=== PATIENT | female | born 1940 | race Asian ===

== ENCOUNTER 2017-08-03 20:58 | Inpatient (IN) | payer MEDICARE, OTHER ==
[~2017-08-03] VITALS: Ht 149.9 cm; Wt 57.2 kg
--- NOTE | 2017-08-03 23:46 | RADRPT ---
PROCEDURE: Chest. CLINICAL INDICATION: Chest pain. TECHNIQUE: Single frontal view of the chest was obtained. COMPARISON: None. FINDINGS: The cardiac silhouette is enlarged. The aortic arch is calcified. There is no focal consolidation, vascular congestion or pleural effusion. There is no pneumothorax. IMPRESSION: Mild cardiomegaly and aortic atherosclerosis. .Gianfranco Abbasi MD MD Date Time Electronically viewed and signed by .Gianfranco Abbasi MD, MD on 08/03/2017 23:46 .T/
--- NOTE | 2017-08-03 23:53 | RADRPT ---
PROCEDURE: CT Brain without contrast. CLINICAL INDICATION: Headache, syncope TECHNIQUE: A CT of the brain was performed utilizing axial imaging from the skull base through the vertex without intravenous contrast. Multiplanar reformatted images were made.The CTDIvol is 45.01 mGy and the DLP is 720.23 mGycm. One or more the following dose reduction techniques were utilized: Automated exposure control, adjus tment of the mA and / or kV according to patient's size, or use of iterative reconstruction techniqu e. DICOM images are available. COMPARISON: None. FINDINGS: There is no intracranial hemorrhage, mass effect, or midline shift. No extra-axial fluid collection is seen. Mild atrophy is identified with compensatory ventricular and sulcal enlargement. Mild to moderate decreased attenuation is seen in the periventricular and deep white matter, compatible wit h microvascular ischemic disease. The murray white matter differentiation is well preserved with no ac [place] infarct detected. No skull fracture seen. Appearance of fluid in the left sphenoid sinus which could be secondary to acute sinusitis. Arterial calcification. IMPRESSION: 1. No evidence of acute intracranial pathology. 2. Mild diffuse atrophy. 3. There is mild to moderate microvascular ischemic disease in the periventricular and deep white m atter. 4. Appearance of fluid in the left sphenoid sinus which could be secondary to acute sinusitis. RPTAT: HJES .Jose F Gandhi MD, MD Date Time Electronically viewed and signed by .Jose F Gandhi MD, MD on 08/03/2017 23:53 .S/
[2017-08-04] VITALS (18 sets, daily range): BP systolic 100–186; BP diastolic 40–101; PULSE 64–98; RESP 16–20; TEMP 98; Ht 149.9 cm; Wt 57.2 kg
[2017-08-04 00:41] LABS: BASOPHIL # 0.1 10^3/ul (0.0-0.1); BASOPHILS % 0.5 % (0.0-2.0); EOSINOPHILS % 0.2 % (0.0-7.0); HEMATOCRIT 34.5 % (37.0-47.0); MEAN CORPUSCULAR HEMOGLOBIN 28.6 pg (29.0-33.0); MEAN CORPUSCULAR HGB CONC 34.8 g/dl (32.0-37.0); MEAN CORPUSCULAR VOLUME 82.1 fl (82.0-101.0); MEAN PLATELET VOLUME 11.3 fl (7.4-10.4); MONOCYTES % 5.7 % (0.0-11.0); NEUTROPHIL # 13.7 10^3/ul (1.6-7.5); NEUTROPHILS % 80.7 % (39.0-77.0); PLATELET COUNT 398 10^3/UL (140-415); RED CELL DISTRIBUTION WIDTH 12.3 % (11.5-14.5)
[2017-08-04 00:56] LABS: INR 0.93; PROTIME 12.5 Sec (11.9-14.9)
--- NOTE | 2017-08-04 02:17 | ERD ---
ER Documentation Chief Complaint Chief Complaint weakness and shakey since last night, fall x4 today. -KO HPI This is a 77-year-old female complains of weakness and shakiness since last night. She states she fell 4 times today, 1 of which was a syncopal episode. No fevers no chills no nausea no vomiting no chest pain or palpitations. No focal neurologic complaints. No other current issues. ROS All systems reviewed and are negative except as per history of present illness. Allergies Allergies: Coded Allergies: Penicillins (Verified Allergy, Severe, Rash, 08/03/17) PMhx/Soc Medical and Surgical Hx: pt denies Surgical Hx History of Surgery: Yes (RIGHT SHOULDER, APPY, HYSTERECTOMY) Anesthesia Reaction: No Hx Neurological Disorder: No Hx Respiratory Disorders: No Hx Cardiac Disorders: Yes (HTN, HYPERLIPIDEMIA) Hx Psychiatric Problems: No Hx Miscellaneous Medical Probl: Yes (KIDNEY DISEASE IV, DM, HYPOTHYROID) Hx Alcohol Use: Yes (WINE) Hx Substance Use: No Hx Tobacco Use: No Smoking Status: Never smoker Physical Exam Vitals Vital Signs Date Time Temp Pulse Resp B/P Pulse Ox O2 Delivery O2 Flow Rate FiO2 08/04/17 01:17 60 14 200/77 100 Mask 4.0 Nasal Cannula 08/04/17 00:16 63 13 185/73 100 Mask 4.0 Nasal Cannula 08/03/17 23:13 97.8 63 18 167/66 92 Mask 8.0 08/03/17 21:33 96.5 96 18 213/88 99 Physical Exam Const: [] Head: Atraumatic Eyes: Normal Conjunctiva ENT: Normal External Ears, Nose and Mouth. Neck: Full range of motion..~ No meningismus. Resp: Clear to auscultation bilaterally Cardio: Regular rate and rhythm, no murmurs Abd: Soft, non tender, non distended. Normal bowel sounds Skin: No petechiae or rashes Back: No midline or flank tenderness Ext: No cyanosis, or edema Neur: Awake and alert Psych: Normal Mood and Affect Result Diagram: 08/04/17 0000 Results 24 hrs Laboratory Tests Test 08/04/17 00:00 White Blood Count 17.010^3/ul Red Blood Count 4.2010^6/ul Hemoglobin 12.0g/dl Hematocrit 34.5% Mean Corpuscular Volume 82.1fl Mean Corpuscular Hemoglobin 28.6pg Mean Corpuscular Hemoglobin Concent 34.8g/dl Red Cell Distribution Width 12.3% Platelet Count 50690^3/UL Mean Platelet Volume 11.3fl Neutrophils % 80.7% Lymphocytes % 12.0% Monocytes % 5.7% Eosinophils % 0.2% Basophils % 0.5% Nucleated Red Blood Cells % 0.0/100WBC Neutrophils # 13.710^3/ul Lymphocytes # 2.010^3/ul Monocytes # 1.010^3/ul Eosinophils # 0.010^3/ul Basophils # 0.110^3/ul Nucleated Red Blood Cells # 0.010^3/ul Prothrombin Time 12.5Sec Prothrombin Time Ratio 1.0 INR International Normalized Ratio 0.93 Activated Partial Thromboplast Time 28.0Sec Procedures/MDM EKG: Rate/Rhythm: [Normal Sinus Rhythm] QRS, ST, T-waves: [No changes consistent w/ acute ischemia] Impression: [No evidence of ischemia or arrhythmia] Chest X-ray 1V Interpreted by me: Soft Tissue: No acute abnormalities Bones: No acute abnormalities Mediastinum/Cardiac Silhouette/Lungs: [No acute abnormalities] Patient's syncopal symptoms are unstable at this time and require inpatient workup. No evidence of PE or dissection at this time but occult ischemia or fatal dysrhythmia cannot be ruled out. Departure Diagnosis: Primary Impression: Syncope Syncope type: unspecified Qualified Code: R55 - Syncope, unspecified syncope type Condition: Serious LAURAPAULINA WHELANJerome Aug 04, 2017 02:17
[2017-08-04] MEDS ORDERED: SOD CHLORIDE 0.9% 1,000 ML IV STA (02:52)
[2017-08-04 02:54] LABS: CALCIUM 9.2 mg/dl (8.4-10.2); CREATININE 2.13 mg/dl (0.44-1.00); POTASSIUM 5.2 mmol/L (3.5-5.1)
[2017-08-04 02:55] LABS: TROPONIN-I 0.121 ng/ml (0.00-0.12)
[2017-08-04] MEDS ORDERED: hydrALAzine 20 MG INJ IV ONE (03:00)
[2017-08-04] MEDS ORDERED: INSULIN REGULAR, HUMAN 100 UNIT/1 ML 3ML VIAL SC ONE (03:00)
[2017-08-04 04:26] LABS: URINE BLOOD (Dip) POC Trace-lysed (NEGATIVE)
[2017-08-04] MEDS ORDERED: INSULIN ASPART [NOVOLOG] 3 ML PEN SC ONE (04:39)
[2017-08-04 04:40] LABS: AADO2 Arterial 28.8 mmHg (7.0-24.0); Allen Test ACCEPTAB; Arterial Base Excess -5.7 mmol/L (-3.0-3); Arterial COHb 0.3 % (0.0-3.0); Arterial Fraction of Oxyhgb 98.3 % (93.0-99.0); Arterial HCO3 16.5 mmol/L (22.0-26.0); Arterial MetHb 0.2 % (0.0-1.5); Arterial Total Hemglobin 12.7 g/dl (12.0-18.0); MODE NASAL CANNULA
[2017-08-04] MEDS ORDERED: INSULIN ASP PROT/ASPART (70/30) PEN SC ONE (05:00)
[2017-08-04 05:08] LABS: CALCIUM 8.5 mg/dl (8.4-10.2); CREATININE 2.09 mg/dl (0.44-1.00)
[2017-08-04 05:20] LABS: CK-MB 6.43 ng/ml (0.0-2.4)
[2017-08-04 05:23] LABS: TROPONIN-I 0.185 ng/ml (0.00-0.12)
[2017-08-04] MEDS ORDERED: morphine 2 MG INJ IV PRN (05:30)
[2017-08-04] MEDS ORDERED: ALBUTEROL/IPRATROPIUM (NEB) 3 ML AMP NEB PRN (05:30)
[2017-08-04] MEDS ORDERED: INSULIN HUMAN REGULAR 100 UNIT in SOD CHLORIDE 0.9% 99 ML IV SCH (05:30)
[2017-08-04] MEDS ORDERED: METOPROLOL 25 MG TAB PO SCH ×2 (05:30→09:00)
[2017-08-04] MEDS ORDERED: DEXTROSE 50% 50 ML SYRINGE IV PRN ×2 (05:30)
[2017-08-04] MEDS ORDERED: ONDANSETRON 4 MG INJ IV PRN (05:30)
[2017-08-04] MEDS: ACCU-CHEK XX SCH ×19 (05:50→23:30)
[2017-08-04] MEDS: SOD CHLORIDE 0.9% 1,000 ML IV SCH ×2 (05:55→15:30)
[2017-08-04 05:58] LABS: BASOPHIL # 0.1 10^3/ul (0.0-0.1); BASOPHILS % 0.6 % (0.0-2.0); EOSINOPHILS # 0.1 10^3/ul (0.0-0.5); EOSINOPHILS % 0.5 % (0.0-7.0); HEMATOCRIT 34.9 % (37.0-47.0); HEMOGLOBIN 12.3 g/dl (12.0-16.0); LYMPHOCYTES # 2.7 10^3/ul (0.8-2.9); MEAN CORPUSCULAR HEMOGLOBIN 28.7 pg (29.0-33.0); MEAN CORPUSCULAR HGB CONC 35.2 g/dl (32.0-37.0); MEAN CORPUSCULAR VOLUME 81.5 fl (82.0-101.0); MEAN PLATELET VOLUME 11.5 fl (7.4-10.4); MONOCYTE # 1.1 10^3/ul (0.3-0.9); NEUTROPHIL # 13.7 10^3/ul (1.6-7.5); NEUTROPHILS % 77.2 % (39.0-77.0); PLATELET COUNT 395 10^3/UL (140-415); RED BLOOD COUNT 4.28 10^6/ul (4.20-5.40); RED CELL DISTRIBUTION WIDTH 11.9 % (11.5-14.5); WHITE BLOOD COUNT 17.7 10^3/ul (4.8-10.8)
[2017-08-04 06:15] LABS: BILIRUBIN,INDIRECT 0.2 mg/dl (0-1.1); BILIRUBIN,TOTAL 0.2 mg/dl (0.2-1.3); MAGNESIUM 2.2 mg/dl (1.7-2.5); TOTAL PROTEIN 6.5 g/dl (6.1-8.1)
[2017-08-04] MEDS: HEPARIN 5,000 UNIT/0.5 ML VIAL SC SCH ×3 (06:18→22:31)
[2017-08-04] MEDS: hydrALAzine 20 MG INJ IV PRN ×2 (06:27→16:21)
--- NOTE | 2017-08-04 07:22 | RADRPT ---
PROCEDURE: Retroperitoneal US. CLINICAL INDICATION: Renal insufficiency TECHNIQUE: Multiple sonographic images of the kidneys and retroperitoneum were obtained. The imag es were reviewed on a PACS workstation. COMPARISON: No prior studies are available for comparison. FINDINGS: The kidneys are normal in size, contour, cortical thickness and cortical echogenicity. The right kidney measures 11.4 cm. The left kidney measures 9.8 cm. No kidney stones are visualized. There is no evidence for hydronephrosis. The urinary bladder is normal. RPTAT: AA IMPRESSION: Unremarkable retroperitoneal ultrasound. .Kurt Guevara MD, Date Time Electronically viewed and signed by .Kurt Guevara MD, on 08/04/2017 07:22 .S/
--- NOTE | 2017-08-04 07:29 | RADRPT ---
AMENDMENT: 08/04/2017 8:03:23 AM Ledy Anderson Md In addition to the previously mentioned findings, there does appear to be incidental stenosis of the external carotid arteries with peak systolic velocity on the right of 227 centimeters per second an d on the left of 268 cm/sec. PROCEDURE: Doppler US Carotids. CLINICAL INDICATION: SYNCOPE TECHNIQUE: Multiple sonographic of the carotid bifurcation region and vertebral arteries were obta ined utilizing murray scale, duplex and color-flow imaging. The images were reviewed on a PACS worksta tion. Stenoses were measured using velocity criteria that are extrapolated from diameter data as def ined by the Society of Radiologists in Ultrasound Consensus Conference Radiology 2003; 229;340-346. This study does indirectly reference the measurement of the distal ICA diameter as the denominator f or stenosis measurement, where measured. COMPARISON: None FINDINGS: Evaluation of the right carotid system shows intimal medial thickening with partially calcified plaq ue in the carotid bulb and proximal internal carotid artery. No hemodynamically significant stenosis . Evaluation of the left carotid system shows intimal medial thickening with partially calcified plaqu e in the carotid bulb and proximal internal carotid artery. No hemodynamically significant stenosis. There is antegrade flow within the vertebral arteries bilaterally. RIGHT CAROTID MEASUREMENTS: Common Carotid Teqrqn70.7 (cm/sec) Internal Carotid Artery - bwsbvkja84.3 (cm/sec) Internal Carotid Artery - mid68.5 (cm/sec) Internal Carotid Artery - cwtgbu13.8 (cm/sec) Internal Carotid/Common Carotid0.8 LEFT CAROTID MEASUREMENTS: Common Carotid Artery 97.3 (cm/sec) Internal Carotid Artery - proximal 106.2 (cm/sec) Internal Carotid Artery - mid 95.1 (cm/sec) Internal Carotid Artery - distal 85.7 (cm/sec) Internal Carotid/Common Carotid 1.1 IMPRESSION: Mild atherosclerotic change. No hemodynamically significant stenosis of the common or internal carot id arteries. RPTAT: HLBE Physician Nu Date Time Electronically viewed and signed by Roseline Anderson Physician on 08/04/2017 08:04 MALIK/
--- NOTE | 2017-08-04 07:39 | HP ---
Date/Time of Note Date/Time of Note DATE: 08/04/17 TIME: 07:34 Assessment/Plan VTE Prophylaxis VTE Prophylaxis Intervention: heparin Assessment/Plan Assessment/Plan 1. NSTEMI -Admit to monitored unit -Trend troponin -Supplemental oxygen, aspirin, statin, beta-justice with as needed nitro morphine -Will obtain a 2D echo and place a cardiology consult -Based on a repeat troponin level, a decision will be made about starting treatment dose anticoagulation 2. Frequent fall, with a possible syncope -Head CT negative for acute findings -See above for cardiac workup -Obtain carotid Doppler ultrasound -Physical therapy eval 3. Diabetes, with a significant hyperglycemia -Admit to ICU and continue insulin drip 4. Hypertensive urgency: Blood pressure better controlled - Continue antihypertensives with adjustment as needed 5. Hyponatremia, this is pseudo-hyponatremia from hyperglycemia -Correct the hyperglycemia, IV fluid 6. History of CKD -Will get nephrology to follow along 7. History of hypothyroidism -Check TSH -Obtain home medications HPI/ROS Admit Date/Time Admit Date/Time Hx of Present Illness This is a 77-year-old female with a history of hypertension, dyslipidemia, CKD, hypothyroidism, diabetes who presented to the ER complaining of generalized weakness, dizziness, fall and loss of consciousness. She has been feeling weak , especially the past 3 days also. She also has been feeling dizzy and fell down at least 3 times, the last one occurred while she was taking a shower. She said she hit her head against the wall. The patient may have had one episode where she had brief loss of consciousness when she fell down. No chest pain, but reported occasional shortness of breath. When she presented to the ER, blood pressure was severely elevated at 231/88. Head CT without acute findings, but with a questionable acute sinusitis. First troponin was 0.122 in the second 1 is 0.185. Her blood glucose was greater than 700, WBC 17,000, sodium 127, potassium 5.2, bicarb 22, BUN 54, creatinine 2.13. Initial anion gap was 18 was 1+ ketones in her urine. EKG without ST elevation or depression. PMH/Family/Social Social History Smoking Status: Never smoker Exam/Review of Systems Vital Signs Vitals Vital Signs Date Time Temp Pulse Resp B/P Pulse Ox O2 Delivery O2 Flow Rate FiO2 08/04/17 07:00 97.9 52 16 127/44 100 Nasal Cannula 3.0 Intake and Output 08/03/17 08/03/17 08/04/17 15:00 23:00 07:00 Intake Total 1000 ml Balance 1000 ml Exam Constitutional: other (Appears weak. Sleepy but arousable) Head: atraumatic, normocephalic Eyes: PERRL Respiratory: clear to auscultation Cardiovascular: nl pulses, regular rate and rhythm Gastrointestinal: non-tender, soft Extremities: normal pulses Labs Result Diagram: 08/04/1742308/04/17423 Medications Medications Current Medications Ondansetron HCl (Zofran Inj) 4 mg Q6H PRN IV NAUSEA AND/OR VOMITING; Start 08/04/17 at 05:30 Acetaminophen (Tylenol Liquid) 650 mg Q6H PRN PO PAIN LEVEL 1-3 OR FEVER; Start 08/04/17 at 05:30 Morphine Sulfate (morphine) 2 mg Q4H PRN IV PAIN LEVEL 7-10; Start 08/04/17 at 05:30 Famotidine (Pepcid) 20 mg DAILY PO ; Start 08/04/17 at 09:00 Heparin Sodium (Porcine) (Heparin (5000 Units/0.5 ml)) 5,000 unit Q8 SC Last administered on 08/04/17 06:18; Admin Dose 5,000 UNIT; Start 08/04/17 at 06:00 Diagnostic Test (Pha) (Accu-Chek) 1 ea Q1H XX Last administered on 08/04/17 06 :19; Admin Dose 1 EA; Start 08/04/17 at 05:30 Dextrose (D50w Syringe) 25 ml Q15M PRN IV Till BS 80 mg/dL or above x2; Start 08/04/17 at 05:30 Dextrose 50 ml 50 ml Q15M PRN IV Till BS 80 mg/dL or above x2; Start 08/04/17 at 05:30 Sodium Chloride (NS) 1,000 ml @ 100 mls/hr Q10H IV Last administered on 05:55; Admin Dose 100 MLS/HR; Start 08/04/17 at 05:30 Aspirin (Halfprin) 81 mg DAILY PO ; Start 08/04/17 at 09:00 Hydralazine HCl (Apresoline) 10 mg Q4H PRN IV SBP > 160 Last administered on t 06:27; Admin Dose 10 MG; Start 08/04/17 at 05:30 Atorvastatin Calcium (Lipitor) 40 mg DAILY PO ; Start 08/04/17 at 09:00 Metoprolol Tartrate (Lopressor) 25 mg Q12 PO ; Start 08/04/17 at 09:00 PAULINA CAZARES MD Aug 04, 2017 07:39
[2017-08-04] MEDS ORDERED: CLON0.3T PO (07:58)
[2017-08-04] MEDS ORDERED: METO-336 PO (08:01)
[2017-08-04] MEDS ORDERED: SIMV40TA2 PO (08:02)
[2017-08-04] MEDS ORDERED: FURO20TA3 PO (08:02)
[2017-08-04 08:13] LABS: THYROID STIMULATING HORMONE 0.811 MIU/L (0.465-4.680)
[2017-08-04] MEDS: ATORVASTATIN 40 MG TAB PO SCH (09:00)
[2017-08-04] MEDS: ASPIRIN (EC) 81 MG TAB PO SCH (09:00)
[2017-08-04] MEDS: CEFTRIAXONE 1 GM/50 ML (PMX) 50 ML IVPB SCH (10:00)
[2017-08-04] MEDS: FAMOTIDINE 20 MG TAB PO SCH (10:05)
[2017-08-04] MEDS: ACETAMINOPHEN 650MG/20.3ML CUP PO PRN (10:06)
--- NOTE | 2017-08-04 11:21 | CONS ---
DATE OF ADMISSION: 08/03/2017 DATE OF CONSULTATION: 08/04/2017 NEPHROLOGY CONSULTATION REASON FOR CONSULTATION: Acute kidney injury. PHYSICIAN REQUESTING CONSULT: Ben Laura MD. HISTORY OF PRESENT ILLNESS: This is a 77-year-old female with a past medical history of hypertensio n, dyslipidemia, chronic kidney disease, hypothyroidism, and diabetes who presented to the emergency room complaining of generalized weakness, dizziness and fall with loss of consciousness. The patie nt was feeling weak, approximately 3 days ago and she fell down multiple times. As a result, she ca me into the emergency room for evaluation. Upon arrival, the patient was noted to be hypertensive w ith systolic pressures of 200. Head CT showed findings of acute sinusitis. The patient's laborator y data showed a sodium level of 127, a BUN of 54, creatinine 2.13, and a glucose level 731, as well as white count 17.7. In the emergency room, the patient was given IV insulin and IV fluids. In terms of the patient's renal history, the patient has underlying history of chronic kidney diseas e. The patient denies any hemoptysis, hematemesis, hematochezia at this time. PAST MEDICAL HISTORY: History of hypertension, dyslipidemia, CKD, hypothyroidism. PAST SURGICAL HISTORY: History of right shoulder surgery, hysterectomy. FAMILY HISTORY: Noncontributory. ALLERGIES: PENICILLIN. MEDICATIONS: The patient's medications have been reviewed. REVIEW OF SYSTEMS: A 14-point review of systems was conducted. Pertinent positives stated in HPI, otherwise negative. PHYSICAL EXAMINATION: VITAL SIGNS: Blood pressure is 127/44, respirations 16, pulse 52, temperature 97.9. HEENT: Head is normocephalic. NECK: Supple. HEART: Regular rate. LUNGS: Show diminished breath sounds at base. ABDOMEN: Soft, nontender to palpation without rebound or guarding. EXTREMITIES: Negative for clubbing, cyanosis. No edema. DERMATOLOGIC: No rashes. MUSCULOSKELETAL: No joint effusions. NEUROLOGIC: No change in exam. MEDICATIONS: The patient's medications have been reviewed. LABORATORY DATA: Shows sodium 131, potassium 4.0, BUN 51, creatinine 2.09, glucose 624. White coun t 17.7, hemoglobin is 12.3 and platelet count 395. Urinalysis shows positive ketones, positive gluc ose. ASSESSMENT AND PLAN: This is a 77-year-old female who presents with: 1. Nonoliguric acute kidney injury on top of chronic kidney disease with unknown baseline creatinin e. Etiology of acute kidney injury is likely secondary to hemodynamics. Other possibilities includ ing tubular injury or interstitial nephritis is a consideration. Plan at this point is to do a full evaluation. We will check urinalysis with microanalysis. Check urine electrolytes. We will check a renal ultrasound to rule out obstruction. We will recommend to continue gentle IV hydration. Ot herwise, continue supportive care, renally dose all medications, avoid nephrotoxins. 2. Hyponatremia. Etiology secondary to hypoglycemia. The patient's corrected sodium level would b e approximately 135 mEq. Would therefore recommend to improve glycemic control, once euglycemia is achieved the patient's sodium level should normalize. 3. Anion gap metabolic acidosis secondary to acute kidney injury and possible ketoacidosis. At thi s point, would continue current treatment plan. Continue to treat underlying diabetes and mild DKA. We will monitor closely. 4. Anemia. Monitor hemoglobin and hematocrit levels. 5. Mineral bone disorder. Monitor calcium and phosphorus levels. 6. Non-ST elevation myocardial infarction. Continue current medical management. 7. Diabetes. Continue current insulin regimen, consider insulin drip. 8. Hypertensive urgency. The patient's blood pressures have improved. Continue current blood pres sure regimen. Would defer BRENT inhibitor in the setting of acute kidney injury at this time. Also m onitor closely on IV fluids. If blood pressure remains elevated, would discontinue IV hydration. 9. Hypothyroidism. Continue Synthroid. Thank you, Dr. Laura, for this interesting consultation. It will be a pleasure to follow patient yadi hurst throughout the hospital course. Dictated By: DENTON MCCORMACK/CLARENCE Conf#: [id number] DID#: [id number]
[2017-08-04 16:55] LABS: CALCIUM 8.5 mg/dl (8.4-10.2); CREATININE 1.81 mg/dl (0.44-1.00); POTASSIUM 3.3 mmol/L (3.5-5.1)
[2017-08-04 17:37] LABS: CALCIUM 8.2 mg/dl (8.4-10.2); CREATININE 1.85 mg/dl (0.44-1.00); PHOSPHORUS 3.1 mg/dl (2.5-4.9); POTASSIUM 3.3 mmol/L (3.5-5.1)
[2017-08-04] MEDS ORDERED: LABETALOL HCL 20MG INJ IV PRN (18:00)
--- NOTE | 2017-08-04 18:00 | RADRPT ---
Echocardiogram Report Patient Name: TANVIR TERESA C Gender: Female Date: 1940 Study Date: 04-Aug-2017 Apparel Cutter: Eliezer Esposito [facility] Location: [facility] Ref. Physician: PAULINA CAZARES Quality: Adequate Procedures: Transthoracic echocardiogram with complete 2D, M-Mode, and doppler examination. Indications: NSTEMI. 2D/M Mode Doppler Measurement Value Normal Ranges Measurement Value Normal Ranges LVIDd 2D 4.0 3.5 - 5.6 cm AV Peak Marquise 2.1 m/sec LVIDs 2D 2.3 2.1 - 4.1 cm AV Peak PG 17.0 mmHg FS 2D 43.1 % LVOT Peak Marquise 1.4 m/sec LVPWd 2D 1.5 0.6 - 1.1 cm LVOT Peak PG 8.0 mmHg IVSd 2D 1.5 0.6 - 1.1 cm MV E Peak Marquise 0.8 m/sec IVS/LVPW 2D 1.0 MV A Peak Marquise 1.0 m/sec AoR Diam 2D 2.6 2.0 - 3.7 cm MV E/A 0.7 LA/Ao 2D 2 0 - 1 MV Decel Time 401 msec EDV 2D 63.5 cm3 MV E/A 0.7 ESV 2D 11.7 cm3 TR Peak Marquise 2.9 m/sec LA Dimen 2D 4.1 2.3 - 4.0 cm TR Peak PG 34.0 mmHg RVSP 37.0 mmHg Findings Left Ventricle: Hyperdynamic left ventricular systolic function. Normal left ventricular cavity size. Severe concentric left ventricular hypertrophy. Ejection fraction is visually estimated at 70 %. Tissue Doppler/Mitral Doppler indices are consistent with impaired relaxation (Stage I diastolic dysfunction). Right Ventricle: Normal right ventricular size. Normal right ventricular systolic function. Left Atrium: There is mild enlargement of left atrium. Right Atrium: The right atrium is normal in size. Mitral Valve: Normal appearance and function of the mitral valve with trace physiologic regurgitation. Aortic Valve: Aortic sclerosis without stenosis. Tricuspid Valve: Normal appearance of the tricuspid valve. Estimated peak PA systolic pressure 37 mmHg. There is mild tricuspid regurgitation. Pericardium: Normal pericardium with no significant pericardial effusion. Aorta: Normal aortic root. IVC: Normal size and normal respiratory collapse consistent with normal right atrial pressure. Conclusions 1.The left ventricle is normal in size with hyperdynamic systolic function. 2.Estimated left ventricular ejection fraction of >70%. 3.Severe concentric left ventricular hypertrophy. Grade 1 diastolic dysfunction. Electronically Signed By: Joel Gates 04-Aug-2017 18:00:16 -0800 Patient Name: TANVIR TERESA C Study Date: 04-Aug-2017 [id number]
[2017-08-04] MEDS: DEXTROSE 5%-0.45% NACL 1,000 ML IV SCH (19:13)
--- NOTE | 2017-08-04 20:22 | CONS ---
Date/Time of Note Date/Time of Note DATE: 08/04/17 TIME: 20:10 Assessment/Plan Assessment/Plan Chief Complaint/Hosp Course Assessment: NSTEMI - likely type 2 Accelerated hypertension Acute kidney injury on chronic kidney disease Diabetic ketoacidosis - improved on insulin drip, anion gap closed Insulin-dependent diabetes mellitus Dyslipidemia Leukocytosis - possibly reactive, rule out infection Recommendations: -continue aspirin and statin -carvedilol 12.5mg BID -continue clonidine 0.2mg TID -echocardiogram showed LVEF >70%, severe LVH -cardiac stress test when other acute issues resolved Problems: Consultation Date/Type/Reason Admit Date/Time Type of Consultation: Cardiology Reason for Consultation elevated troponin Hx of Present Illness The patient is a 77 year-old female who presented with generalized weakness, dizziness, and several falls with one episode of syncope. She was found to be in diabetic ketoacidosis with severe hyperglycemia and anion gap of 18 and accelerated hypertension with blood pressures up to 213/88. Initial troponin was 0.121 and has trended up to 1.0. EKG showed normal sinus rhythm without acute ischemic changes. The patient denies chest pain. 14 point review of systems negative other than per HPI. Past Medical History Hypertension Dyslipidemia Chronic kidney disease Insulin-dependent diabetes mellitus Past Surgical History Hysterectomy Appendectomy Right shoulder surgery Cyst removal from breast Family History Significant Family History: no pertinent family hx Social History Smoking Status: Never smoker Exam/Review of Systems Vital Signs Vitals Vital Signs Date Time Temp Pulse Resp B/P Pulse Ox O2 Delivery O2 Flow Rate FiO2 08/04/17 19:00 91 16 151/101 100 Room Air 08/04/17 17:40 2.0 08/04/17 17:15 98.9 Intake and Output 08/03/17 08/03/17 08/04/17 15:00 23:00 07:00 Intake Total 1000 ml Balance 1000 ml Exam Constitutional: alert, well developed Psych: nl mood/affect, no complaints Head: atraumatic, normocephalic Eyes: nl conjunctiva ENMT: nl external ears & nose, nl nasal mucosa & septum Neck: non-tender, supple Respiratory: clear to auscultation, normal air movement Cardiovascular: regular rate and rhythm Gastrointestinal: non-tender, soft Musculoskeletal: nl extremities to inspection Extremities: No clubbing, No cyanosis, No edema Neurological: nl mental status, nl speech Skin: nl turgor Results Result Diagram: 08/04/17 0424 08/04/17 1625 Results 24 hrs Laboratory Tests Test 08/04/17 00:00 08/04/17 03:27 08/04/17 04:03 08/04/17 04:08 White Blood Count 17.0 H Red Blood Count 4.20 Hemoglobin 12.0 Hematocrit 34.5 L Mean Corpuscular Volume 82.1 Mean Corpuscular Hemoglobin 28.6 L Mean Corpuscular Hemoglobin Concent 34.8 Red Cell Distribution Width 12.3 Platelet Count 398 Mean Platelet Volume 11.3 H Neutrophils % 80.7 H Lymphocytes % 12.0 L Monocytes % 5.7 Eosinophils % 0.2 Basophils % 0.5 Nucleated Red Blood Cells % 0.0 Neutrophils # 13.7 H Lymphocytes # 2.0 Monocytes # 1.0 H Eosinophils # 0.0 Basophils # 0.1 Nucleated Red Blood Cells # 0.0 Prothrombin Time 12.5 Prothrombin Time Ratio 1.0 INR International Normalized Ratio 0.93 Activated Partial Thromboplast Time 28.0 Sodium Level 127 L Potassium Level 5.2 H Chloride Level 92 L Carbon Dioxide Level 22 Anion Gap 18 H Blood Urea Nitrogen 54 H Creatinine 2.13 H Glucose Level 731 *H Calcium Level 9.2 Troponin I 0.121 *H Bedside Glucose > 595 *H > 595 *H Blood Gas Specimen Source Blood arterial Arterial Blood Date Drawn 08/04/2017 4:30:18 AM Arterial Blood pH (Temp corrected) 7.454 H Arterial Blood pCO2 (Temp correct) 24.0 L Arterial Blood pO2 (Temp corrected) 156.9 H Arterial Blood HCO3 16.5 L Arterial Blood Base Excess -5.7 L Arterial Blood Oxygen Saturation 98.8 Dean Test ACCEPTAB Arterial Blood Gas Puncture Site Left Radial Arterial Blood Carboxyhemoglobin 0.3 Arterial Blood Methemoglobin 0.2 Blood Gas A-a O2 Differential 28.8 H Oxyhemoglobin Percent 98.3 Total Hemoglobin 12.7 Blood Gas Temperature 37.0 Blood Gas Actual Respiration Rate 20 Blood Gas Modality NASAL CANNULA FiO2 30.0 Blood Gas Notified Whom Blood Gas Notified Time 08/04/2017 4:40:11 AM Test 08/04/17 04:24 08/04/17 04:25 08/04/17 04:34 08/04/17 05:27 White Blood Count 17.7 H Red Blood Count 4.28 Hemoglobin 12.3 Hematocrit 34.9 L Mean Corpuscular Volume 81.5 L Mean Corpuscular Hemoglobin 28.7 L Mean Corpuscular Hemoglobin Concent 35.2 Red Cell Distribution Width 11.9 Platelet Count 395 Mean Platelet Volume 11.5 H Neutrophils % 77.2 H Lymphocytes % 15.0 Monocytes % 6.0 Eosinophils % 0.5 Basophils % 0.6 Nucleated Red Blood Cells % 0.0 Neutrophils # 13.7 H Lymphocytes # 2.7 Monocytes # 1.1 H Eosinophils # 0.1 Basophils # 0.1 Nucleated Red Blood Cells # 0.0 Sodium Level 131 L Potassium Level 4.0 Chloride Level 97 Carbon Dioxide Level 20 L Anion Gap 18 H Blood Urea Nitrogen 51 H Creatinine 2.09 H Glucose Level 624 *H Calcium Level 8.5 Creatine Kinase 338 H Creatine Kinase Index 1.9 Creatinine Kinase MB (Mass) 6.43 H Troponin I 0.185 *H Bedside Urine pH (LAB) 5.0 Bedside Urine Protein (LAB) 3+ H Bedside Urine Glucose (UA) 0.50% H Bedside Urine Ketones (LAB) 1+ H Bedside Urine Blood Trace-lysed H Bedside Urine Nitrite (LAB) Negative Bedside Urine Leukocyte Esterase (L Negative Hemoglobin A1c 12.2 H Magnesium Level 2.2 Total Bilirubin 0.2 Direct Bilirubin 0.00 Indirect Bilirubin 0.2 Aspartate Amino Transf (AST/SGOT) 28 Alanine Aminotransferase (ALT/SGPT) 35 Alkaline Phosphatase 95 Total Protein 6.5 Albumin 3.0 L Triglycerides Level 213 H Cholesterol Level 145 LDL Cholesterol, Calculated 66 HDL Cholesterol 36 Cholesterol/HDL Ratio 4.0 Thyroid Stimulating Hormone (TSH) 0.811 Bedside Glucose 512 *H Test 08/04/17 06:22 08/04/17 07:36 08/04/17 09:09 08/04/17 10:13 Bedside Glucose 367 H 312 H 258 H 219 Test 08/04/17 11:00 08/04/17 12:27 08/04/17 13:11 08/04/17 13:59 Bedside Glucose 189 152 120 98 Test 08/04/17 15:04 08/04/17 16:14 08/04/17 16:25 08/04/17 17:22 Bedside Glucose 111 124 145 Sodium Level 135 Potassium Level 3.3 L Chloride Level 105 Carbon Dioxide Level 20 L Anion Gap 13 Blood Urea Nitrogen 45 H Creatinine 1.85 H Glucose Level 132 Calcium Level 8.2 L Phosphorus Level 3.1 Troponin I 1.000 *H Albumin 3.0 L Test 08/04/17 18:30 08/04/17 19:31 Bedside Glucose 150 156 Medications Medications Current Medications Ondansetron HCl (Zofran Inj) 4 mg Q6H PRN IV NAUSEA AND/OR VOMITING; Start 08/04/17 at 05:30 Acetaminophen (Tylenol Liquid) 650 mg Q6H PRN PO PAIN LEVEL 1-3 OR FEVER Last administered on 08/04/17 10:06; Admin Dose 650 MG; Start 08/04/17 at 05:30 Morphine Sulfate (morphine) 2 mg Q4H PRN IV PAIN LEVEL 7-10; Start 08/04/17 at 05:30 Famotidine (Pepcid) 20 mg DAILY PO Last administered on 08/04/17 10:05; Admin Dose 20 MG; Start 08/04/17 at 09:00 Heparin Sodium (Porcine) (Heparin (5000 Units/0.5 ml)) 5,000 unit Q8 SC Last administered on 08/04/17 15:08; Admin Dose 5,000 UNIT; Start 08/04/17 at 06:00 Diagnostic Test (Pha) (Accu-Chek) 1 ea Q1H XX Last administered on 08/04/17 19 :31; Admin Dose 1 EA; Start 08/04/17 at 05:30 Dextrose (D50w Syringe) 25 ml Q15M PRN IV Till BS 80 mg/dL or above x2; Start 08/04/17 at 05:30 Dextrose (D50w Syringe) 50 ml Q15M PRN IV Till BS 80 mg/dL or above x2; Start 08/04/17 at 05:30 Aspirin (Halfprin) 81 mg DAILY PO Last administered on 08/04/17 09:00; Admin Dose 81 MG; Start 08/04/17 at 09:00 Hydralazine HCl (Apresoline) 10 mg Q4H PRN IV SBP > 160 Last administered on 16:21; Admin Dose 10 MG; Start 08/04/17 at 05:30 Atorvastatin Calcium (Lipitor) 40 mg DAILY PO Last administered on 08/04/17 09 :00; Admin Dose 40 MG; Start 08/04/17 at 09:00 Metoprolol Tartrate 25 mg 25 mg Q12 PO Last administered on 08/04/17 10:00; Admin Dose 25 MG; Start 08/04/17 at 09:00 Ceftriaxone Sodium (Rocephin) 50 ml @ 100 mls/hr Q24H IVPB Last administered on 08/04/17 10:00; Admin Dose 100 MLS/HR; Start 08/04/17 at 10:00 Clonidine (Catapres) 0.2 mg TID PO ; Start 08/04/17 at 21:00 Labetalol HCl 10 mg 10 mg Q4 PRN IV systolic bp>160; Start 08/04/17 at 18:00 Dextrose/Sodium Chloride 1,000 ml @ 100 mls/hr Q10H IV Last administered on 19:13; Admin Dose 100 MLS/HR; Start 08/04/17 at 19:00 Potassium Chloride/Dextrose (KCl/D5W) 110 ml @ 55 mls/hr ONCE ONCE IVPB ; Start 08/04/17 at 21:00; Stop 08/04/17 at 22:59 CANDELARIO AVINA MD Aug 04, 2017 20:22
[2017-08-04] MEDS ORDERED: POTASSIUM CHLORIDE 20 MEQ in DEXTROSE 5% 100 ML IVPB ONE (21:00)
[2017-08-05] VITALS (33 sets, daily range): BP systolic 105–203; BP diastolic 6–81; PULSE 51–84; RESP 14–20
[2017-08-05] MEDS: ACCU-CHEK XX SCH ×10 (00:44→10:08)
[2017-08-05] MEDS: hydrALAzine 20 MG INJ IV PRN ×2 (03:01→16:11)
[2017-08-05] MEDS: DEXTROSE 5%-0.45% NACL 1,000 ML IV SCH (05:00)
[2017-08-05] MEDS: HEPARIN 5,000 UNIT/0.5 ML VIAL SC SCH ×3 (05:50→21:40)
[2017-08-05] MEDS ORDERED: AMLODIPINE 10 MG TAB PO SCH (06:00)
[2017-08-05 06:05] LABS: BASOPHIL # 0.1 10^3/ul (0.0-0.1); BASOPHILS % 0.7 % (0.0-2.0); EOSINOPHILS # 0.3 10^3/ul (0.0-0.5); EOSINOPHILS % 1.7 % (0.0-7.0); HEMATOCRIT 34.9 % (37.0-47.0); HEMOGLOBIN 12.1 g/dl (12.0-16.0); LYMPHOCYTES # 2.8 10^3/ul (0.8-2.9); LYMPHOCYTES % 17.5 % (15.0-51.0); MEAN CORPUSCULAR HEMOGLOBIN 28.2 pg (29.0-33.0); MEAN CORPUSCULAR HGB CONC 34.7 g/dl (32.0-37.0); MEAN CORPUSCULAR VOLUME 81.4 fl (82.0-101.0); MONOCYTE # 1.1 10^3/ul (0.3-0.9); MONOCYTES % 7.1 % (0.0-11.0); NEUTROPHIL # 11.6 10^3/ul (1.6-7.5); NEUTROPHILS % 72.3 % (39.0-77.0); PLATELET COUNT 410 10^3/UL (140-415); RED BLOOD COUNT 4.29 10^6/ul (4.20-5.40); RED CELL DISTRIBUTION WIDTH 12.3 % (11.5-14.5)
[2017-08-05 06:17] LABS: ADD UMIC YES; UR ASCORBIC ACID NEGATIVE (NEGATIVE); UR BACTERIA MODERATE /HPF (NONE SEEN); UR BILIRUBIN (Dip) NEGATIVE (NEGATIVE); UR BLOOD (Dip) 1+ mg/dL (NEGATIVE); UR CLARITY TURBID (CLEAR); UR COLOR YELLOW (YELLOW); UR GLUCOSE (Dip) 1+ mg/dL (NEGATIVE); UR KETONES (Dip) NEGATIVE (NEGATIVE); UR LEUKOCYTE ESTERASE (Dip) 3+ Leu/ul (NEGATIVE); UR NITRITE (Dip) NEGATIVE (NEGATIVE); UR RBC 60 /HPF (0-5); UR SPECIFIC GRAVITY (Dip) 1.015 (1.003-1.030); UR SQUAMOUS EPITHELIAL CELL MODERATE /HPF (FEW); UR TOTAL PROTEIN (Dip) 2+ mg/dl (NEGATIVE); UR TRANSITIONAL EPI CELL FEW /HPF (NONE SEEN); UR UROBILINOGEN (Dip) NEGATIVE (NEGATIVE)
[2017-08-05 06:29] LABS: CALCIUM 8.1 mg/dl (8.4-10.2); CREATININE 1.78 mg/dl (0.44-1.00); MAGNESIUM 1.9 mg/dl (1.7-2.5); PHOSPHORUS 2.6 mg/dl (2.5-4.9); POTASSIUM 3.9 mmol/L (3.5-5.1)
[2017-08-05] MEDS: ASPIRIN (EC) 81 MG TAB PO SCH (08:07)
[2017-08-05] MEDS: ATORVASTATIN 40 MG TAB PO SCH (08:08)
[2017-08-05] MEDS: FAMOTIDINE 20 MG TAB PO SCH (08:08)
[2017-08-05] MEDS: CEFTRIAXONE 1 GM/50 ML (PMX) 50 ML IVPB SCH (10:08)
[2017-08-05] MEDS ORDERED: DEXTROSE 50% 50 ML SYRINGE IV PRN ×2 (10:30)
[2017-08-05] MEDS ORDERED: GLUCAGON 1 MG INJ IM PRN (10:30)
[2017-08-05] MEDS ORDERED: GLUCOSE GEL 15 GRAM TUBE PO PRN ×2 (10:30)
[2017-08-05] MEDS ORDERED: GLUCOSE GEL 15 GRAM TUBE BUCCAL PRN (10:30)
[2017-08-05] MEDS: INSULIN ASPART [NOVOLOG] 3 ML PEN SC SCH ×7 (10:51→21:00)
[2017-08-05] MEDS ORDERED: INSULIN GLARGINE [LANtus] 3 ML PEN SC SCH ×2 (11:00→20:00)
--- NOTE | 2017-08-05 13:17 | RADRPT ---
Vent Rate: 71 bpm RR Interval: 0 msec MN Interval: 134 msec QRS Duration: 82 msec QT Interval: 400 msec QTC Interval: 434 msec P-R-T [place]: 68 - 62 - 60 degrees Normal sinus rhythm Normal ECG Electronically Signed By: Maximo Sims [id number]
--- NOTE | 2017-08-05 14:37 | PN ---
Date/Time of Note Date/Time of Note DATE: 08/05/17 TIME: 14:37 Assessment/Plan VTE Prophylaxis VTE Prophylaxis Intervention: SCD's Lines/Catheters IV Catheter Type (from Nrs): Peripheral IV Urinary Cath still in place: No Assessment/Plan Chief Complaint/Hosp Course Subjective 12.7 patient feeling much better Objective Physical exam General: Patient is laying in bed and answers questions appropriately Mentation: Patient is alert and oriented 4, Head: Normocephalic atraumatic Eyes: EOMI, pupils reactive to light Neck: Supple, nontender, midline Respiratory: Clear to auscultation bilaterally Cardiovascular: regular rate, no obvious murmurs Gastrointestinal: non-tender to palpation, bowel sounds heard. Neurological: Moves all extremities spontaneously Skin: No new skin lesions Assessment and plan Non-ST elevated NH -Cardiology consultation appreciated -Downtrending, no chest pain during this event -Type II according to cardiology -Recommendations appreciated Uncontrolled diabetes mellitus -Near DKA on arrival -Downgraded from ICU after a day of insulin drip -Patient on 90 units of Lantus and glipizide at home, not optimal regimen -We will start Lantus with mealtime insulin -Hemoglobin A1c 12.5% Syncopal episode, frequent falls -Likely secondary to extreme hyperglycemia and near DKA compounded with sinusitis -Pending MRI -CT noted -Carotid Doppler noted, no acute issues Sinusitis -Ceftriaxone Hypertensive urgency -Patient's blood pressure is difficult to control -Patient on clonidine 0.3 mg 3 times daily at home, will use as as needed, starting amlodipine and Coreg here in the hospital Electrolyte derangement -Resolving, monitor History of chronic kidney disease -Nephrology following Hypothyroidism -Monitor Disposition -Optimize insulin control -PT OT -MRI pending -Cardiology recommendations Problems: Exam/Review of Systems Vital Signs Vitals Vital Signs Date Time Temp Pulse Resp B/P Pulse Ox O2 Delivery O2 Flow Rate FiO2 08/05/17 12:00 64 08/05/17 11:30 17 128/54 100 Room Air 08/05/17 07:30 98.5 08/05/17 02:59 2.0 27 Intake and Output 08/04/17 08/04/17 08/05/17 15:00 23:00 07:00 Intake Total 421.5 ml 707.5 ml Output Total 110 ml Balance 421.5 ml 597.5 ml Results Result Diagram: 08/05/17 0543 08/05/17 0543 Results 24 hrs Laboratory Tests Test 08/04/17 15:04 08/04/17 16:14 08/04/17 16:25 08/04/17 17:22 Bedside Glucose 111 124 145 Sodium Level 135 Potassium Level 3.3 L Chloride Level 105 Carbon Dioxide Level 20 L Anion Gap 13 Blood Urea Nitrogen 45 H Creatinine 1.85 H Glucose Level 132 Calcium Level 8.2 L Phosphorus Level 3.1 Troponin I 1.000 *H Albumin 3.0 L Test 08/04/17 18:30 08/04/17 19:31 08/04/17 20:35 08/04/17 22:32 Bedside Glucose 150 156 151 173 Test 08/05/17 00:44 08/05/17 01:32 08/05/17 02:51 08/05/17 03:22 Bedside Glucose 112 110 138 141 Test 08/05/17 03:30 08/05/17 05:33 08/05/17 05:43 08/05/17 06:12 Urine Color YELLOW Urine Clarity TURBID A Urine pH 5.0 Urine Specific [place] 1.015 Urine Ketones NEGATIVE Urine Nitrite NEGATIVE Urine Bilirubin NEGATIVE Urine Urobilinogen NEGATIVE Urine Leukocyte Esterase 3+ H Urine Microscopic RBC 60 H Urine Microscopic WBC > 182 H Urine Squamous Epithelial Cells MODERATE Urine Transitional Epithelial Cells FEW A Urine Bacteria MODERATE Urine Hemoglobin 1+ H Urine Random Creatinine 86.36 Urine Random Sodium 45 Urine Glucose 1+ H Urine Total Protein 190.0 H Bedside Glucose 194 158 White Blood Count 16.0 H Red Blood Count 4.29 Hemoglobin 12.1 Hematocrit 34.9 L Mean Corpuscular Volume 81.4 L Mean Corpuscular Hemoglobin 28.2 L Mean Corpuscular Hemoglobin Concent 34.7 Red Cell Distribution Width 12.3 Platelet Count 410 Mean Platelet Volume 11.0 H Neutrophils % 72.3 Lymphocytes % 17.5 Monocytes % 7.1 Eosinophils % 1.7 Basophils % 0.7 Nucleated Red Blood Cells % 0.0 Neutrophils # 11.6 H Lymphocytes # 2.8 Monocytes # 1.1 H Eosinophils # 0.3 Basophils # 0.1 Nucleated Red Blood Cells # 0.0 Sodium Level 132 L Potassium Level 3.9 Chloride Level 106 Carbon Dioxide Level 20 L Anion Gap 10 Blood Urea Nitrogen 38 H Creatinine 1.78 H Glucose Level 208 Calcium Level 8.1 L Phosphorus Level 2.6 Magnesium Level 1.9 Troponin I 0.692 *H Test 08/05/17 07:40 08/05/17 09:09 08/05/17 10:45 08/05/17 11:55 Bedside Glucose 77 97 224 H 301 H Medications Medications Current Medications Ondansetron HCl (Zofran Inj) 4 mg Q6H PRN IV NAUSEA AND/OR VOMITING; Start 08/04/17 at 05:30 Acetaminophen (Tylenol Liquid) 650 mg Q6H PRN PO PAIN LEVEL 1-3 OR FEVER Last administered on 08/04/17 10:06; Admin Dose 650 MG; Start 08/04/17 at 05:30 Morphine Sulfate (morphine) 2 mg Q4H PRN IV PAIN LEVEL 7-10; Start 08/04/17 at 05:30 Famotidine (Pepcid) 20 mg DAILY PO Last administered on 08/05/17 08:08; Admin Dose 20 MG; Start 08/04/17 at 09:00 Heparin Sodium (Porcine) (Heparin (5000 Units/0.5 ml)) 5,000 unit Q8 SC Last administered on 08/05/17 05:50; Admin Dose 5,000 UNIT; Start 08/04/17 at 06:00 Aspirin (Halfprin) 81 mg DAILY PO Last administered on 08/05/17 08:07; Admin Dose 81 MG; Start 08/04/17 at 09:00 Hydralazine HCl (Apresoline) 10 mg Q4H PRN IV SBP > 160 Last administered on 03:01; Admin Dose 10 MG; Start 08/04/17 at 05:30 Atorvastatin Calcium 40 mg 40 mg DAILY PO Last administered on 08/05/17 08:08 ; Admin Dose 40 MG; Start 08/04/17 at 09:00 Ceftriaxone Sodium (Rocephin) 50 ml @ 100 mls/hr Q24H IVPB Last administered on 08/05/17 10:08; Admin Dose 100 MLS/HR; Start 08/04/17 at 10:00 Labetalol HCl (Labetalol) 10 mg Q4 PRN IV systolic bp>160 Last administered on 08/05/17 03:33; Admin Dose 10 MG; Start 08/04/17 at 18:00 Carvedilol (Coreg) 12.5 mg BID PO Last administered on 08/05/17 08:07; Admin Dose 12.5 MG; Start 08/04/17 at 21:00 Amlodipine Besylate (Norvasc) 10 mg DAILY PO Last administered on 08/05/17 06: 03; Admin Dose 10 MG; Start 08/05/17 at 06:00 Diagnostic Test (Pha) (Accu-Chek) 1 ea 02 XX ; Start 08/06/17 at 02:00 Insulin Glargine (Lantus) 17 unit DAILY@20 SC ; Start 08/05/17 at 20:00 Clonidine (Catapres) 0.1 mg TID PRN PO SBP> 160; Start 08/05/17 at 09:30 Miscellaneous Information 1 ea NOTE XX ; Start 08/05/17 at 10:30 Glucose (Glutose) 15 gm Q15M PRN PO DECREASED GLUCOSE; Start 08/05/17 at 10:30 Glucose (Glutose) 22.5 gm Q15M PRN PO DECREASED GLUCOSE; Start 08/05/17 at 10: 30 Dextrose (D50w Syringe) 25 ml Q15M PRN IV DECREASED GLUCOSE; Start 08/05/17 at 10:30 Dextrose (D50w Syringe) 50 ml Q15M PRN IV DECREASED GLUCOSE; Start 08/05/17 at 10:30 Glucagon (Glucagen) 1 mg Q15M PRN IM DECREASED GLUCOSE; Start 08/05/17 at 10:30 Glucose (Glutose) 15 gm Q15M PRN BUCCAL DECREASED GLUCOSE; Start 08/05/17 at 10 :30 MEI MONTILLA Aug 05, 2017 14:37
--- NOTE | 2017-08-05 20:42 | CONS ---
Date/Time of Note Date/Time of Note DATE: 08/05/17 TIME: 20:40 Assessment/Plan Assessment/Plan Chief Complaint/Hosp Course Assessment: NSTEMI - likely type 2 Accelerated hypertension Acute kidney injury on chronic kidney disease Diabetic ketoacidosis - improved on insulin drip, anion gap closed Insulin-dependent diabetes mellitus Dyslipidemia Leukocytosis - possibly reactive, rule out infection Recommendations: -continue aspirin and statin -add hydralazine 25mg TID -increase carvedilol to 25mg BID -continue amlodipine at 5mg BID -echocardiogram showed LVEF >70%, severe LVH -Lexiscan SPECT tomorrow Problems: Consultation Date/Type/Reason Admit Date/Time Aug 04, 2017 at 02:07 Initial Consult Date Type of Consultation: Cardiology 24 HR Interval Summary Free Text/Dictation Transferred out of ICU. Blood pressures still elevated. Detailed Summary Additional Comments 14 point review of systems without changes. Exam/Review of Systems Vital Signs Vitals Vital Signs Date Time Temp Pulse Resp B/P Pulse Ox O2 Delivery O2 Flow Rate FiO2 08/05/17 20:24 98.3 75 20 178/75 99 08/05/17 11:45 Room Air 08/05/17 02:59 2.0 27 Intake and Output 08/04/17 08/04/17 08/05/17 14:59 22:59 06:59 Intake Total 421.5 ml 707.5 ml Output Total 110 ml Balance 421.5 ml 597.5 ml Exam Constitutional: alert, well developed Psych: nl mood/affect, no complaints Head: atraumatic, normocephalic Eyes: nl conjunctiva ENMT: nl external ears & nose, nl nasal mucosa & septum Neck: non-tender, supple Respiratory: clear to auscultation, normal air movement Cardiovascular: regular rate and rhythm Gastrointestinal: non-tender, soft Musculoskeletal: nl extremities to inspection Extremities: No clubbing, No cyanosis, No edema Neurological: nl mental status, nl speech Skin: nl turgor Results Result Diagram: 08/05/17 0543 08/05/17 0543 Results 24 hrs Laboratory Tests Test 08/04/17 22:32 08/05/17 00:44 08/05/17 01:32 08/05/17 02:51 Bedside Glucose 173 112 110 138 Test 08/05/17 03:22 08/05/17 03:30 08/05/17 05:33 08/05/17 05:43 Bedside Glucose 141 194 Urine Color YELLOW Urine Clarity TURBID A Urine pH 5.0 Urine Specific [place] 1.015 Urine Ketones NEGATIVE Urine Nitrite NEGATIVE Urine Bilirubin NEGATIVE Urine Urobilinogen NEGATIVE Urine Leukocyte Esterase 3+ H Urine Microscopic RBC 60 H Urine Microscopic WBC > 182 H Urine Squamous Epithelial Cells MODERATE Urine Transitional Epithelial Cells FEW A Urine Bacteria MODERATE Urine Hemoglobin 1+ H Urine Random Creatinine 86.36 Urine Random Sodium 45 Urine Glucose 1+ H Urine Total Protein 190.0 H White Blood Count 16.0 H Red Blood Count 4.29 Hemoglobin 12.1 Hematocrit 34.9 L Mean Corpuscular Volume 81.4 L Mean Corpuscular Hemoglobin 28.2 L Mean Corpuscular Hemoglobin Concent 34.7 Red Cell Distribution Width 12.3 Platelet Count 410 Mean Platelet Volume 11.0 H Neutrophils % 72.3 Lymphocytes % 17.5 Monocytes % 7.1 Eosinophils % 1.7 Basophils % 0.7 Nucleated Red Blood Cells % 0.0 Neutrophils # 11.6 H Lymphocytes # 2.8 Monocytes # 1.1 H Eosinophils # 0.3 Basophils # 0.1 Nucleated Red Blood Cells # 0.0 Sodium Level 132 L Potassium Level 3.9 Chloride Level 106 Carbon Dioxide Level 20 L Anion Gap 10 Blood Urea Nitrogen 38 H Creatinine 1.78 H Glucose Level 208 Calcium Level 8.1 L Phosphorus Level 2.6 Magnesium Level 1.9 Troponin I 0.692 *H Test 08/05/17 06:12 08/05/17 07:40 08/05/17 09:09 08/05/17 10:45 Bedside Glucose 158 77 97 224 H Test 08/05/17 11:55 08/05/17 17:08 Bedside Glucose 301 H 136 Medications Medications Current Medications Ondansetron HCl (Zofran Inj) 4 mg Q6H PRN IV NAUSEA AND/OR VOMITING; Start 08/04/17 at 05:30 Acetaminophen (Tylenol Liquid) 650 mg Q6H PRN PO PAIN LEVEL 1-3 OR FEVER Last administered on 08/04/17 10:06; Admin Dose 650 MG; Start 08/04/17 at 05:30 Morphine Sulfate (morphine) 2 mg Q4H PRN IV PAIN LEVEL 7-10; Start 08/04/17 at 05:30 Famotidine (Pepcid) 20 mg DAILY PO Last administered on 08/05/17 08:08; Admin Dose 20 MG; Start 08/04/17 at 09:00 Heparin Sodium (Porcine) (Heparin (5000 Units/0.5 ml)) 5,000 unit Q8 SC Last administered on 08/05/17 16:21; Admin Dose 5,000 UNIT; Start 08/04/17 at 06:00 Aspirin (Halfprin) 81 mg DAILY PO Last administered on 08/05/17 08:07; Admin Dose 81 MG; Start 08/04/17 at 09:00 Hydralazine HCl (Apresoline) 10 mg Q4H PRN IV SBP > 160 Last administered on 16:11; Admin Dose 10 MG; Start 08/04/17 at 05:30 Atorvastatin Calcium 40 mg 40 mg DAILY PO Last administered on 08/05/17 08:08 ; Admin Dose 40 MG; Start 08/04/17 at 09:00 Ceftriaxone Sodium (Rocephin) 50 ml @ 100 mls/hr Q24H IVPB Last administered on 08/05/17 10:08; Admin Dose 100 MLS/HR; Start 08/04/17 at 10:00 Labetalol HCl (Labetalol) 10 mg Q4 PRN IV systolic bp>160 Last administered on 08/05/17 03:33; Admin Dose 10 MG; Start 08/04/17 at 18:00 Carvedilol (Coreg) 12.5 mg BID PO Last administered on 08/05/17 08:07; Admin Dose 12.5 MG; Start 08/04/17 at 21:00 Amlodipine Besylate (Norvasc) 10 mg DAILY PO Last administered on 08/05/17 06: 03; Admin Dose 10 MG; Start 08/05/17 at 06:00 Diagnostic Test (Pha) (Accu-Chek) 1 ea 02 XX ; Start 08/06/17 at 02:00 Insulin Glargine (Lantus) 17 unit DAILY@20 SC ; Start 08/05/17 at 20:00 Clonidine (Catapres) 0.1 mg TID PRN PO SBP> 160 Last administered on 08/05/17 17:05; Admin Dose 0.1 MG; Start 08/05/17 at 09:30 Miscellaneous Information 1 ea NOTE XX ; Start 08/05/17 at 10:30 Glucose (Glutose) 15 gm Q15M PRN PO DECREASED GLUCOSE; Start 08/05/17 at 10:30 Glucose (Glutose) 22.5 gm Q15M PRN PO DECREASED GLUCOSE; Start 08/05/17 at 10: 30 Dextrose (D50w Syringe) 25 ml Q15M PRN IV DECREASED GLUCOSE; Start 08/05/17 at 10:30 Dextrose (D50w Syringe) 50 ml Q15M PRN IV DECREASED GLUCOSE; Start 08/05/17 at 10:30 Glucagon (Glucagen) 1 mg Q15M PRN IM DECREASED GLUCOSE; Start 08/05/17 at 10:30 Glucose 15 gm 15 gm Q15M PRN BUCCAL DECREASED GLUCOSE; Start 08/05/17 at 10:30 Sodium Chloride (NS) 1,000 ml @ 100 mls/hr Q10H IV ; Start 08/06/17 at 00:00 Influenza Virus Vaccine (Fluzone) 0.5 ml ONCE ONCE IM* ; Start 08/06/17 at 20:00 ; Stop 08/06/17 at 20:01 CANDELARIO AVINA MD Aug 05, 2017 20:42
--- NOTE | 2017-08-05 22:30 | RADRPT ---
PROCEDURE: MRI Brain without contrast. CLINICAL INDICATION: Syncope. TECHNIQUE: An MRI of the brain was performed without contrast utilizing the following sequences: Sagittal T1 weighted, sagittal FLAIR, axial T1, axial FLAIR, axial T2 weighted, axial diffusion weig hted (EPI technique [id number]), axial ADC mapping. The images were reviewed on a high-resolution PACS workstation. COMPARISON: CT head 08/03/2017 FINDINGS: Diffusion weighted sequences demonstrate no evidence of acute lacunar or lobar infarction. There is no intracranial hemorrhage, extra-axial fluid collection, mass lesion, midline shift or hydrocephal ous. There is mild to moderate prominence of the cerebral sulci, lateral and third ventricles. Ther e is moderate patchy and confluent periventricular and subcortical T2 / FLAIR signal hyperintensity, likely related to chronic microangiopathic changes. The brainstem and cerebellum are normal in appe arance. The basal cisterns are patent.. Normal flow voids are visible the proximal intracranial art eries and dural sinuses, indicating patency. The midline structures are intact. There is near-complete opacification of the left sphenoid sinus with air-fluid level, suggesting acu te sinusitis. There is mild to moderate mucosal thickening in the posterior left maxillary sinus. Th ere is mild mucosal thickening of the bilateral ethmoid air cells. The mastoid air cells and middle ear cavities are normally aerated. The orbits, calvarium and extracranial soft tissues are normal i n appearance. IMPRESSION: 1. No acute intracranial abnormality. No intracranial hemorrhage, mass lesion, infarction or hydro cephalous. 2. Mild to moderate peripheral and central cerebral volume loss, within normal limits for age. 3. Moderate patchy and confluent white matter lesions, likely related to chronic microangiopathic c hanges. 4. Moderate to severe inflammatory changes of the left sphenoid sinus and left maxillary sinus with air-fluid level in the sphenoid sinus, suggesting acute sinusitis. RPTAT: HGAS .Casey Carpenter MD, Date Time Electronically viewed and signed by .Casey Carpenter MD, MD on 08/05/2017 22:30 .S/
[2017-08-06] VITALS (14 sets, daily range): BP systolic 128–191; BP diastolic 59–79; PULSE 65–83; RESP 18
[2017-08-06] MEDS: hydrALAzine 20 MG INJ IV PRN (00:35)
[2017-08-06] MEDS: SOD CHLORIDE 0.9% 1,000 ML IV SCH ×2 (00:44→10:42)
[2017-08-06] MEDS: ACCU-CHEK XX SCH (02:00)
[2017-08-06] MEDS ORDERED: hydrALAzine 20 MG INJ IV ONE (04:08)
[2017-08-06] MEDS: HEPARIN 5,000 UNIT/0.5 ML VIAL SC SCH ×3 (06:39→21:14)
--- NOTE | 2017-08-06 07:03 | PN ---
DATE: 08/05/2017 SUBJECTIVE: The patient remains in a serious condition in intensive care unit. No other acute even ts noted overnight. No hemoptysis, hematemesis or hematochezia. OBJECTIVE: VITAL SIGNS: Blood pressure 116/55, respirations 16, pulse 73, temperature 98.5. HEENT: Head is normocephalic. NECK: Supple. HEART: Regular rate. LUNGS: Show diminished breath sounds at the base. ABDOMEN: Soft, nontender to palpation. No rebound or guarding. EXTREMITIES: Negative for clubbing, cyanosis. Trace edema. DERMATOLOGIC: No rashes. MUSCULOSKELETAL: No joint effusions. NEUROLOGIC: No focal deficits. LABORATORY DATA: Shows sodium 132, potassium 3.9, chloride 106, BUN 38, creatinine 1.78, troponin 0 .62. White count , hemoglobin 10.1, platelet count is 410. Urinalysis shows a protein/creatin ine ratio of approximately 2.1 grams per gram of creatinine. Urinalysis shows pyuria, hematuria and proteinuria. Renal ultrasound shows unremarkable ultrasound of the kidneys. ASSESSMENT AND PLAN: 1. Nonoliguric acute kidney injury on top of chronic kidney disease with unknown baseline creatinin e. Etiology of acute kidney injury was secondary to hemodynamics, questionable tubular injury. The patient's renal function has improved over the last 24 hours with gentle hydration. The patient's urinalysis does show significant pyuria, hematuria and proteinuria. This can be in conjunction to a urinary tract infection. The possibility of an acute glomerulonephritis, vasculitis or interstitia l nephritis is less likely given clinical presentation and improvement of kidney function. The chantelle ent's renal ultrasound also shows no evidence of obstruction. Plan at this point is to continue cur rent treatment plan. We will continue supportive care, renally dose all medications, avoid nephroto xins. We will repeat a urinalysis and monitor closely. 2. Hyponatremia, etiology secondary to hypoglycemia in conjunction with acute kidney injury causing decreased free water urinary excretion. Sodium levels have improved once euglycemia was achieved. We will continue to monitor closely. 3. Mixed acid base disorder. The patient has a respiratory alkalosis and metabolic ketoacidosis. At this point, would continue current treatment plan. Continue to treat diabetic ketoacidosis. Con tinue insulin drip. Monitor closely. 4. Anemia. Monitor hemoglobin and hematocrit levels. 5. Mineral bone disorder. Monitor calcium and phosphorus levels. 6. Non-ST elevation myocardial infarction. Continue current medical management. Follow up with ca rdiology. The patient is pending possible stress test. 7. Diabetes with mild diabetic ketoacidosis. Continue current insulin regimen. Continue insulin d rip. 8. Hypertensive urgency. Blood pressure remains elevated, but improving. IV fluids were discontin ued. Continue current blood pressure regimen. Adjust medications as needed. Would defer angiotens in converting enzyme inhibitor, angiotensin receptor justice at this time. 9. Hypothyroidism. Continue Synthroid. Please note I spent over 35 minutes of critical care time with this patient. Dictated By: DENTON VILLA DO NR/NTS Conf#: [id number] DID#: [id number] CC: PAULINA CAZARES MD;*EndCC*
[2017-08-06] MEDS: INSULIN ASPART [NOVOLOG] 3 ML PEN SC SCH ×7 (07:55→22:42)
[2017-08-06] MEDS: ASPIRIN (EC) 81 MG TAB PO SCH (08:08)
[2017-08-06] MEDS: FAMOTIDINE 20 MG TAB PO SCH (08:08)
[2017-08-06] MEDS: ATORVASTATIN 40 MG TAB PO SCH (08:08)
[2017-08-06] MEDS: AMLODIPINE 10 MG TAB PO SCH ×2 (08:11→20:51)
[2017-08-06 08:59] LABS: BASOPHIL # 0.1 10^3/ul (0.0-0.1); BASOPHILS % 0.7 % (0.0-2.0); EOSINOPHILS # 0.1 10^3/ul (0.0-0.5); EOSINOPHILS % 0.9 % (0.0-7.0); HEMATOCRIT 34.9 % (37.0-47.0); LYMPHOCYTES # 1.4 10^3/ul (0.8-2.9); MEAN CORPUSCULAR HEMOGLOBIN 28.6 pg (29.0-33.0); MEAN CORPUSCULAR HGB CONC 34.4 g/dl (32.0-37.0); MEAN CORPUSCULAR VOLUME 83.1 fl (82.0-101.0); MEAN PLATELET VOLUME 11.6 fl (7.4-10.4); MONOCYTE # 0.7 10^3/ul (0.3-0.9); MONOCYTES % 5.9 % (0.0-11.0); NEUTROPHIL # 9.3 10^3/ul (1.6-7.5); PLATELET COUNT 405 10^3/UL (140-415); RED CELL DISTRIBUTION WIDTH 12.8 % (11.5-14.5); WHITE BLOOD COUNT 11.8 10^3/ul (4.8-10.8)
--- NOTE | 2017-08-06 09:32 | PN ---
DATE: 08/06/2017 SUBJECTIVE: The patient was transferred from intensive care unit to telemetry. No other events not ed overnight. OBJECTIVE: VITAL SIGNS: Blood pressure 84/77, respiration 18, pulse 80, temperature 98.4. HEENT: Head is normocephalic. NECK: Supple. HEART: Regular rate. LUNGS: Show diminished breath sounds at base. ABDOMEN: Soft, nontender to palpation. No rebound or guarding. EXTREMITIES: Negative for clubbing, cyanosis, or edema. DERMATOLOGIC: No rashes. MUSCULOSKELETAL: No joint effusions. NEUROLOGIC: No change in exam. MEDICATIONS: The patient's medications have been reviewed. LABORATORY DATA: Pending. ASSESSMENT AND PLAN: 1. Nonoliguric acute kidney injury on top of chronic kidney disease with unknown baseline creatinin e. Etiology of acute kidney injury is secondary to hemodynamics. The patient's renal function has been improving with gentle IV hydration. At this point, continue current treatment plan, supportive care, renally dose all meds, would decrease rate of IV fluids as the patient is currently hypotensi ve. 2. Hyponatremia secondary to hyperglycemia in conjunction with acute kidney injury. The patient's sodium levels are improving. Continue to monitor. 3. Mixed acid base disorder. The patient had initial respiratory alkalosis and metabolic ketoacido sis. We will continue to monitor. 4. Anemia. Monitor hemoglobin and hematocrit levels. 5. Mineral bone disorder, monitor calcium and phosphorus levels. 6. Non-ST elevation myocardial infarction. The patient is undergoing medical management, pending c ardiac catheterization. 7. Diabetes. Continue current insulin regimen. 8. Hypertensive urgency. Etiology in part due to underlying IV fluids. Would recommend to discont inue IV fluids, continue current blood pressure regimen. Defer BRENT inhibitor at this time. 9. Hypothyroidism. Continue Synthroid. Dictated By: DENTON MCCORMACK/CLARENCE Conf#: [id number] DID#: [id number]
[2017-08-06 09:43] LABS: CALCIUM 7.6 mg/dl (8.4-10.2); CREATININE 1.5 mg/dl (0.44-1.00); MAGNESIUM 1.9 mg/dl (1.7-2.5); PHOSPHORUS 3.5 mg/dl (2.5-4.9); POTASSIUM 4.3 mmol/L (3.5-5.1)
[2017-08-06] MEDS: LEVOFLOXACIN 500MG/D5W (PMX) 100 ML IVPB SCH (10:41)
[2017-08-06] MEDS ORDERED: REGADENOSON 0.4 MG/5 ML SYG ONE (12:47)
--- NOTE | 2017-08-06 15:13 | PN ---
Date/Time of Note Date/Time of Note DATE: 08/06/17 TIME: 15:12 Assessment/Plan VTE Prophylaxis VTE Prophylaxis Intervention: SCD's Lines/Catheters IV Catheter Type (from Nrs): Peripheral IV Urinary Cath still in place: No Assessment/Plan Chief Complaint/Hosp Course Subjective 12.7 patient feeling much better 12.8 no acute issues currently Objective Physical exam General: Patient is laying in bed and answers questions appropriately Mentation: Patient is alert and oriented 4, Head: Normocephalic atraumatic Eyes: EOMI, pupils reactive to light Neck: Supple, nontender, midline Respiratory: Clear to auscultation bilaterally Cardiovascular: regular rate, no obvious murmurs Gastrointestinal: non-tender to palpation, bowel sounds heard. Neurological: Moves all extremities spontaneously Skin: No new skin lesions Assessment and plan Non-ST elevated [place] -Cardiology consultation appreciated -Downtrending, no chest pain during this event -Type II according to cardiology -Recommendations appreciated -lexiscan today Uncontrolled diabetes mellitus -Near DKA on arrival -Downgraded from ICU after a day of insulin drip -Patient on 90 units of Lantus and glipizide at home, not optimal regimen -We will start Lantus with mealtime insulin -Hemoglobin A1c 12.5% Syncopal episode, frequent falls -Likely secondary to extreme hyperglycemia and near DKA compounded with sinusitis -MRI noted sinusitis -CT noted -Carotid Doppler noted, no acute issues Sinusitis -mod-severe per MRI -changed to levaquin Hypertensive urgency -Patient's blood pressure is difficult to control -Patient on clonidine 0.3 mg 3 times daily at home,will hold, on coreg and amlodipine here in the hospital Electrolyte derangement -Resolving, monitor History of chronic kidney disease -Nephrology following Hypothyroidism -Monitor Disposition -Optimize insulin control -PT OT -stress test today Problems: Exam/Review of Systems Vital Signs Vitals Vital Signs Date Time Temp Pulse Resp B/P Pulse Ox O2 Delivery O2 Flow Rate FiO2 08/06/17 12:57 68 08/06/17 11:14 98.2 18 132/61 97 08/06/17 06:16 Room Air 08/05/17 02:59 2.0 27 Intake and Output 08/05/17 08/05/17 08/06/17 15:00 23:00 07:00 Intake Total 50 ml 625 ml Balance 50 ml 625 ml Results Result Diagram: 08/06/17 0747 08/06/17 0747 Results 24 hrs Laboratory Tests Test 08/05/17 17:08 08/05/17 21:11 08/06/17 07:44 08/06/17 07:47 Bedside Glucose 136 170 287 H White Blood Count 11.8 #H Red Blood Count 4.20 Hemoglobin 12.0 Hematocrit 34.9 L Mean Corpuscular Volume 83.1 Mean Corpuscular Hemoglobin 28.6 L Mean Corpuscular Hemoglobin Concent 34.4 Red Cell Distribution Width 12.8 Platelet Count 405 Mean Platelet Volume 11.6 H Neutrophils % 79.0 H Lymphocytes % 12.0 L Monocytes % 5.9 Eosinophils % 0.9 Basophils % 0.7 Nucleated Red Blood Cells % 0.0 Neutrophils # 9.3 H Lymphocytes # 1.4 Monocytes # 0.7 Eosinophils # 0.1 Basophils # 0.1 Nucleated Red Blood Cells # 0.0 Sodium Level 132 L Potassium Level 4.3 Chloride Level 107 Carbon Dioxide Level 15 L Anion Gap 14 Blood Urea Nitrogen 35 H Creatinine 1.50 H Glucose Level 306 H Calcium Level 7.6 L Phosphorus Level 3.5 Magnesium Level 1.9 Test 08/06/17 12:02 Bedside Glucose 229 H Medications Medications Current Medications Ondansetron HCl (Zofran Inj) 4 mg Q6H PRN IV NAUSEA AND/OR VOMITING; Start 08/04/17 at 05:30 Acetaminophen (Tylenol Liquid) 650 mg Q6H PRN PO PAIN LEVEL 1-3 OR FEVER Last administered on 08/04/17 10:06; Admin Dose 650 MG; Start 08/04/17 at 05:30 Morphine Sulfate (morphine) 2 mg Q4H PRN IV PAIN LEVEL 7-10; Start 08/04/17 at 05:30 Famotidine (Pepcid) 20 mg DAILY PO Last administered on 08/06/17 08:08; Admin Dose 20 MG; Start 08/04/17 at 09:00 Heparin Sodium (Porcine) (Heparin (5000 Units/0.5 ml)) 5,000 unit Q8 SC Last administered on 08/06/17 14:46; Admin Dose 5,000 UNIT; Start 08/04/17 at 06:00 Aspirin (Halfprin) 81 mg DAILY PO Last administered on 08/06/17 08:08; Admin Dose 81 MG; Start 08/04/17 at 09:00 Hydralazine HCl (Apresoline) 10 mg Q4H PRN IV SBP > 160 Last administered on 00:35; Admin Dose 10 MG; Start 08/04/17 at 05:30 Atorvastatin Calcium (Lipitor) 40 mg DAILY PO Last administered on 08/06/17 08 :08; Admin Dose 40 MG; Start 08/04/17 at 09:00 Labetalol HCl (Labetalol) 10 mg Q4 PRN IV systolic bp>160 Last administered on 08/05/17 03:33; Admin Dose 10 MG; Start 08/04/17 at 18:00 Diagnostic Test (Pha) (Accu-Chek) 1 ea 02 XX ; Start 08/06/17 at 02:00 Clonidine (Catapres) 0.1 mg TID PRN PO SBP> 160 Last administered on 08/06/17 14:38; Admin Dose 0.1 MG; Start 08/05/17 at 09:30 Miscellaneous Information 1 ea NOTE XX ; Start 08/05/17 at 10:30 Glucose (Glutose) 15 gm Q15M PRN PO DECREASED GLUCOSE; Start 08/05/17 at 10:30 Glucose (Glutose) 22.5 gm Q15M PRN PO DECREASED GLUCOSE; Start 08/05/17 at 10: 30 Dextrose (D50w Syringe) 25 ml Q15M PRN IV DECREASED GLUCOSE; Start 08/05/17 at 10:30 Dextrose (D50w Syringe) 50 ml Q15M PRN IV DECREASED GLUCOSE; Start 08/05/17 at 10:30 Glucagon (Glucagen) 1 mg Q15M PRN IM DECREASED GLUCOSE; Start 08/05/17 at 10:30 Glucose 15 gm 15 gm Q15M PRN BUCCAL DECREASED GLUCOSE; Start 08/05/17 at 10:30 Sodium Chloride (NS) 1,000 ml @ 50 mls/hr Q20H IV Last administered on 10:42; Admin Dose 50 MLS/HR; Start 08/06/17 at 00:00 Influenza Virus Vaccine (Fluzone) 0.5 ml ONCE ONCE IM* ; Start 08/06/17 at 20:00 ; Stop 08/06/17 at 20:01 Amlodipine Besylate (Norvasc) 5 mg BID PO Last administered on 08/06/17 08:11 ; Admin Dose 5 MG; Start 08/06/17 at 09:00 Carvedilol (Coreg) 25 mg BID PO Last administered on 08/06/17 08:09; Admin Dose 25 MG; Start 08/05/17 at 21:00 Insulin Glargine (Lantus) 10 unit DAILY@20 SC ; Start 08/06/17 at 20:00 Hydralazine HCl 25 mg 25 mg TID PO Last administered on 08/06/17 14:37; Admin Dose 25 MG; Start 08/05/17 at 21:00 Levofloxacin/ Dextrose (Levaquin 500mg/ D5W 100 ml (Pmx)) 100 ml @ 100 mls/hr Q24H IVPB Last administered on 08/06/17 10:41; Admin Dose 100 MLS/HR; Start 08/06/17 at 11:00 MEI MONTILLA Aug 06, 2017 15:13
--- NOTE | 2017-08-06 15:28 | RADRPT ---
PROCEDURE: Lexiscan myocardial perfusion study CLINICAL INDICATION: 77 -year-old patient complaining of chest pain. TECHNIQUE: Lexiscan 0.4 mg intravenously separate acquisition gated myocardial perfusion SPECT usi ng Tc 99m Myoview approximately 30.0 mCi intravenously at stress and Tc-99m Myoview, approximately 1 0.0 mCi intravenously at rest was performed using the rest/stress sequence. Poststress Myoview SPEC T images were obtained in the supine position. COMPARISON: No prior studies. FINDINGS: Perfusion images reveal no evidence of perfusion defects. Lexiscan post stress gated SPECT images demonstrate no wall motion abnormalities. IMPRESSION: 1. No evidence of perfusion defects. 2. No wall motion abnormalities. 3. The left ventricle ejection fraction at stress is 60%. A call report was made to Dr. Gates at 03:26 p.m. on August 06, 2017. RPTAT: HH .Tiera William MD, Date Time Electronically viewed and signed by .Tiera William MD, on 08/06/2017 15:28 .L/
[2017-08-06 15:31] LABS: MICROALBUMIN 93.2 mg/dL
--- NOTE | 2017-08-06 17:18 | CONS ---
Date/Time of Note Date/Time of Note DATE: 08/06/17 TIME: 17:16 Assessment/Plan Assessment/Plan Chief Complaint/Hosp Course Assessment: NSTEMI - likely type 2, Lexiscan SPECT negative Accelerated hypertension Acute kidney injury on chronic kidney disease - renal function improving Diabetic ketoacidosis - resolved Insulin-dependent diabetes mellitus Dyslipidemia Leukocytosis - possibly reactive, rule out infection Recommendations: -increase hydralazine to 50mg TID -continue carvedilol 25mg BID and amlodipine 5mg BID -continue aspirin and statin -echocardiogram showed LVEF >70%, severe LVH -Lexiscan SPECT negative -no additional cardiac work up at this time Problems: Consultation Date/Type/Reason Admit Date/Time Aug 04, 2017 at 02:07 Type of Consultation: Cardiology 24 HR Interval Summary Free Text/Dictation Lexiscan SPECT performed today, negative for ischemia. Blood pressures improved, but still elevated. Detailed Summary Additional Comments 14 point review of systems without changes. Exam/Review of Systems Vital Signs Vitals Vital Signs Date Time Temp Pulse Resp B/P Pulse Ox O2 Delivery O2 Flow Rate FiO2 08/06/17 16:14 77 08/06/17 16:06 97.5 18 152/67 97 08/06/17 06:16 Room Air 08/05/17 02:59 2.0 27 Intake and Output 08/05/17 08/05/17 08/06/17 15:00 23:00 07:00 Intake Total 50 ml 625 ml Balance 50 ml 625 ml Exam Constitutional: alert, well developed Psych: nl mood/affect, no complaints Head: atraumatic, normocephalic Eyes: nl conjunctiva ENMT: nl external ears & nose, nl nasal mucosa & septum Neck: non-tender, supple Respiratory: clear to auscultation, normal air movement Cardiovascular: regular rate and rhythm Gastrointestinal: non-tender, soft Musculoskeletal: nl extremities to inspection Extremities: No clubbing, No cyanosis, No edema Neurological: nl mental status, nl speech Skin: nl turgor Results Result Diagram: 08/06/17 0747 08/06/17 0747 Results 24 hrs Laboratory Tests Test 08/05/17 21:11 08/06/17 07:44 08/06/17 07:47 08/06/17 12:02 Bedside Glucose 170 287 H 229 H White Blood Count 11.8 #H Red Blood Count 4.20 Hemoglobin 12.0 Hematocrit 34.9 L Mean Corpuscular Volume 83.1 Mean Corpuscular Hemoglobin 28.6 L Mean Corpuscular Hemoglobin Concent 34.4 Red Cell Distribution Width 12.8 Platelet Count 405 Mean Platelet Volume 11.6 H Neutrophils % 79.0 H Lymphocytes % 12.0 L Monocytes % 5.9 Eosinophils % 0.9 Basophils % 0.7 Nucleated Red Blood Cells % 0.0 Neutrophils # 9.3 H Lymphocytes # 1.4 Monocytes # 0.7 Eosinophils # 0.1 Basophils # 0.1 Nucleated Red Blood Cells # 0.0 Sodium Level 132 L Potassium Level 4.3 Chloride Level 107 Carbon Dioxide Level 15 L Anion Gap 14 Blood Urea Nitrogen 35 H Creatinine 1.50 H Glucose Level 306 H Calcium Level 7.6 L Phosphorus Level 3.5 Magnesium Level 1.9 Test 08/06/17 17:05 Bedside Glucose 318 H Medications Medications Current Medications Ondansetron HCl (Zofran Inj) 4 mg Q6H PRN IV NAUSEA AND/OR VOMITING; Start 08/04/17 at 05:30 Acetaminophen (Tylenol Liquid) 650 mg Q6H PRN PO PAIN LEVEL 1-3 OR FEVER Last administered on 08/04/17 10:06; Admin Dose 650 MG; Start 08/04/17 at 05:30 Morphine Sulfate (morphine) 2 mg Q4H PRN IV PAIN LEVEL 7-10; Start 08/04/17 at 05:30 Famotidine (Pepcid) 20 mg DAILY PO Last administered on 08/06/17 08:08; Admin Dose 20 MG; Start 08/04/17 at 09:00 Heparin Sodium (Porcine) (Heparin (5000 Units/0.5 ml)) 5,000 unit Q8 SC Last administered on 08/06/17 14:46; Admin Dose 5,000 UNIT; Start 08/04/17 at 06:00 Aspirin (Halfprin) 81 mg DAILY PO Last administered on 08/06/17 08:08; Admin Dose 81 MG; Start 08/04/17 at 09:00 Hydralazine HCl (Apresoline) 10 mg Q4H PRN IV SBP > 160 Last administered on 00:35; Admin Dose 10 MG; Start 08/04/17 at 05:30 Atorvastatin Calcium (Lipitor) 40 mg DAILY PO Last administered on 08/06/17 08 :08; Admin Dose 40 MG; Start 08/04/17 at 09:00 Labetalol HCl (Labetalol) 10 mg Q4 PRN IV systolic bp>160 Last administered on 08/05/17 03:33; Admin Dose 10 MG; Start 08/04/17 at 18:00 Diagnostic Test (Pha) (Accu-Chek) 1 ea 02 XX ; Start 08/06/17 at 02:00 Clonidine (Catapres) 0.1 mg TID PRN PO SBP> 160 Last administered on 08/06/17 14:38; Admin Dose 0.1 MG; Start 08/05/17 at 09:30 Miscellaneous Information 1 ea NOTE XX ; Start 08/05/17 at 10:30 Glucose (Glutose) 15 gm Q15M PRN PO DECREASED GLUCOSE; Start 08/05/17 at 10:30 Glucose (Glutose) 22.5 gm Q15M PRN PO DECREASED GLUCOSE; Start 08/05/17 at 10: 30 Dextrose (D50w Syringe) 25 ml Q15M PRN IV DECREASED GLUCOSE; Start 08/05/17 at 10:30 Dextrose (D50w Syringe) 50 ml Q15M PRN IV DECREASED GLUCOSE; Start 08/05/17 at 10:30 Glucagon (Glucagen) 1 mg Q15M PRN IM DECREASED GLUCOSE; Start 08/05/17 at 10:30 Glucose 15 gm 15 gm Q15M PRN BUCCAL DECREASED GLUCOSE; Start 08/05/17 at 10:30 Sodium Chloride (NS) 1,000 ml @ 50 mls/hr Q20H IV Last administered on 10:42; Admin Dose 50 MLS/HR; Start 08/06/17 at 00:00 Influenza Virus Vaccine (Fluzone) 0.5 ml ONCE ONCE IM* ; Start 08/06/17 at 20:00 ; Stop 08/06/17 at 20:01 Amlodipine Besylate (Norvasc) 5 mg BID PO Last administered on 08/06/17 08:11 ; Admin Dose 5 MG; Start 08/06/17 at 09:00 Carvedilol (Coreg) 25 mg BID PO Last administered on 08/06/17 08:09; Admin Dose 25 MG; Start 08/05/17 at 21:00 Insulin Glargine (Lantus) 10 unit DAILY@20 SC ; Start 08/06/17 at 20:00 Hydralazine HCl 25 mg 25 mg TID PO Last administered on 08/06/17 14:37; Admin Dose 25 MG; Start 08/05/17 at 21:00 Levofloxacin/ Dextrose (Levaquin 500mg/ D5W 100 ml (Pmx)) 100 ml @ 100 mls/hr Q24H IVPB Last administered on 08/06/17 10:41; Admin Dose 100 MLS/HR; Start 08/06/17 at 11:00 CANDELARIO AVINA MD Aug 06, 2017 17:18
[2017-08-06] MEDS ORDERED: INSULIN GLARGINE [LANtus] 3 ML PEN SC SCH (20:00)
[2017-08-06] MEDS ORDERED: INFLUENZA VIRUS VACCINE 0.5 ML SYG IM* ONE (20:00)
[2017-08-07] VITALS (11 sets, daily range): BP systolic 119–186; BP diastolic 63–78; PULSE 63–75; RESP 18–20
[2017-08-07] MEDS: ACCU-CHEK XX SCH (01:48)
--- NOTE | 2017-08-07 03:27 | CARRPT ---
DATE OF PROCEDURE: 08/06/2017. PROCEDURE: Lexiscan stress SPECT. INDICATION: Elevated troponin. FINDINGS: Baseline heart rate 67 beats per minute. Peak stress heart rate 80 beats per minute. Baseline blood pressure 186/79. Peak stress blood pressure 150/65. Baseline EKG normal sinus rhythm with left ventricular hypertrophy. Stress EKG without ischemic ST segment changes, isolated PVC noted. CONCLUSIONS: Normal EKG portion of Lexiscan stress test. Imaging results to be reported separately. Dictated By: CANDELARIO AVINA MD SC/NTS Conf#: [id number] DID#: [id number] CC: PAULINA CAZARES MD;*EndCC* MTDD
[2017-08-07] MEDS: HEPARIN 5,000 UNIT/0.5 ML VIAL SC SCH ×3 (06:30→21:59)
[2017-08-07] MEDS: SOD CHLORIDE 0.9% 1,000 ML IV SCH (06:33)
[2017-08-07] MEDS: INSULIN ASPART [NOVOLOG] 3 ML PEN SC SCH ×7 (08:03→20:25)
[2017-08-07] MEDS: AMLODIPINE 10 MG TAB PO SCH ×2 (08:13→20:18)
[2017-08-07] MEDS: ASPIRIN (EC) 81 MG TAB PO SCH (08:13)
[2017-08-07] MEDS: ATORVASTATIN 40 MG TAB PO SCH (08:13)
[2017-08-07] MEDS: FAMOTIDINE 20 MG TAB PO SCH (08:13)
[2017-08-07 08:47] LABS: CALCIUM 8.4 mg/dl (8.4-10.2); CREATININE 1.7 mg/dl (0.44-1.00); PHOSPHORUS 3.7 mg/dl (2.5-4.9); POTASSIUM 4.4 mmol/L (3.5-5.1)
--- NOTE | 2017-08-07 09:31 | CONS ---
Date/Time of Note Date/Time of Note DATE: 08/07/17 TIME: 09:29 Consult Date/Type/Reason Admit Date/Time Aug 04, 2017 at 02:07 Initial Consult Date Type of Consultation: nephro Subjective pt. seen and examined panchito matthews. pe: HEENT: Head is normocephalic. NECK: Supple. HEART: Regular rate. LUNGS: Show diminished breath sounds at base. ABDOMEN: Soft, nontender to palpation. No rebound or guarding. EXTREMITIES: Negative for clubbing, cyanosis, or edema. DERMATOLOGIC: No rashes. MUSCULOSKELETAL: No joint effusions. NEUROLOGIC: No change in exam. Objective Vital Signs Date Time Temp Pulse Resp B/P Pulse Ox O2 Delivery O2 Flow Rate FiO2 08/07/17 08:29 73 08/07/17 07:35 98.7 20 186/78 98 08/06/17 22:00 Room Air 08/05/17 02:59 2.0 27 Intake and Output 08/06/17 08/06/17 08/07/17 14:59 22:59 06:59 Intake Total 550 ml 1000 ml Output Total 1000 ml 850 ml Balance -450 ml 150 ml Results/Medications Result Diagram: 08/06/17 0747 08/07/17 0716 Results 24 hrs Laboratory Tests Test 08/06/17 12:02 08/06/17 17:05 08/06/17 18:25 08/06/17 22:08 Bedside Glucose 229 H 318 H 322 H 294 H Test 08/07/17 01:47 08/07/17 07:16 08/07/17 07:59 Bedside Glucose 249 H 228 H Sodium Level 133 L Potassium Level 4.4 Chloride Level 106 Carbon Dioxide Level 20 L Anion Gap 11 Blood Urea Nitrogen 34 H Creatinine 1.70 H Glucose Level 226 H Calcium Level 8.4 Phosphorus Level 3.7 Magnesium Level 2.0 Medications Current Medications Ondansetron HCl (Zofran Inj) 4 mg Q6H PRN IV NAUSEA AND/OR VOMITING Last administered on 08/06/17 18:21; Admin Dose 4 MG; Start 08/04/17 at 05:30 Acetaminophen (Tylenol Liquid) 650 mg Q6H PRN PO PAIN LEVEL 1-3 OR FEVER Last administered on 08/04/17 10:06; Admin Dose 650 MG; Start 08/04/17 at 05:30 Morphine Sulfate (morphine) 2 mg Q4H PRN IV PAIN LEVEL 7-10; Start 08/04/17 at 05:30 Famotidine (Pepcid) 20 mg DAILY PO Last administered on 08/07/17 08:13; Admin Dose 20 MG; Start 08/04/17 at 09:00 Heparin Sodium (Porcine) (Heparin (5000 Units/0.5 ml)) 5,000 unit Q8 SC Last administered on 08/07/17 06:30; Admin Dose 5,000 UNIT; Start 08/04/17 at 06:00 Aspirin (Halfprin) 81 mg DAILY PO Last administered on 08/07/17 08:13; Admin Dose 81 MG; Start 08/04/17 at 09:00 Hydralazine HCl (Apresoline) 10 mg Q4H PRN IV SBP > 160 Last administered on 00:35; Admin Dose 10 MG; Start 08/04/17 at 05:30 Atorvastatin Calcium (Lipitor) 40 mg DAILY PO Last administered on 08/07/17 08 :13; Admin Dose 40 MG; Start 08/04/17 at 09:00 Labetalol HCl (Labetalol) 10 mg Q4 PRN IV systolic bp>160 Last administered on 08/05/17 03:33; Admin Dose 10 MG; Start 08/04/17 at 18:00 Diagnostic Test (Pha) (Accu-Chek) 1 ea 02 XX ; Start 08/06/17 at 02:00 Clonidine (Catapres) 0.1 mg TID PRN PO SBP> 160 Last administered on 08/06/17 14:38; Admin Dose 0.1 MG; Start 08/05/17 at 09:30 Miscellaneous Information 1 ea NOTE XX ; Start 08/05/17 at 10:30 Glucose (Glutose) 15 gm Q15M PRN PO DECREASED GLUCOSE; Start 08/05/17 at 10:30 Glucose (Glutose) 22.5 gm Q15M PRN PO DECREASED GLUCOSE; Start 08/05/17 at 10: 30 Dextrose (D50w Syringe) 25 ml Q15M PRN IV DECREASED GLUCOSE; Start 08/05/17 at 10:30 Dextrose (D50w Syringe) 50 ml Q15M PRN IV DECREASED GLUCOSE; Start 08/05/17 at 10:30 Glucagon (Glucagen) 1 mg Q15M PRN IM DECREASED GLUCOSE; Start 08/05/17 at 10:30 Glucose 15 gm 15 gm Q15M PRN BUCCAL DECREASED GLUCOSE; Start 08/05/17 at 10:30 Sodium Chloride (NS) 1,000 ml @ 50 mls/hr Q20H IV Last administered on 06:33; Admin Dose 50 MLS/HR; Start 08/06/17 at 00:00 Amlodipine Besylate (Norvasc) 5 mg BID PO Last administered on 08/07/17 08:13 ; Admin Dose 5 MG; Start 08/06/17 at 09:00 Carvedilol (Coreg) 25 mg BID PO Last administered on 08/07/17 08:13; Admin Dose 25 MG; Start 08/05/17 at 21:00 Insulin Glargine 10 unit 10 unit DAILY@20 SC Last administered on 08/06/17 22: 40; Admin Dose 10 UNIT; Start 08/06/17 at 20:00 Levofloxacin/ Dextrose (Levaquin 500mg/ D5W 100 ml (Pmx)) 100 ml @ 100 mls/hr Q24H IVPB Last administered on 08/06/17 10:41; Admin Dose 100 MLS/HR; Start 08/06/17 at 11:00 Hydralazine HCl (Apresoline) 50 mg TID PO Last administered on 08/07/17 08:13 ; Admin Dose 50 MG; Start 08/06/17 at 21:00 Assessment/Plan Chief Complaint/Hosp Course 1. Nonoliguric acute kidney injury on top of chronic kidney disease with unknown baseline creatinine. Etiology of acute kidney injury is secondary to hemodynamics. The patient's renal function has been improving with gentle IV hydration. At this point, continue current treatment plan, supportive care, renally dose all meds, would decrease rate of IV fluids as the patient is currently hypotensive. 2. Hyponatremia secondary to hyperglycemia in conjunction with acute kidney injury. The patient's sodium levels are improving. Continue to monitor. 3. Mixed acid base disorder. The patient had initial respiratory alkalosis and metabolic ketoacidosis. We will continue to monitor. 4. Anemia. Monitor hemoglobin and hematocrit levels. 5. Mineral bone disorder, monitor calcium and phosphorus levels. 6. Non-ST elevation myocardial infarction. The patient is undergoing medical management, pending cardiac catheterization. 7. Diabetes. Continue current insulin regimen. 8. Hypertensive urgency. Etiology in part due to underlying IV fluids. Would recommend to discontinue IV fluids, continue current blood pressure regimen. Defer BRENT inhibitor at this time. 9. Hypothyroidism. Continue Synthroid. Problems: AMISH VINCENT MD Aug 07, 2017 09:31
[2017-08-07] MEDS: LEVOFLOXACIN 500MG/D5W (PMX) 100 ML IVPB SCH (11:15)
--- NOTE | 2017-08-07 14:34 | PN ---
Date/Time of Note Date/Time of Note DATE: 08/07/17 TIME: 14:32 Assessment/Plan VTE Prophylaxis VTE Prophylaxis Intervention: SCD's Lines/Catheters IV Catheter Type (from Nrs): Peripheral IV Urinary Cath still in place: No Assessment/Plan Chief Complaint/Hosp Course Subjective 12.7 patient feeling much better 12.8 no acute issues currently 12.9 no acute complaints Objective Physical exam General: Patient is laying in bed and answers questions appropriately Mentation: Patient is alert and oriented 4, Head: Normocephalic atraumatic Eyes: EOMI, pupils reactive to light Neck: Supple, nontender, midline Respiratory: Clear to auscultation bilaterally Cardiovascular: regular rate, no obvious murmurs Gastrointestinal: non-tender to palpation, bowel sounds heard. Neurological: Moves all extremities spontaneously Skin: No new skin lesions Assessment and plan Non-ST elevated SC -Cardiology consultation appreciated -Downtrending, no chest pain during this event -Type II according to cardiology -Recommendations appreciated -lexiscan does not show acute any reversible defect Uncontrolled diabetes mellitus -Near DKA on arrival -Downgraded from ICU after a day of insulin drip -Patient on 90 units of Lantus and glipizide at home, not optimal regimen -We will start Lantus with mealtime insulin, adjust dose as needed -Hemoglobin A1c 12.5% Syncopal episode, frequent falls -Likely secondary to extreme hyperglycemia and near DKA compounded with sinusitis -MRI noted sinusitis -CT noted -Carotid Doppler noted, no acute issues Sinusitis -mod-severe per MRI -changed to levaquin Hypertensive urgency -Patient's blood pressure is difficult to control -Patient on clonidine 0.3 mg 3 times daily at home,will hold, on coreg and amlodipine here in the hospital -stopping fluids per nephrology recs Electrolyte derangement -Resolving, monitor History of chronic kidney disease -Nephrology following -patient likely at baseline Hypothyroidism -Monitor Disposition -Optimize insulin control -PT OT -dispo when BP more controlled Problems: Exam/Review of Systems Vital Signs Vitals Vital Signs Date Time Temp Pulse Resp B/P Pulse Ox O2 Delivery O2 Flow Rate FiO2 08/07/17 12:21 65 08/07/17 11:37 97.7 20 145/66 98 08/06/17 22:00 Room Air 08/05/17 02:59 2.0 27 Intake and Output 08/06/17 08/06/17 08/07/17 15:00 23:00 07:00 Intake Total 550 ml 1000 ml Output Total 1000 ml 850 ml Balance -450 ml 150 ml Results Result Diagram: 08/06/17 0747 08/07/17 0716 Results 24 hrs Laboratory Tests Test 08/06/17 17:05 08/06/17 18:25 08/06/17 22:08 08/07/17 01:47 Bedside Glucose 318 H 322 H 294 H 249 H Test 08/07/17 07:16 08/07/17 07:59 08/07/17 11:45 Sodium Level 133 L Potassium Level 4.4 Chloride Level 106 Carbon Dioxide Level 20 L Anion Gap 11 Blood Urea Nitrogen 34 H Creatinine 1.70 H Glucose Level 226 H Calcium Level 8.4 Phosphorus Level 3.7 Magnesium Level 2.0 Bedside Glucose 228 H 280 H Medications Medications Current Medications Ondansetron HCl (Zofran Inj) 4 mg Q6H PRN IV NAUSEA AND/OR VOMITING Last administered on 08/06/17 18:21; Admin Dose 4 MG; Start 08/04/17 at 05:30 Acetaminophen (Tylenol Liquid) 650 mg Q6H PRN PO PAIN LEVEL 1-3 OR FEVER Last administered on 08/04/17 10:06; Admin Dose 650 MG; Start 08/04/17 at 05:30 Morphine Sulfate (morphine) 2 mg Q4H PRN IV PAIN LEVEL 7-10; Start 08/04/17 at 05:30 Famotidine (Pepcid) 20 mg DAILY PO Last administered on 08/07/17 08:13; Admin Dose 20 MG; Start 08/04/17 at 09:00 Heparin Sodium (Porcine) (Heparin (5000 Units/0.5 ml)) 5,000 unit Q8 SC Last administered on 08/07/17 13:58; Admin Dose 5,000 UNIT; Start 08/04/17 at 06:00 Aspirin (Halfprin) 81 mg DAILY PO Last administered on 08/07/17 08:13; Admin Dose 81 MG; Start 08/04/17 at 09:00 Hydralazine HCl (Apresoline) 10 mg Q4H PRN IV SBP > 160 Last administered on 00:35; Admin Dose 10 MG; Start 08/04/17 at 05:30 Atorvastatin Calcium (Lipitor) 40 mg DAILY PO Last administered on 08/07/17 08 :13; Admin Dose 40 MG; Start 08/04/17 at 09:00 Labetalol HCl (Labetalol) 10 mg Q4 PRN IV systolic bp>160 Last administered on 08/05/17 03:33; Admin Dose 10 MG; Start 08/04/17 at 18:00 Diagnostic Test (Pha) (Accu-Chek) 1 ea 02 XX ; Start 08/06/17 at 02:00 Clonidine (Catapres) 0.1 mg TID PRN PO SBP> 160 Last administered on 08/06/17 14:38; Admin Dose 0.1 MG; Start 08/05/17 at 09:30 Miscellaneous Information 1 ea NOTE XX ; Start 08/05/17 at 10:30 Glucose (Glutose) 15 gm Q15M PRN PO DECREASED GLUCOSE; Start 08/05/17 at 10:30 Glucose (Glutose) 22.5 gm Q15M PRN PO DECREASED GLUCOSE; Start 08/05/17 at 10: 30 Dextrose (D50w Syringe) 25 ml Q15M PRN IV DECREASED GLUCOSE; Start 08/05/17 at 10:30 Dextrose (D50w Syringe) 50 ml Q15M PRN IV DECREASED GLUCOSE; Start 08/05/17 at 10:30 Glucagon (Glucagen) 1 mg Q15M PRN IM DECREASED GLUCOSE; Start 08/05/17 at 10:30 Glucose 15 gm 15 gm Q15M PRN BUCCAL DECREASED GLUCOSE; Start 08/05/17 at 10:30 Sodium Chloride (NS) 1,000 ml @ 50 mls/hr Q20H IV Last administered on 06:33; Admin Dose 50 MLS/HR; Start 08/06/17 at 00:00 Amlodipine Besylate (Norvasc) 5 mg BID PO Last administered on 08/07/17 08:13 ; Admin Dose 5 MG; Start 08/06/17 at 09:00 Carvedilol 25 mg 25 mg BID PO Last administered on 08/07/17 08:13; Admin Dose 25 MG; Start 08/05/17 at 21:00 Levofloxacin/ Dextrose (Levaquin 500mg/ D5W 100 ml (Pmx)) 100 ml @ 100 mls/hr Q24H IVPB Last administered on 08/07/17 11:15; Admin Dose 100 MLS/HR; Start 08/06/17 at 11:00 Hydralazine HCl (Apresoline) 50 mg TID PO Last administered on 08/07/17 12:32 ; Admin Dose 50 MG; Start 08/06/17 at 21:00 Insulin Glargine (Lantus) 15 unit DAILY@20 SC ; Start 08/07/17 at 20:00 MEI MONTILLA Aug 07, 2017 14:34
[2017-08-07] MEDS ORDERED: INSULIN GLARGINE [LANtus] 3 ML PEN SC SCH (20:00)
[2017-08-07] MEDS: ACETAMINOPHEN 650MG/20.3ML CUP PO PRN (20:27)
[2017-08-07] MEDS ORDERED: MAGNESIUM HYDROXIDE 30ML CUP PO ONE (21:30)
[2017-08-07] MEDS ORDERED: MAGNESIUM HYDROXIDE 30ML CUP PO PRN (21:30)
[2017-08-07] MEDS: SENNA TAB PO SCH (21:57)
[2017-08-08] VITALS (11 sets, daily range): BP systolic 102–164; BP diastolic 53–70; PULSE 64–75; RESP 18–20
[2017-08-08] MEDS: ACCU-CHEK XX SCH (02:00)
[2017-08-08] MEDS: LEVOFLOXACIN 250 MG TAB PO SCH (05:35)
[2017-08-08] MEDS: HEPARIN 5,000 UNIT/0.5 ML VIAL SC SCH ×3 (05:41→20:21)
[2017-08-08] MEDS ORDERED: LEVOFLOXACIN 500 MG TAB PO SCH (06:00)
[2017-08-08] MEDS: INSULIN ASPART [NOVOLOG] 3 ML PEN SC SCH ×7 (08:01→20:20)
[2017-08-08] MEDS: ATORVASTATIN 40 MG TAB PO SCH (08:26)
[2017-08-08] MEDS: SENNA TAB PO SCH ×2 (08:27→20:29)
[2017-08-08] MEDS: AMLODIPINE 10 MG TAB PO SCH ×2 (08:27→20:27)
[2017-08-08] MEDS: FAMOTIDINE 20 MG TAB PO SCH (08:27)
[2017-08-08] MEDS: ASPIRIN (EC) 81 MG TAB PO SCH (08:27)
--- NOTE | 2017-08-08 09:08 | CONS ---
Date/Time of Note Date/Time of Note DATE: 08/08/17 TIME: 09:07 Consult Date/Type/Reason Admit Date/Time Aug 04, 2017 at 02:07 Type of Consultation: nephro Subjective pt. with no new c/o bp better bs still high good uop. Objective Vital Signs Date Time Temp Pulse Resp B/P Pulse Ox O2 Delivery O2 Flow Rate FiO2 08/08/17 08:28 70 08/08/17 08:16 98.0 20 145/63 98 08/06/17 22:00 Room Air 08/05/17 02:59 2.0 27 Intake and Output 08/07/17 08/07/17 08/08/17 15:00 23:00 07:00 Intake Total 300 ml 1000 ml 450 ml Output Total 400 ml Balance 300 ml 600 ml 450 ml Exam General: Patient is laying in bed and answers questions appropriately Mentation: Patient is alert and oriented 4, Head: Normocephalic atraumatic Eyes: EOMI, pupils reactive to light Neck: Supple, nontender, midline Respiratory: Clear to auscultation bilaterally Cardiovascular: regular rate, no obvious murmurs Gastrointestinal: non-tender to palpation, bowel sounds heard. Neurological: Moves all extremities spontaneously Skin: No new skin lesions Results/Medications Result Diagram: 08/06/17 0747 08/07/17 0716 Results 24 hrs Laboratory Tests Test 08/07/17 11:45 08/07/17 16:54 08/07/17 20:11 08/08/17 02:03 Bedside Glucose 280 H 248 H 214 259 H Test 08/08/17 07:57 Bedside Glucose 293 H Medications Current Medications Ondansetron HCl (Zofran Inj) 4 mg Q6H PRN IV NAUSEA AND/OR VOMITING Last administered on 08/06/17 18:21; Admin Dose 4 MG; Start 08/04/17 at 05:30 Acetaminophen (Tylenol Liquid) 650 mg Q6H PRN PO PAIN LEVEL 1-3 OR FEVER Last administered on 08/07/17 20:27; Admin Dose 650 MG; Start 08/04/17 at 05:30 Morphine Sulfate (morphine) 2 mg Q4H PRN IV PAIN LEVEL 7-10; Start 08/04/17 at 05:30 Famotidine (Pepcid) 20 mg DAILY PO Last administered on 08/08/17 08:27; Admin Dose 20 MG; Start 08/04/17 at 09:00 Heparin Sodium (Porcine) (Heparin (5000 Units/0.5 ml)) 5,000 unit Q8 SC Last administered on 08/08/17 05:41; Admin Dose 5,000 UNIT; Start 08/04/17 at 06:00 Aspirin (Halfprin) 81 mg DAILY PO Last administered on 08/08/17 08:27; Admin Dose 81 MG; Start 08/04/17 at 09:00 Hydralazine HCl (Apresoline) 10 mg Q4H PRN IV SBP > 160 Last administered on 00:35; Admin Dose 10 MG; Start 08/04/17 at 05:30 Atorvastatin Calcium (Lipitor) 40 mg DAILY PO Last administered on 08/08/17 08:26; Admin Dose 40 MG; Start 08/04/17 at 09:00 Labetalol HCl (Labetalol) 10 mg Q4 PRN IV systolic bp>160 Last administered on 08/05/17 03:33; Admin Dose 10 MG; Start 08/04/17 at 18:00 Diagnostic Test (Pha) (Accu-Chek) 1 ea 02 XX ; Start 08/06/17 at 02:00 Clonidine (Catapres) 0.1 mg TID PRN PO SBP> 160 Last administered on 08/06/17 14:38; Admin Dose 0.1 MG; Start 08/05/17 at 09:30 Miscellaneous Information 1 ea NOTE XX ; Start 08/05/17 at 10:30 Glucose (Glutose) 15 gm Q15M PRN PO DECREASED GLUCOSE; Start 08/05/17 at 10:30 Glucose (Glutose) 22.5 gm Q15M PRN PO DECREASED GLUCOSE; Start 08/05/17 at 10: 30 Dextrose (D50w Syringe) 25 ml Q15M PRN IV DECREASED GLUCOSE; Start 08/05/17 at 10:30 Dextrose (D50w Syringe) 50 ml Q15M PRN IV DECREASED GLUCOSE; Start 08/05/17 at 10:30 Glucagon (Glucagen) 1 mg Q15M PRN IM DECREASED GLUCOSE; Start 08/05/17 at 10:30 Glucose (Glutose) 15 gm Q15M PRN BUCCAL DECREASED GLUCOSE; Start 12/7/17 at 10 :30 Amlodipine Besylate (Norvasc) 5 mg BID PO Last administered on 08/08/17 08:27 ; Admin Dose 5 MG; Start 08/06/17 at 09:00 Carvedilol (Coreg) 25 mg BID PO Last administered on 08/08/17 08:27; Admin Dose 25 MG; Start 08/05/17 at 21:00 Hydralazine HCl (Apresoline) 50 mg TID PO Last administered on 08/08/17 08:27 ; Admin Dose 50 MG; Start 08/06/17 at 21:00 Insulin Glargine (Lantus) 15 unit DAILY@20 SC Last administered on 08/07/17 20 :24; Admin Dose 15 UNIT; Start 08/07/17 at 20:00 Levofloxacin (Levaquin) 250 mg DAILY@06 PO Last administered on 08/08/17 05: 35; Admin Dose 250 MG; Start 08/08/17 at 06:00 Senna (Senokot) 2 tab BID PO Last administered on 08/08/17 08:27; Admin Dose 2 TAB; Start 08/07/17 at 21:30 Magnesium Hydroxide (Milk Of Mag) 30 ml DAILY PRN PO CONSTIPATION; Start at 21:30 Assessment/Plan Chief Complaint/Hosp Course 1. Nonoliguric acute kidney injury on top of chronic kidney disease with unknown baseline creatinine. Etiology of acute kidney injury is secondary to hemodynamics. The patient's renal function has been improving with gentle IV hydration. At this point, continue current treatment plan, supportive care, renally dose all meds, would decrease rate of IV fluids as the patient is currently hypotensive. 2. Hyponatremia secondary to hyperglycemia in conjunction with acute kidney injury. The patient's sodium levels are improving. Continue to monitor. 3. Mixed acid base disorder. The patient had initial respiratory alkalosis and metabolic ketoacidosis. We will continue to monitor. 4. Anemia. Monitor hemoglobin and hematocrit levels. 5. Mineral bone disorder, monitor calcium and phosphorus levels. 6. Non-ST elevation myocardial infarction. The patient is undergoing medical management, pending cardiac catheterization. 7. Diabetes. Continue current insulin regimen. 8. Hypertensive urgency. Etiology in part due to underlying IV fluids.increase meds slowly, try acei in future if creat stable. 9. Hypothyroidism. Continue Synthroid. Problems: SHTORCH,AMISH MD Aug 08, 2017 09:08
[2017-08-08 11:42] LABS: BASOPHIL # 0.1 10^3/ul (0.0-0.1); BASOPHILS % 0.4 % (0.0-2.0); EOSINOPHILS % 0.3 % (0.0-7.0); HEMOGLOBIN 10.9 g/dl (12.0-16.0); LYMPHOCYTES # 1.3 10^3/ul (0.8-2.9); LYMPHOCYTES % 10.4 % (15.0-51.0); MEAN CORPUSCULAR HEMOGLOBIN 28.9 pg (29.0-33.0); MEAN CORPUSCULAR HGB CONC 34.1 g/dl (32.0-37.0); MEAN CORPUSCULAR VOLUME 84.9 fl (82.0-101.0); MONOCYTE # 0.9 10^3/ul (0.3-0.9); MONOCYTES % 7.3 % (0.0-11.0); NEUTROPHIL # 10.2 10^3/ul (1.6-7.5); NEUTROPHILS % 80.5 % (39.0-77.0); PLATELET COUNT 329 10^3/UL (140-415); RED BLOOD COUNT 3.77 10^6/ul (4.20-5.40); RED CELL DISTRIBUTION WIDTH 12.8 % (11.5-14.5); WHITE BLOOD COUNT 12.7 10^3/ul (4.8-10.8)
[2017-08-08 12:03] LABS: CALCIUM 8.2 mg/dl (8.4-10.2); CREATININE 1.7 mg/dl (0.44-1.00); POTASSIUM 4.7 mmol/L (3.5-5.1)
--- NOTE | 2017-08-08 12:47 | PN ---
Date/Time of Note Date/Time of Note DATE: 08/08/17 TIME: 12:46 Assessment/Plan VTE Prophylaxis VTE Prophylaxis Intervention: ambulation, SCD's Lines/Catheters IV Catheter Type (from Nrsg): Peripheral IV Urinary Cath still in place: No Assessment/Plan Chief Complaint/Hosp Course Subjective 12.7 patient feeling much better 12.8 no acute issues currently 12.9 no acute complaints 12.10 no acute complaints Objective Physical exam General: Patient is laying in bed and answers questions appropriately Mentation: Patient is alert and oriented 4, Head: Normocephalic atraumatic Eyes: EOMI, pupils reactive to light Neck: Supple, nontender, midline Respiratory: Clear to auscultation bilaterally Cardiovascular: regular rate, no obvious murmurs Gastrointestinal: non-tender to palpation, bowel sounds heard. Neurological: Moves all extremities spontaneously Skin: No new skin lesions Assessment and plan Non-ST elevated SC -Cardiology consultation appreciated -Downtrending, no chest pain during this event -Type II according to cardiology -Recommendations appreciated -lexiscan does not show acute any reversible defect Uncontrolled diabetes mellitus -Near DKA on arrival -Downgraded from ICU after a day of insulin drip -Patient on 90 units of Lantus and glipizide at home, not optimal regimen -We will start Lantus with mealtime insulin, adjust dose as needed, still very uncontrolled, will increase both lantus and mealtime -Hemoglobin A1c 12.5% Syncopal episode, frequent falls -Likely secondary to extreme hyperglycemia and near DKA compounded with sinusitis -MRI noted sinusitis -CT noted -Carotid Doppler noted, no acute issues -PT did not visit over weekend, patient may need long-term? Sinusitis -mod-severe per MRI -changed to levaquin Hypertensive urgency -Patient's blood pressure is difficult to control -Patient on clonidine 0.3 mg 3 times daily at home,will hold, on coreg and amlodipine here in the hospital -stopping fluids per nephrology recs Electrolyte derangement -Resolving, monitor History of chronic kidney disease -Nephrology following -patient likely at baseline Hypothyroidism -Monitor Disposition -Optimize insulin control -PT OT needed, did not see before due to high BP -dispo when BP more controlled, PT sees patient, and optimize insulin regimen Problems: Exam/Review of Systems Vital Signs Vitals Vital Signs Date Time Temp Pulse Resp B/P Pulse Ox O2 Delivery O2 Flow Rate FiO2 08/08/17 12:26 64 08/08/17 11:57 97.8 20 112/53 99 08/06/17 22:00 Room Air 08/05/17 02:59 2.0 27 Intake and Output 08/07/17 08/07/17 08/08/17 15:00 23:00 07:00 Intake Total 300 ml 1000 ml 450 ml Output Total 400 ml Balance 300 ml 600 ml 450 ml Results Result Diagram: 08/08/17 1123 08/08/17 1123 Results 24 hrs Laboratory Tests Test 08/07/17 16:54 08/07/17 20:11 08/08/17 02:03 08/08/17 07:57 Bedside Glucose 248 H 214 259 H 293 H Test 08/08/17 11:23 08/08/17 11:50 White Blood Count 12.7 H Red Blood Count 3.77 L Hemoglobin 10.9 L Hematocrit 32.0 L Mean Corpuscular Volume 84.9 Mean Corpuscular Hemoglobin 28.9 L Mean Corpuscular Hemoglobin Concent 34.1 Red Cell Distribution Width 12.8 Platelet Count 329 Mean Platelet Volume 11.0 H Neutrophils % 80.5 H Lymphocytes % 10.4 L Monocytes % 7.3 Eosinophils % 0.3 Basophils % 0.4 Nucleated Red Blood Cells % 0.0 Neutrophils # 10.2 H Lymphocytes # 1.3 Monocytes # 0.9 Eosinophils # 0.0 Basophils # 0.1 Nucleated Red Blood Cells # 0.0 Sodium Level 132 L Potassium Level 4.7 Chloride Level 104 Carbon Dioxide Level 21 Anion Gap 12 Blood Urea Nitrogen 37 H Creatinine 1.70 H Glucose Level 218 Calcium Level 8.2 L Bedside Glucose 180 Medications Medications Current Medications Ondansetron HCl (Zofran Inj) 4 mg Q6H PRN IV NAUSEA AND/OR VOMITING Last administered on 08/06/17 18:21; Admin Dose 4 MG; Start 08/04/17 at 05:30 Acetaminophen (Tylenol Liquid) 650 mg Q6H PRN PO PAIN LEVEL 1-3 OR FEVER Last administered on 08/07/17 20:27; Admin Dose 650 MG; Start 08/04/17 at 05:30 Morphine Sulfate (morphine) 2 mg Q4H PRN IV PAIN LEVEL 7-10; Start 08/04/17 at 05:30 Famotidine (Pepcid) 20 mg DAILY PO Last administered on 08/08/17 08:27; Admin Dose 20 MG; Start 08/04/17 at 09:00 Heparin Sodium (Porcine) (Heparin (5000 Units/0.5 ml)) 5,000 unit Q8 SC Last administered on 08/08/17 05:41; Admin Dose 5,000 UNIT; Start 08/04/17 at 06:00 Aspirin (Halfprin) 81 mg DAILY PO Last administered on 08/08/17 08:27; Admin Dose 81 MG; Start 08/04/17 at 09:00 Hydralazine HCl (Apresoline) 10 mg Q4H PRN IV SBP > 160 Last administered on 00:35; Admin Dose 10 MG; Start 08/04/17 at 05:30 Atorvastatin Calcium (Lipitor) 40 mg DAILY PO Last administered on 08/08/17 08:26; Admin Dose 40 MG; Start 08/04/17 at 09:00 Labetalol HCl (Labetalol) 10 mg Q4 PRN IV systolic bp>160 Last administered on 08/05/17 03:33; Admin Dose 10 MG; Start 08/04/17 at 18:00 Diagnostic Test (Pha) (Accu-Chek) 1 ea 02 XX ; Start 08/06/17 at 02:00 Clonidine (Catapres) 0.1 mg TID PRN PO SBP> 160 Last administered on 08/06/17 14:38; Admin Dose 0.1 MG; Start 08/05/17 at 09:30 Miscellaneous Information 1 ea NOTE XX ; Start 08/05/17 at 10:30 Glucose (Glutose) 15 gm Q15M PRN PO DECREASED GLUCOSE; Start 08/05/17 at 10:30 Glucose (Glutose) 22.5 gm Q15M PRN PO DECREASED GLUCOSE; Start 08/05/17 at 10: 30 Dextrose (D50w Syringe) 25 ml Q15M PRN IV DECREASED GLUCOSE; Start 08/05/17 at 10:30 Dextrose (D50w Syringe) 50 ml Q15M PRN IV DECREASED GLUCOSE; Start 08/05/17 at 10:30 Glucagon (Glucagen) 1 mg Q15M PRN IM DECREASED GLUCOSE; Start 08/05/17 at 10:30 Glucose (Glutose) 15 gm Q15M PRN BUCCAL DECREASED GLUCOSE; Start 08/05/17 at 10 :30 Amlodipine Besylate (Norvasc) 5 mg BID PO Last administered on 08/08/17 08:27 ; Admin Dose 5 MG; Start 08/06/17 at 09:00 Carvedilol (Coreg) 25 mg BID PO Last administered on 08/08/17 08:27; Admin Dose 25 MG; Start 08/05/17 at 21:00 Hydralazine HCl (Apresoline) 50 mg TID PO Last administered on 08/08/17 12:29 ; Admin Dose 50 MG; Start 08/06/17 at 21:00 Levofloxacin (Levaquin) 250 mg DAILY@06 PO Last administered on 08/08/17 05: 35; Admin Dose 250 MG; Start 08/08/17 at 06:00 Senna (Senokot) 2 tab BID PO Last administered on 08/08/17 08:27; Admin Dose 2 TAB; Start 08/07/17 at 21:30 Magnesium Hydroxide (Milk Of Mag) 30 ml DAILY PRN PO CONSTIPATION; Start at 21:30 Insulin Glargine (Lantus) 18 unit DAILY@20 SC ; Start 08/08/17 at 20:00 MEI MONTILLA Aug 08, 2017 12:47
[2017-08-08] MEDS ORDERED: INSULIN GLARGINE [LANtus] 3 ML PEN SC SCH (20:00)
[2017-08-09] MEDS: ACCU-CHEK XX SCH (02:00)
[2017-08-09 02:14] VITALS: BP 138/62; RESP 18
[2017-08-09] MEDS ORDERED: INSULIN ASPART [NOVOLOG] 3 ML PEN SC ONE (03:00)
[2017-08-09] MEDS: LEVOFLOXACIN 250 MG TAB PO SCH (04:51)
[2017-08-09 05:13] LABS: BASOPHIL # 0.1 10^3/ul (0.0-0.1); BASOPHILS % 0.4 % (0.0-2.0); EOSINOPHILS # 0.1 10^3/ul (0.0-0.5); EOSINOPHILS % 0.5 % (0.0-7.0); HEMATOCRIT 32.6 % (37.0-47.0); HEMOGLOBIN 10.9 g/dl (12.0-16.0); LYMPHOCYTES # 1.6 10^3/ul (0.8-2.9); MEAN CORPUSCULAR HEMOGLOBIN 28.2 pg (29.0-33.0); MEAN CORPUSCULAR HGB CONC 33.4 g/dl (32.0-37.0); MEAN CORPUSCULAR VOLUME 84.2 fl (82.0-101.0); MEAN PLATELET VOLUME 11.3 fl (7.4-10.4); MONOCYTE # 0.9 10^3/ul (0.3-0.9); MONOCYTES % 7.5 % (0.0-11.0); NEUTROPHIL # 8.7 10^3/ul (1.6-7.5); NEUTROPHILS % 76.5 % (39.0-77.0); PLATELET COUNT 353 10^3/UL (140-415); RED BLOOD COUNT 3.87 10^6/ul (4.20-5.40); RED CELL DISTRIBUTION WIDTH 12.9 % (11.5-14.5); WHITE BLOOD COUNT 11.4 10^3/ul (4.8-10.8)
[2017-08-09 05:33] LABS: CALCIUM 8.2 mg/dl (8.4-10.2); CREATININE 1.74 mg/dl (0.44-1.00); MAGNESIUM 2.9 mg/dl (1.7-2.5); POTASSIUM 4.3 mmol/L (3.5-5.1)
[2017-08-09] MEDS: HEPARIN 5,000 UNIT/0.5 ML VIAL SC SCH ×3 (05:51→20:25)
[2017-08-09 08:30] VITALS: BP 154/72; RESP 18
[2017-08-09] MEDS: INSULIN ASPART [NOVOLOG] 3 ML PEN SC SCH ×7 (09:40→20:24)
[2017-08-09] MEDS: SENNA TAB PO SCH ×2 (09:43→20:30)
[2017-08-09] MEDS: ATORVASTATIN 40 MG TAB PO SCH (09:44)
[2017-08-09] MEDS: FAMOTIDINE 20 MG TAB PO SCH (09:44)
[2017-08-09] MEDS: AMLODIPINE 10 MG TAB PO SCH ×2 (09:44→20:32)
[2017-08-09] MEDS: ASPIRIN (EC) 81 MG TAB PO SCH (09:44)
--- NOTE | 2017-08-09 10:59 | PN ---
DATE: 08/09/2017 SUBJECTIVE: The patient is stable. No events overnight. OBJECTIVE: VITAL SIGNS: Blood pressure 138/60, respiration 18, pulse 69, temperature 98.4. HEENT: Head is normocephalic. NECK: Supple. HEART: Regular rate. LUNGS: Show diminished breath sounds at base. ABDOMEN: Soft, nontender to palpation without rebound or guarding. EXTREMITIES: Negative for clubbing, cyanosis, no edema. DERMATOLOGIC: No rashes. MUSCULOSKELETAL: No joint effusions. NEUROLOGIC: No change in exam. MEDICATIONS: The patient's medications have been reviewed. LABORATORY DATA: Shows sodium 132, potassium 4.3, chloride 104, BUN 44, creatinine 1.74, glucose 30 7, magnesium 2.9, white count 9.4, hemoglobin 10.9, hematocrit 32.6, platelet count 353. ASSESSMENT AND PLAN: 1. Nonoliguric acute kidney injury on top of chronic kidney disease with unknown baseline serum cre atinine. Etiology of acute kidney injury is secondary to hemodynamics. The patient's renal functio n appears to be stabilizing around a creatinine of 1.7 mg/dL. At this point, will continue current treatment plan, supportive care, renally dose all meds. 2. Hyponatremia, etiology secondary to hyperglycemia in conjunction with acute kidney injury. Jeffery mmendation is to attain euglycemia. Would otherwise continue current treatment plan, limit free delmis er intake. 3. Anemia. Monitor hemoglobin and hematocrit levels. 4. Mineral bone disorder. Monitor calcium and phosphorus levels. 5. Non-ST elevation myocardial infarction. Continue current medical management. 6. Diabetes. Continue current insulin regimen. 7. Hypertension. Continue current blood pressure management. 8. Hypothyroidism. Continue Synthroid. Dictated By: DENTON VILLA DO NR/NTS Conf#: [id number] DID#: [id number] CC: PAULINA CAZARES MD;*End*
--- NOTE | 2017-08-09 14:24 | PN ---
Date/Time of Note Date/Time of Note DATE: 08/09/17 TIME: 14:11 Assessment/Plan VTE Prophylaxis VTE Prophylaxis Intervention: SCD's Lines/Catheters IV Catheter Type (from Nrs): Saline Lock Urinary Cath still in place: No Assessment/Plan Assessment/Plan 1. Non-ST elevated [place] - Cardiology consultation appreciated and managing blood pressure medications for better control - No episodes of chest pain - lexiscan does not show acute any reversible defect 2. Uncontrolled diabetes mellitus - Sugars still elevated but improving since admission - Will increase lantus to 24 units tonight and continue to monitor - Continue on Novolog 10 units with meals - Near DKA on arrival and downgraded from ICU after a day of insulin drip - Hemoglobin A1c 12.5% - Diabetic education consult placed 3. Syncopal episode, frequent falls - Likely secondary to extreme hyperglycemia and near DKA compounded with sinusitis - MRI noted sinusitis - CT noted - Carotid Doppler noted, no acute issues - Awaiting physical therapy assessment to see if need for SNF prior to returning home given frequent falls 4. Sinusitis - Mod-severe per MRI - On day 2 5. Hypertensive urgency - Has been difficult to control and medication changes made per cardiology - Better controlled today and will continue on current regime 6. Electrolyte derangement - Resolving, monitor 7. History of chronic kidney disease - Nephrology on board and consultation appreciated 8. Hypothyroidism - Monitor 9. Disposition - Optimize insulin control - PT/OT recommendations pending for dispo given history of frequent falls and need for possible SNF vs Rehab vs HH with PT Subjective 24 Hr Interval Summary Free Text/Dictation Patient feels like she's improving and was working with speech therapy at time of interview. No acute overnight events and no further episodes of syncope. Glucose still elevated Exam/Review of Systems Vital Signs Vitals Vital Signs Date Time Temp Pulse Resp B/P Pulse Ox O2 Delivery O2 Flow Rate FiO2 08/09/17 08:30 98.5 68 18 154/72 97 08/06/17 22:00 Room Air Intake and Output 08/08/17 08/08/17 08/09/17 15:00 23:00 07:00 Intake Total 620 ml 550 ml Balance 620 ml 550 ml Exam General: Patient is laying in bed and answers questions appropriately. no acute distress Mentation: Patient is alert and oriented 4, Head: Normocephalic atraumatic Eyes: EOMI, pupils reactive to light Neck: Supple, nontender, midline Respiratory: Clear to auscultation bilaterally. no wheezes or rhonchi Cardiovascular: regular rate, no obvious murmurs Gastrointestinal: non-tender to palpation, bowel sounds heard. Neurological: Moves all extremities spontaneously Skin: No new skin lesions Results Result Diagram: 08/09/17 0418 08/09/17 0418 Results 24 hrs Laboratory Tests Test 08/08/17 17:54 08/08/17 20:16 08/09/17 01:53 08/09/17 04:18 Bedside Glucose 125 283 H 307 H White Blood Count 11.4 H Red Blood Count 3.87 L Hemoglobin 10.9 L Hematocrit 32.6 L Mean Corpuscular Volume 84.2 Mean Corpuscular Hemoglobin 28.2 L Mean Corpuscular Hemoglobin Concent 33.4 Red Cell Distribution Width 12.9 Platelet Count 353 Mean Platelet Volume 11.3 H Neutrophils % 76.5 Lymphocytes % 14.0 L Monocytes % 7.5 Eosinophils % 0.5 Basophils % 0.4 Nucleated Red Blood Cells % 0.0 Neutrophils # 8.7 H Lymphocytes # 1.6 Monocytes # 0.9 Eosinophils # 0.1 Basophils # 0.1 Nucleated Red Blood Cells # 0.0 Sodium Level 132 L Potassium Level 4.3 Chloride Level 104 Carbon Dioxide Level 22 Anion Gap 10 Blood Urea Nitrogen 44 H Creatinine 1.74 H Glucose Level 210 Calcium Level 8.2 L Phosphorus Level 4.0 Magnesium Level 2.9 H Test 08/09/17 08:45 08/09/17 12:35 Bedside Glucose 152 118 Medications Medications Current Medications Ondansetron HCl (Zofran Inj) 4 mg Q6H PRN IV NAUSEA AND/OR VOMITING Last administered on 08/06/17 18:21; Admin Dose 4 MG; Start 08/04/17 at 05:30 Acetaminophen (Tylenol Liquid) 650 mg Q6H PRN PO PAIN LEVEL 1-3 OR FEVER Last administered on 08/07/17 20:27; Admin Dose 650 MG; Start 08/04/17 at 05:30 Morphine Sulfate (morphine) 2 mg Q4H PRN IV PAIN LEVEL 7-10; Start 08/04/17 at 05:30 Famotidine (Pepcid) 20 mg DAILY PO Last administered on 08/09/17 09:44; Admin Dose 20 MG; Start 08/04/17 at 09:00 Heparin Sodium (Porcine) (Heparin (5000 Units/0.5 ml)) 5,000 unit Q8 SC Last administered on 08/09/17 13:33; Admin Dose 5,000 UNIT; Start 08/04/17 at 06:00 Aspirin (Halfprin) 81 mg DAILY PO Last administered on 08/09/17 09:44; Admin Dose 81 MG; Start 08/04/17 at 09:00 Hydralazine HCl (Apresoline) 10 mg Q4H PRN IV SBP > 160 Last administered on 00:35; Admin Dose 10 MG; Start 08/04/17 at 05:30 Atorvastatin Calcium (Lipitor) 40 mg DAILY PO Last administered on 08/09/17 09:44; Admin Dose 40 MG; Start 08/04/17 at 09:00 Labetalol HCl (Labetalol) 10 mg Q4 PRN IV systolic bp>160 Last administered on 08/05/17 03:33; Admin Dose 10 MG; Start 08/04/17 at 18:00 Diagnostic Test (Pha) (Accu-Chek) 1 ea 02 XX ; Start 08/06/17 at 02:00 Clonidine (Catapres) 0.1 mg TID PRN PO SBP> 160 Last administered on 08/06/17 14:38; Admin Dose 0.1 MG; Start 08/05/17 at 09:30 Miscellaneous Information 1 ea NOTE XX ; Start 08/05/17 at 10:30 Glucose (Glutose) 15 gm Q15M PRN PO DECREASED GLUCOSE; Start 08/05/17 at 10:30 Glucose (Glutose) 22.5 gm Q15M PRN PO DECREASED GLUCOSE; Start 08/05/17 at 10: 30 Dextrose (D50w Syringe) 25 ml Q15M PRN IV DECREASED GLUCOSE; Start 08/05/17 at 10:30 Dextrose (D50w Syringe) 50 ml Q15M PRN IV DECREASED GLUCOSE; Start 08/05/17 at 10:30 Glucagon (Glucagen) 1 mg Q15M PRN IM DECREASED GLUCOSE; Start 08/05/17 at 10:30 Glucose (Glutose) 15 gm Q15M PRN BUCCAL DECREASED GLUCOSE; Start 08/05/17 at 10 :30 Amlodipine Besylate (Norvasc) 5 mg BID PO Last administered on 08/09/17 09:44 ; Admin Dose 5 MG; Start 08/06/17 at 09:00 Carvedilol (Coreg) 25 mg BID PO Last administered on 08/09/17 09:44; Admin Dose 25 MG; Start 08/05/17 at 21:00 Hydralazine HCl (Apresoline) 50 mg TID PO Last administered on 08/09/17 13:33 ; Admin Dose 50 MG; Start 08/06/17 at 21:00 Levofloxacin (Levaquin) 250 mg DAILY@06 PO Last administered on 08/09/17 04: 51; Admin Dose 250 MG; Start 08/08/17 at 06:00 Senna (Senokot) 2 tab BID PO Last administered on 08/09/17 09:43; Admin Dose 2 TAB; Start 08/07/17 at 21:30 Magnesium Hydroxide (Milk Of Mag) 30 ml DAILY PRN PO CONSTIPATION; Start at 21:30 Insulin Glargine (Lantus) 24 unit DAILY@20 SC ; Start 08/09/17 at 20:00 KIRT ROMERO MD Aug 09, 2017 14:24
[2017-08-09 16:00] VITALS: BP 128/61; RESP 18
[2017-08-09 18:22] VITALS: BP 125/67; PULSE 92; RESP 16
--- NOTE | 2017-08-09 19:10 | CONS ---
Date/Time of Note Date/Time of Note DATE: 08/09/17 TIME: 19:09 Assessment/Plan Assessment/Plan Chief Complaint/Hosp Course Assessment: NSTEMI - likely type 2, Lexiscan SPECT negative Accelerated hypertension - blood pressures improved Acute kidney injury on chronic kidney disease - renal function improved Diabetic ketoacidosis - resolved Insulin-dependent diabetes mellitus Dyslipidemia Leukocytosis - possibly reactive, rule out infection Recommendations: -continue carvedilol 25mg BID, amlodipine 5mg BID, hydralazine 50mg TID -continue aspirin and statin -echocardiogram showed LVEF >70%, severe LVH -Lexiscan SPECT negative -no additional cardiac work up at this time Problems: Consultation Date/Type/Reason Admit Date/Time Aug 04, 2017 at 02:07 Type of Consultation: Cardiology 24 HR Interval Summary Free Text/Dictation No acute events. No chest pain or shortness of breath. Detailed Summary Additional Comments 14 point review of systems without changes. Exam/Review of Systems Vital Signs Vitals Vital Signs Date Time Temp Pulse Resp B/P Pulse Ox O2 Delivery O2 Flow Rate FiO2 08/09/17 18:22 97.5 92 16 125/67 Room Air 08/09/17 16:00 96 Intake and Output 08/08/17 08/08/17 08/09/17 15:00 23:00 07:00 Intake Total 620 ml 550 ml Balance 620 ml 550 ml Exam Constitutional: alert, well developed Psych: nl mood/affect, no complaints Head: atraumatic, normocephalic Eyes: nl conjunctiva ENMT: nl external ears & nose, nl nasal mucosa & septum Neck: non-tender, supple Respiratory: clear to auscultation, normal air movement Cardiovascular: regular rate and rhythm Gastrointestinal: non-tender, soft Musculoskeletal: nl extremities to inspection Extremities: No clubbing, No cyanosis, No edema Neurological: nl mental status, nl speech Skin: nl turgor Results Result Diagram: 08/09/17 0418 08/09/17 0418 Results 24 hrs Laboratory Tests Test 08/08/17 20:16 08/09/17 01:53 08/09/17 04:18 08/09/17 08:45 Bedside Glucose 283 H 307 H 152 White Blood Count 11.4 H Red Blood Count 3.87 L Hemoglobin 10.9 L Hematocrit 32.6 L Mean Corpuscular Volume 84.2 Mean Corpuscular Hemoglobin 28.2 L Mean Corpuscular Hemoglobin Concent 33.4 Red Cell Distribution Width 12.9 Platelet Count 353 Mean Platelet Volume 11.3 H Neutrophils % 76.5 Lymphocytes % 14.0 L Monocytes % 7.5 Eosinophils % 0.5 Basophils % 0.4 Nucleated Red Blood Cells % 0.0 Neutrophils # 8.7 H Lymphocytes # 1.6 Monocytes # 0.9 Eosinophils # 0.1 Basophils # 0.1 Nucleated Red Blood Cells # 0.0 Sodium Level 132 L Potassium Level 4.3 Chloride Level 104 Carbon Dioxide Level 22 Anion Gap 10 Blood Urea Nitrogen 44 H Creatinine 1.74 H Glucose Level 210 Calcium Level 8.2 L Phosphorus Level 4.0 Magnesium Level 2.9 H Test 08/09/17 12:35 08/09/17 17:34 Bedside Glucose 118 92 Medications Medications Current Medications Ondansetron HCl (Zofran Inj) 4 mg Q6H PRN IV NAUSEA AND/OR VOMITING Last administered on 08/06/17 18:21; Admin Dose 4 MG; Start 08/04/17 at 05:30 Acetaminophen (Tylenol Liquid) 650 mg Q6H PRN PO PAIN LEVEL 1-3 OR FEVER Last administered on 08/07/17 20:27; Admin Dose 650 MG; Start 08/04/17 at 05:30 Morphine Sulfate (morphine) 2 mg Q4H PRN IV PAIN LEVEL 7-10; Start 08/04/17 at 05:30 Famotidine (Pepcid) 20 mg DAILY PO Last administered on 08/09/17 09:44; Admin Dose 20 MG; Start 08/04/17 at 09:00 Heparin Sodium (Porcine) (Heparin (5000 Units/0.5 ml)) 5,000 unit Q8 SC Last administered on 08/09/17 13:33; Admin Dose 5,000 UNIT; Start 08/04/17 at 06:00 Aspirin (Halfprin) 81 mg DAILY PO Last administered on 08/09/17 09:44; Admin Dose 81 MG; Start 08/04/17 at 09:00 Hydralazine HCl (Apresoline) 10 mg Q4H PRN IV SBP > 160 Last administered on 00:35; Admin Dose 10 MG; Start 08/04/17 at 05:30 Atorvastatin Calcium (Lipitor) 40 mg DAILY PO Last administered on 08/09/17 09:44; Admin Dose 40 MG; Start 08/04/17 at 09:00 Labetalol HCl (Labetalol) 10 mg Q4 PRN IV systolic bp>160 Last administered on 08/05/17 03:33; Admin Dose 10 MG; Start 08/04/17 at 18:00 Diagnostic Test (Pha) (Accu-Chek) 1 ea 02 XX ; Start 08/06/17 at 02:00 Clonidine (Catapres) 0.1 mg TID PRN PO SBP> 160 Last administered on 08/06/17 14:38; Admin Dose 0.1 MG; Start 08/05/17 at 09:30 Miscellaneous Information 1 ea NOTE XX ; Start 08/05/17 at 10:30 Glucose (Glutose) 15 gm Q15M PRN PO DECREASED GLUCOSE; Start 08/05/17 at 10:30 Glucose (Glutose) 22.5 gm Q15M PRN PO DECREASED GLUCOSE; Start 08/05/17 at 10: 30 Dextrose (D50w Syringe) 25 ml Q15M PRN IV DECREASED GLUCOSE; Start 08/05/17 at 10:30 Dextrose (D50w Syringe) 50 ml Q15M PRN IV DECREASED GLUCOSE; Start 08/05/17 at 10:30 Glucagon (Glucagen) 1 mg Q15M PRN IM DECREASED GLUCOSE; Start 08/05/17 at 10:30 Glucose (Glutose) 15 gm Q15M PRN BUCCAL DECREASED GLUCOSE; Start 08/05/17 at 10 :30 Amlodipine Besylate (Norvasc) 5 mg BID PO Last administered on 08/09/17 09:44 ; Admin Dose 5 MG; Start 08/06/17 at 09:00 Carvedilol (Coreg) 25 mg BID PO Last administered on 08/09/17 09:44; Admin Dose 25 MG; Start 08/05/17 at 21:00 Hydralazine HCl (Apresoline) 50 mg TID PO Last administered on 08/09/17 13:33 ; Admin Dose 50 MG; Start 08/06/17 at 21:00 Levofloxacin (Levaquin) 250 mg DAILY@06 PO Last administered on 08/09/17 04: 51; Admin Dose 250 MG; Start 08/08/17 at 06:00 Senna (Senokot) 2 tab BID PO Last administered on 08/09/17t 09:43; Admin Dose 2 TAB; Start 08/07/17 at 21:30 Magnesium Hydroxide (Milk Of Mag) 30 ml DAILY PRN PO CONSTIPATION; Start at 21:30 Insulin Glargine (Lantus) 24 unit DAILY@20 SC ; Start 08/09/17 at 20:00 CANDELARIO AVINA MD Aug 09, 2017 19:10
[2017-08-09] MEDS ORDERED: INSULIN GLARGINE [LANtus] 3 ML PEN SC SCH (20:00)
[2017-08-09] MEDS: INSULIN GLARGINE [LANtus] 3 ML PEN SC SCH (20:24)
[2017-08-09 20:32] VITALS: BP 141/64; RESP 20
[2017-08-10] MEDS: ACCU-CHEK XX SCH (02:00)
[2017-08-10 02:15] VITALS: BP 142/75; RESP 18
[2017-08-10] MEDS: HEPARIN 5,000 UNIT/0.5 ML VIAL SC SCH ×3 (05:15→20:31)
[2017-08-10] MEDS: LEVOFLOXACIN 250 MG TAB PO SCH (05:15)
[2017-08-10 07:09] LABS: CALCIUM 7.9 mg/dl (8.4-10.2); CREATININE 1.65 mg/dl (0.44-1.00); MAGNESIUM 2.7 mg/dl (1.7-2.5); PHOSPHORUS 4.5 mg/dl (2.5-4.9); POTASSIUM 4.3 mmol/L (3.5-5.1)
[2017-08-10] MEDS: INSULIN ASPART [NOVOLOG] 3 ML PEN SC SCH ×7 (07:50→20:29)
[2017-08-10] MEDS: SENNA TAB PO SCH ×2 (09:23→20:26)
[2017-08-10] MEDS: ASPIRIN (EC) 81 MG TAB PO SCH (09:24)
[2017-08-10] MEDS: FAMOTIDINE 20 MG TAB PO SCH (09:24)
[2017-08-10] MEDS: ATORVASTATIN 40 MG TAB PO SCH (09:24)
[2017-08-10] MEDS: AMLODIPINE 10 MG TAB PO SCH ×2 (09:24→20:26)
--- NOTE | 2017-08-10 10:07 | PN ---
Date/Time of Note Date/Time of Note DATE: 08/10/17 TIME: 10:07 Assessment/Plan VTE Prophylaxis VTE Prophylaxis Intervention: SCD's Lines/Catheters IV Catheter Type (from Nrsg): Saline Lock Urinary Cath still in place: No Assessment/Plan Assessment/Plan 1. Non-ST elevated [place]- stable - Cardiology consultation appreciated and managing blood pressure medications for better control - No episodes of chest pain - Lexiscan does not show acute any reversible defect 2. Uncontrolled diabetes mellitus - Sugars better controlled on increased dose of lantus - Will continue current Lantus dose and continue to monitor - Continue on Novolog 10 units with meals - Near DKA on arrival and downgraded from ICU after a day of insulin drip - Hemoglobin A1c 12.5% - Diabetic education consult placed 3. Syncopal episode, frequent falls - Likely secondary to extreme hyperglycemia and near DKA compounded with sinusitis - MRI noted sinusitis - CT noted - Carotid Doppler noted, no acute issues - PT recommending ARU vs SNF placement which family agreeable to. Consult placed to CM for assistance 4. Sinusitis - Mod-severe per MRI - On aquin day 3 5. Hypertensive urgency - Better controlled and will continue on current regime - Cardiology assistance appreciated 6. Electrolyte derangement - Resolving, monitor 7. History of chronic kidney disease - Nephrology on board and consultation appreciated - Renal function continues to improve 8. Hypothyroidism - Monitor 9. Disposition - CM consult placed for ARU vs SNF placement. Medically stable for discharge once placement found Subjective 24 Hr Interval Summary Free Text/Dictation Patient states she feeling better and aware that kidney function is improving. When offered placement stated she would like to wait for her daughter who is a physical therapist. Spoke with PT who recommended ARU vs SNF for further therapy given patient tends to lean to the right. No acute overnight events. Exam/Review of Systems Vital Signs Vitals Vital Signs Date Time Temp Pulse Resp B/P Pulse Ox O2 Delivery O2 Flow Rate FiO2 08/10/17 02:15 98.3 86 18 142/75 97 08/09/17 18:22 Room Air Intake and Output 08/09/17 08/09/17 08/10/17 15:00 23:00 07:00 Intake Total 500 ml 750 ml Balance 500 ml 750 ml Exam General: Patient is sitting in chair in no acute distress. awake and alert. answering questions appropriately Mentation: Patient is alert and oriented 4, Head: Normocephalic atraumatic Eyes: EOMI, pupils reactive to light Neck: Supple, nontender, midline Respiratory: Clear to auscultation bilaterally. no wheezes or rhonchi Cardiovascular: regular rate, no obvious murmurs Gastrointestinal: non-tender to palpation, bowel sounds heard. Neurological: Moves all extremities spontaneously Skin: No new skin lesions Results Result Diagram: 08/09/17 0418 08/10/17 0429 Results 24 hrs Laboratory Tests Test 08/09/17 12:35 08/09/17 17:34 08/09/17 20:16 08/10/17 01:52 Bedside Glucose 118 92 181 167 Test 08/10/17 04:29 08/10/17 09:17 Sodium Level 130 L Potassium Level 4.3 Chloride Level 103 Carbon Dioxide Level 20 L Anion Gap 11 Blood Urea Nitrogen 45 H Creatinine 1.65 H Glucose Level 138 # Calcium Level 7.9 L Phosphorus Level 4.5 Magnesium Level 2.7 H Bedside Glucose 127 Medications Medications Current Medications Ondansetron HCl (Zofran Inj) 4 mg Q6H PRN IV NAUSEA AND/OR VOMITING Last administered on 08/06/17 18:21; Admin Dose 4 MG; Start 08/04/17 at 05:30 Acetaminophen (Tylenol Liquid) 650 mg Q6H PRN PO PAIN LEVEL 1-3 OR FEVER Last administered on 08/07/17 20:27; Admin Dose 650 MG; Start 08/04/17 at 05:30 Morphine Sulfate (morphine) 2 mg Q4H PRN IV PAIN LEVEL 7-10; Start 08/04/17 at 05:30 Famotidine (Pepcid) 20 mg DAILY PO Last administered on 08/10/17 09:24; Admin Dose 20 MG; Start 08/04/17 at 09:00 Heparin Sodium (Porcine) (Heparin (5000 Units/0.5 ml)) 5,000 unit Q8 SC Last administered on 08/10/17 05:15; Admin Dose 5,000 UNIT; Start 08/04/17 at 06:00 Aspirin (Halfprin) 81 mg DAILY PO Last administered on 08/10/17 09:24; Admin Dose 81 MG; Start 08/04/17 at 09:00 Hydralazine HCl (Apresoline) 10 mg Q4H PRN IV SBP > 160 Last administered on 00:35; Admin Dose 10 MG; Start 08/04/17 at 05:30 Atorvastatin Calcium (Lipitor) 40 mg DAILY PO Last administered on 08/10/17 09:24; Admin Dose 40 MG; Start 08/04/17 at 09:00 Labetalol HCl (Labetalol) 10 mg Q4 PRN IV systolic bp>160 Last administered on 08/05/17 03:33; Admin Dose 10 MG; Start 08/04/17 at 18:00 Diagnostic Test (Pha) (Accu-Chek) 1 ea 02 XX ; Start 08/06/17 at 02:00 Clonidine (Catapres) 0.1 mg TID PRN PO SBP> 160 Last administered on 08/06/17 14:38; Admin Dose 0.1 MG; Start 08/05/17 at 09:30 Miscellaneous Information 1 ea NOTE XX ; Start 08/05/17 at 10:30 Glucose (Glutose) 15 gm Q15M PRN PO DECREASED GLUCOSE; Start 08/05/17 at 10:30 Glucose (Glutose) 22.5 gm Q15M PRN PO DECREASED GLUCOSE; Start 08/05/17 at 10: 30 Dextrose (D50w Syringe) 25 ml Q15M PRN IV DECREASED GLUCOSE; Start 08/05/17 at 10:30 Dextrose (D50w Syringe) 50 ml Q15M PRN IV DECREASED GLUCOSE; Start 08/05/17 at 10:30 Glucagon (Glucagen) 1 mg Q15M PRN IM DECREASED GLUCOSE; Start 08/05/17 at 10:30 Glucose (Glutose) 15 gm Q15M PRN BUCCAL DECREASED GLUCOSE; Start 08/05/17 at 10 :30 Amlodipine Besylate (Norvasc) 5 mg BID PO Last administered on 08/10/17 09:24 ; Admin Dose 5 MG; Start 08/06/17 at 09:00 Carvedilol (Coreg) 25 mg BID PO Last administered on 08/10/17 09:23; Admin Dose 25 MG; Start 08/05/17 at 21:00 Hydralazine HCl (Apresoline) 50 mg TID PO Last administered on 08/10/17 09:24 ; Admin Dose 50 MG; Start 08/06/17 at 21:00 Levofloxacin (Levaquin) 250 mg DAILY@06 PO Last administered on 08/10/17 05: 15; Admin Dose 250 MG; Start 08/08/17 at 06:00 Senna (Senokot) 2 tab BID PO Last administered on 08/10/17 09:23; Admin Dose 2 TAB; Start 08/07/17 at 21:30 Magnesium Hydroxide (Milk Of Mag) 30 ml DAILY PRN PO CONSTIPATION; Start at 21:30 Insulin Glargine (Lantus) 24 unit DAILY@20 SC Last administered on 08/09/17 20:24; Admin Dose 24 UNIT; Start 08/09/17 at 20:00 KIRT ROMERO MD Aug 10, 2017 10:07
--- NOTE | 2017-08-10 10:50 | PN ---
DATE: 08/10/2017 SUBJECTIVE: The patient is stable. No events overnight. No fevers, chills, nausea, vomiting. OBJECTIVE: VITAL SIGNS: Blood pressure is 142/75, respiration 18, pulse 86, temperature 98.3. HEENT: Head is normocephalic. NECK: Supple. HEART: Regular rate. LUNGS: Show diminished breath sounds at base. ABDOMEN: Soft, nontender to palpation without rebound or guarding. EXTREMITIES: Negative for clubbing, cyanosis, no edema. DERMATOLOGIC: No rashes. MUSCULOSKELETAL: No joint effusions. NEUROLOGIC: No change in exam. MEDICATIONS: The patient's medications have been reviewed. LABORATORY DATA: Shows sodium 130, potassium 4.3, chloride 103, BUN 45, creatinine 1.65, calcium 7. 9, magnesium 2.7. ASSESSMENT AND PLAN: 1. Nonoliguric acute kidney injury on top of chronic kidney disease with unknown baseline creatinin e. Etiology of acute kidney injury is secondary to hemodynamics, questionable tubular injury. The patient's renal function appears to be stabilizing. At this point, will continue current treatment plan, supportive care, renally dose all meds. 2. Hyponatremia. Etiology is multifactorial secondary to acute kidney injury causing decreased ramila e water urinary excretion. Would recommend to maintain the patient on free water restriction of no more than 1 liter daily and monitor closely. 3. Metabolic acidosis secondary to acute kidney injury and chronic kidney disease. Continue to mon itor bicarbonate levels. 4. Anemia. Monitor hemoglobin and hematocrit levels. Will give Epogen as needed. 5. Mineral bone disorder, monitor calcium and phosphorus levels. 6. Non-ST elevation myocardial infarction. Continue current medical management. 7. Diabetes. Continue current insulin regimen. 8. Hypertension. Continue current blood pressure regimen. 9. Hypothyroidism. Continue Synthroid. 10. Mild hypermagnesemia secondary to acute kidney injury. Continue to monitor. Dictated By: DENTON VILLA DO NR/NTS Conf#: [id number] DID#: [id number] CC: PAULINA CAZARES MD;*EndCC*
[2017-08-10 12:58] VITALS: BP 136/58; PULSE 66
[2017-08-10 15:44] VITALS: BP 135/64; RESP 18
--- NOTE | 2017-08-10 16:48 | CONS ---
Date/Time of Note Date/Time of Note DATE: 08/10/17 TIME: 16:47 Assessment/Plan Assessment/Plan Chief Complaint/Hosp Course Assessment: NSTEMI - likely type 2, Lexiscan SPECT negative Accelerated hypertension - blood pressures improved Acute kidney injury on chronic kidney disease - renal function improved Diabetic ketoacidosis - resolved Insulin-dependent diabetes mellitus Dyslipidemia Leukocytosis - possibly reactive, rule out infection Recommendations: -continue carvedilol 25mg BID, amlodipine 5mg BID, hydralazine 50mg TID -continue aspirin and statin -echocardiogram showed LVEF >70%, severe LVH -Lexiscan SPECT negative -no additional cardiac work up at this time, will follow up as needed Problems: Consultation Date/Type/Reason Admit Date/Time Aug 04, 2017 at 02:07 Type of Consultation: Cardiology 24 HR Interval Summary Free Text/Dictation No acute events. Detailed Summary Additional Comments 14 point review of systems without changes. Exam/Review of Systems Vital Signs Vitals Vital Signs Date Time Temp Pulse Resp B/P Pulse Ox O2 Delivery O2 Flow Rate FiO2 08/10/17 15:44 98.4 71 18 135/64 98 08/09/17 18:22 Room Air Intake and Output 08/09/17 08/09/17 08/10/17 15:00 23:00 07:00 Intake Total 500 ml 750 ml Balance 500 ml 750 ml Exam Constitutional: alert, well developed Psych: nl mood/affect, no complaints Head: atraumatic, normocephalic Eyes: nl conjunctiva ENMT: nl external ears & nose, nl nasal mucosa & septum Neck: non-tender, supple Respiratory: clear to auscultation, normal air movement Cardiovascular: regular rate and rhythm Gastrointestinal: non-tender, soft Musculoskeletal: nl extremities to inspection Extremities: No clubbing, No cyanosis, No edema Neurological: nl mental status, nl speech Skin: nl turgor Results Result Diagram: 08/09/17 0418 08/10/17 0429 Results 24 hrs Laboratory Tests Test 08/09/17 17:34 08/09/17 20:16 08/10/17 01:52 08/10/17 04:29 Bedside Glucose 92 181 167 Sodium Level 130 L Potassium Level 4.3 Chloride Level 103 Carbon Dioxide Level 20 L Anion Gap 11 Blood Urea Nitrogen 45 H Creatinine 1.65 H Glucose Level 138 # Calcium Level 7.9 L Phosphorus Level 4.5 Magnesium Level 2.7 H Test 08/10/17 09:17 08/10/17 13:00 Bedside Glucose 127 130 Medications Medications Current Medications Ondansetron HCl (Zofran Inj) 4 mg Q6H PRN IV NAUSEA AND/OR VOMITING Last administered on 08/06/17 18:21; Admin Dose 4 MG; Start 08/04/17 at 05:30 Acetaminophen (Tylenol Liquid) 650 mg Q6H PRN PO PAIN LEVEL 1-3 OR FEVER Last administered on 08/07/17 20:27; Admin Dose 650 MG; Start 08/04/17 at 05:30 Morphine Sulfate (morphine) 2 mg Q4H PRN IV PAIN LEVEL 7-10; Start 08/04/17 at 05:30 Famotidine (Pepcid) 20 mg DAILY PO Last administered on 08/10/17 09:24; Admin Dose 20 MG; Start 08/04/17 at 09:00 Heparin Sodium (Porcine) (Heparin (5000 Units/0.5 ml)) 5,000 unit Q8 SC Last administered on 08/10/17 14:12; Admin Dose 5,000 UNIT; Start 08/04/17 at 06:00 Aspirin (Halfprin) 81 mg DAILY PO Last administered on 08/10/17 09:24; Admin Dose 81 MG; Start 08/04/17 at 09:00 Hydralazine HCl (Apresoline) 10 mg Q4H PRN IV SBP > 160 Last administered on 00:35; Admin Dose 10 MG; Start 08/04/17 at 05:30 Atorvastatin Calcium (Lipitor) 40 mg DAILY PO Last administered on 08/10/17 09:24; Admin Dose 40 MG; Start 08/04/17 at 09:00 Labetalol HCl (Labetalol) 10 mg Q4 PRN IV systolic bp>160 Last administered on 08/05/17 03:33; Admin Dose 10 MG; Start 08/04/17 at 18:00 Diagnostic Test (Pha) (Accu-Chek) 1 ea 02 XX ; Start 08/06/17 at 02:00 Clonidine (Catapres) 0.1 mg TID PRN PO SBP> 160 Last administered on 08/06/17 14:38; Admin Dose 0.1 MG; Start 08/05/17 at 09:30 Miscellaneous Information 1 ea NOTE XX ; Start 08/05/17 at 10:30 Glucose (Glutose) 15 gm Q15M PRN PO DECREASED GLUCOSE; Start 08/05/17 at 10:30 Glucose (Glutose) 22.5 gm Q15M PRN PO DECREASED GLUCOSE; Start 08/05/17 at 10: 30 Dextrose (D50w Syringe) 25 ml Q15M PRN IV DECREASED GLUCOSE; Start 08/05/17 at 10:30 Dextrose (D50w Syringe) 50 ml Q15M PRN IV DECREASED GLUCOSE; Start 08/05/17 at 10:30 Glucagon (Glucagen) 1 mg Q15M PRN IM DECREASED GLUCOSE; Start 08/05/17 at 10:30 Glucose (Glutose) 15 gm Q15M PRN BUCCAL DECREASED GLUCOSE; Start 08/05/17 at 10 :30 Amlodipine Besylate (Norvasc) 5 mg BID PO Last administered on 08/10/17 09:24 ; Admin Dose 5 MG; Start 08/06/17 at 09:00 Carvedilol (Coreg) 25 mg BID PO Last administered on 08/10/17 09:23; Admin Dose 25 MG; Start 08/05/17 at 21:00 Hydralazine HCl (Apresoline) 50 mg TID PO Last administered on 08/10/17 12:59 ; Admin Dose 50 MG; Start 08/06/17 at 21:00 Levofloxacin (Levaquin) 250 mg DAILY@06 PO Last administered on 08/10/17 05: 15; Admin Dose 250 MG; Start 08/08/17 at 06:00 Senna (Senokot) 2 tab BID PO Last administered on 08/10/17 09:23; Admin Dose 2 TAB; Start 08/07/17 at 21:30 Magnesium Hydroxide (Milk Of Mag) 30 ml DAILY PRN PO CONSTIPATION; Start at 21:30 Insulin Glargine (Lantus) 24 unit DAILY@20 SC Last administered on 08/09/17 20:24; Admin Dose 24 UNIT; Start 08/09/17 at 20:00 CANDELARIO AVINA MD Aug 10, 2017 16:48
--- NOTE | 2017-08-10 17:01 | PDOCDIS ---
Discharge Instructions DIAGNOSIS Discharge Diagnosis 1. Non-ST elevated NM- stable 2. Uncontrolled diabetes mellitus 3. Syncopal episode, frequent falls 4. Sinusitis 5. Hypertensive urgency 6. Electrolyte derangement 7. History of chronic kidney disease 8. Hypothyroidism CONDITION Patient Condition: Fair HOME CARE INSTRUCTIONS: Diet Instructions: Low Fat /Cholesterol FOLLOW UP/APPOINTMENTS Follow-up Plan 1. take all medications as prescribed 2. follow up with your PCP in 1-2 weeks. KIRT ROMERO MD Aug 10, 2017 17:01
--- NOTE | 2017-08-10 17:13 | DS ---
Date/Time of Note Date/Time of Note DATE: 08/10/17 TIME: 17:13 Discharge Summary Admission/Discharge Info Admit Date/Time Aug 04, 2017 at 02:07 Discharge Date/Time 08/10/17 Discharge Diagnosis 1. Non-ST elevated PR- stable 2. Uncontrolled diabetes mellitus 3. Syncopal episode, frequent falls 4. Sinusitis 5. Hypertensive urgency 6. Electrolyte derangement 7. History of chronic kidney disease 8. Hypothyroidism Patient Condition: Fair Consults Cardiology- Dr. Gates Nephrology- Dr Gamble Procedures PROCEDURE: Chest. CLINICAL INDICATION: Chest pain. TECHNIQUE: Single frontal view of the chest was obtained. COMPARISON: None. FINDINGS: The cardiac silhouette is enlarged. The aortic arch is calcified. There is no focal consolidation, vascular congestion or pleural effusion. There is no pneumothorax. IMPRESSION: Mild cardiomegaly and aortic atherosclerosis. PROCEDURE: CT Brain without contrast. CLINICAL INDICATION: Headache, syncope TECHNIQUE: A CT of the brain was performed utilizing axial imaging from the skull base through the vertex without intravenous contrast. Multiplanar reformatted images were made.The CTDIvol is 45.01 mGy and the DLP is 720.23 mGycm. One or more the following dose reduction techniques were utilized: Automated exposure control, adjustment of the mA and / or kV according to patient's size, or use of iterative reconstruction technique. DICOM images are available. COMPARISON: None. FINDINGS: There is no intracranial hemorrhage, mass effect, or midline shift. No extra- axial fluid collection is seen. Mild atrophy is identified with compensatory ventricular and sulcal enlargement. Mild to moderate decreased attenuation is seen in the periventricular and deep white matter, compatible with microvascular ischemic disease. The murray white matter differentiation is well preserved with no acute infarct detected. No skull fracture seen. Appearance of fluid in the left sphenoid sinus which could be secondary to acute sinusitis. Arterial calcification. IMPRESSION: 1. No evidence of acute intracranial pathology. 2. Mild diffuse atrophy. 3. There is mild to moderate microvascular ischemic disease in the periventricular and deep white matter. 4. Appearance of fluid in the left sphenoid sinus which could be secondary to acute sinusitis. PROCEDURE: Retroperitoneal US. CLINICAL INDICATION: Renal insufficiency TECHNIQUE: Multiple sonographic images of the kidneys and retroperitoneum were obtained. The images were reviewed on a PACS workstation. COMPARISON: No prior studies are available for comparison. FINDINGS: The kidneys are normal in size, contour, cortical thickness and cortical echogenicity. The right kidney measures 11.4 cm. The left kidney measures 9.8 cm. No kidney stones are visualized. There is no evidence for hydronephrosis. The urinary bladder is normal. RPTAT: AA IMPRESSION: Unremarkable retroperitoneal ultrasound. AMENDMENT: 08/04/2017 8:03:23 AM Ledy Anderson Md In addition to the previously mentioned findings, there does appear to be incidental stenosis of the external carotid arteries with peak systolic velocity on the right of 227 centimeters per second and on the left of 268 cm/ sec. PROCEDURE: Doppler US Carotids. CLINICAL INDICATION: SYNCOPE TECHNIQUE: Multiple sonographic of the carotid bifurcation region and vertebral arteries were obtained utilizing murray scale, duplex and color-flow imaging. The images were reviewed on a PACS workstation. Stenoses were measured using velocity criteria that are extrapolated from diameter data as defined by the Society of Radiologists in Ultrasound Consensus Conference Radiology 2003; 229;340-346. This study does indirectly reference the measurement of the distal ICA diameter as the denominator for stenosis measurement, where measured. COMPARISON: None FINDINGS: Evaluation of the right carotid system shows intimal medial thickening with partially calcified plaque in the carotid bulb and proximal internal carotid artery. No hemodynamically significant stenosis. Evaluation of the left carotid system shows intimal medial thickening with partially calcified plaque in the carotid bulb and proximal internal carotid artery. No hemodynamically significant stenosis. There is antegrade flow within the vertebral arteries bilaterally. RIGHT CAROTID MEASUREMENTS: Common Carotid Artery 85.7 (cm/sec) Internal Carotid Artery - proximal 60.3 (cm/sec) Internal Carotid Artery - mid 68.5 (cm/sec) Internal Carotid Artery - distal 65.8 (cm/sec) Internal Carotid/Common Carotid 0.8 LEFT CAROTID MEASUREMENTS: Common Carotid Artery 97.3 (cm/sec) Internal Carotid Artery - proximal 106.2 (cm/sec) Internal Carotid Artery - mid 95.1 (cm/sec) Internal Carotid Artery - distal 85.7 (cm/sec) Internal Carotid/Common Carotid 1.1 IMPRESSION: Mild atherosclerotic change. No hemodynamically significant stenosis of the common or internal carotid arteries. PROCEDURE: MRI Brain without contrast. CLINICAL INDICATION: Syncope. TECHNIQUE: An MRI of the brain was performed without contrast utilizing the following sequences: Sagittal T1 weighted, sagittal FLAIR, axial T1, axial FLAIR, axial T2 weighted, axial diffusion weighted (EPI technique [id number]), axial ADC mapping. The images were reviewed on a high-resolution PACS workstation. COMPARISON: CT head 08/03/2017 FINDINGS: Diffusion weighted sequences demonstrate no evidence of acute lacunar or lobar infarction. There is no intracranial hemorrhage, extra-axial fluid collection, mass lesion, midline shift or hydrocephalous. There is mild to moderate prominence of the cerebral sulci, lateral and third ventricles. There is moderate patchy and confluent periventricular and subcortical T2 / FLAIR signal hyperintensity, likely related to chronic microangiopathic changes. The brainstem and cerebellum are normal in appearance. The basal cisterns are patent.. Normal flow voids are visible the proximal intracranial arteries and dural sinuses, indicating patency. The midline structures are intact. There is near-complete opacification of the left sphenoid sinus with air-fluid level, suggesting acute sinusitis. There is mild to moderate mucosal thickening in the posterior left maxillary sinus. There is mild mucosal thickening of the bilateral ethmoid air cells. The mastoid air cells and middle ear cavities are normally aerated. The orbits, calvarium and extracranial soft tissues are normal in appearance. IMPRESSION: 1. No acute intracranial abnormality. No intracranial hemorrhage, mass lesion , infarction or hydrocephalous. 2. Mild to moderate peripheral and central cerebral volume loss, within normal limits for age. 3. Moderate patchy and confluent white matter lesions, likely related to chronic microangiopathic changes. 4. Moderate to severe inflammatory changes of the left sphenoid sinus and left maxillary sinus with air-fluid level in the sphenoid sinus, suggesting acute sinusitis. PROCEDURE: Lexiscan myocardial perfusion study CLINICAL INDICATION: 77 -year-old patient complaining of chest pain. TECHNIQUE: Lexiscan 0.4 mg intravenously separate acquisition gated myocardial perfusion SPECT using Tc 99m Myoview approximately 30.0 mCi intravenously at stress and Tc-99m Myoview, approximately 10.0 mCi intravenously at rest was performed using the rest/stress sequence. Poststress Myoview SPECT images were obtained in the supine position. COMPARISON: No prior studies. FINDINGS: Perfusion images reveal no evidence of perfusion defects. Lexiscan post stress gated SPECT images demonstrate no wall motion abnormalities. IMPRESSION: 1. No evidence of perfusion defects. 2. No wall motion abnormalities. 3. The left ventricle ejection fraction at stress is 60%. Hx of Present Illness This is a 77-year-old female with a history of hypertension, dyslipidemia, CKD, hypothyroidism, diabetes who presented to the ER complaining of generalized weakness, dizziness, fall and loss of consciousness. She has been feeling weak , especially the past 3 days also. She also has been feeling dizzy and fell down at least 3 times, the last one occurred while she was taking a shower. She said she hit her head against the wall. The patient may have had one episode where she had brief loss of consciousness when she fell down. No chest pain, but reported occasional shortness of breath. When she presented to the ER, blood pressure was severely elevated at 231/88. Head CT without acute findings, but with a questionable acute sinusitis. First troponin was 0.122 in the second 1 is 0.185. Her blood glucose was greater than 700, WBC 17,000, sodium 127, potassium 5.2, bicarb 22, BUN 54, creatinine 2.13. Initial anion gap was 18 was 1+ ketones in her urine. EKG without ST elevation or depression. Hospital Course Patient was admitted for syncopal workup and cardiology consultation was placed secondary to NSTEMI. Patient was initially admitted to the ICU for management of her hyperglycemia and mild DKA. She was found to have A1c of 12.5% and adjustments were made to her insulin regime to achieve adequate sugar control during her hospitalization. Nephrology was consulted as well for her impaired renal function and renal workup was performed. Renal function improvement with gentle hydration and treatment of urinary tract infection. Renal ultrasound was negative for any obstruction causing CORI. Cardiology adjusted medications to obtain optimal blood pressure control. ECHO performed showed LVEF >70%, severe LVHCT. Lexiscan stress test was negative for any acute ischemic events and no further cardiac work up was warranted. CT head performed was negative for any acute abnormalities following fall with head trauma. Carotid dopplers were negative and MRI showed sinusitis. Patients condition continued to improve with better blood pressure control, glucose control, and improving renal function. Patient was assessed by physical therapy who recommended patient be evaluated for ARU due to ambulatory imbalance and need for further physical therapy prior to returning home. Patients daughter who is a physical therapist agreed for ARU placement and patient was accepted to ARU in stable condition. Home Meds Reported Medications Furosemide* (Furosemide*) 20 Mg Tablet, 20 MG PO DAILY, #60 TAB 08/04/17 Simvastatin* (Zocor*) 40 Mg Tablet, 40 MG PO QHS, #30 TAB 08/04/17 Metoprolol Succinate* (Toprol XL*) 100 Mg Tab.sr.24h, 100 MG PO DAILY, #30 TAB 08/04/17 Clonidine Hcl* (Clonidine Hcl*) 0.3 Mg Tablet, 0.6 MG PO BID, TAB 08/04/17 Follow-up Plan 1. take all medications as prescribed 2. follow up with your PCP in 1-2 weeks. Primary Care Provider Not On Staff Doctor Time spent on discharge: > 30 minutes Pending Labs Laboratory Tests Test 08/09/17 17:34 08/09/17 20:16 08/10/17 01:52 08/10/17 04:29 Bedside Glucose 92mg/dL (70-220) 181mg/dL (70-220) 167mg/dL (70-220) Sodium Level 130mmol/L (135-144) Potassium Level 4.3mmol/L (3.5-5.1) Chloride Level 103mmol/L (97-110) Carbon Dioxide Level 20mmol/L (21-31) Anion Gap 11 (8-16) Blood Urea Nitrogen 45mg/dl (7-20) Creatinine 1.65mg/dl (0.44-1.00) Glucose Level 138mg/dl (70-220) Calcium Level 7.9mg/dl (8.4-10.2) Phosphorus Level 4.5mg/dl (2.5-4.9) Magnesium Level 2.7mg/dl (1.7-2.5) Test 08/10/17 09:17 08/10/17 13:00 Bedside Glucose 127mg/dL (70-220) 130mg/dL (70-220) KIRT ROMERO MD Aug 10, 2017 17:13
[2017-08-10] MEDS: INSULIN GLARGINE [LANtus] 3 ML PEN SC SCH (20:31)
[2017-08-10 20:32] VITALS: BP 160/71; RESP 18
== END 2017-08-10 22:10 | DRG 280 ==
LOC: E/R 20:58 → ICU 08-04 02:07 → TEL 08-05 11:39 → MS1 08-08 15:43
PROVIDERS: ADMIT Internal Medicine; ATTEND Internal Medicine
PROC: C22G1ZZ Tomographic (Tomo) Nuclear Medicine Imaging of Myocardium using Technetium 99m (Tc-99m) (ICD-10-PCS; principal; 2017-08-06)
PROC: 4A02XM4 Measurement of Cardiac Total Activity, External Approach (ICD-10-PCS; 2017-08-06)
PROC: 3E033HZ Introduction of Radioactive Substance into Peripheral Vein, Percutaneous Approach (ICD-10-PCS; 2017-08-06)
DX: I21.4 Non-ST elevation (NSTEMI) myocardial infarction (principal); E11.10 Type 2 diabetes mellitus with ketoacidosis without coma; N17.9 Acute kidney failure, unspecified; E87.1 Hypo-osmolality and hyponatremia; E87.2 Acidosis; I16.0 Hypertensive urgency; E11.22 Type 2 diabetes mellitus with diabetic chronic kidney disease; I12.9 Hypertensive chronic kidney disease with stage 1 through stage 4 chronic kidney disease, or unspecified chronic kidney disease; E03.9 Hypothyroidism, unspecified; E78.5 Hyperlipidemia, unspecified; J01.90 Acute sinusitis, unspecified; D64.9 Anemia, unspecified; M89.9 Disorder of bone, unspecified; E83.9 Disorder of mineral metabolism, unspecified; Z79.4 Long term (current) use of insulin; D72.829 Elevated white blood cell count, unspecified; E83.41 Hypermagnesemia; R55 Syncope and collapse
CPT/HCPCS: 36415; 36600; 70450; 70551; 71010; 76775; 78452; 80048; 80061; 80069; 80076; 81001; 81003; 82043; 82247; 82248; 82550; 82553; 82803; 82962; 83036; 83735; 84100; 84155; 84300; 84443; 84484; 85025; 85610; 85730; 87081; 90686; 92523; 92526; 92610; 93005; 93017; 93306; 93880; 96361; 96372; 96374; 96375; 97110; 97116; 97163; 97530; A9500; A9505; J0360; J0696; J1644; J1815; J1817; J1956; J2270; J2405; J2785; J3480; J7030; J7042

== ENCOUNTER 2017-08-10 18:35 | Inpatient (IN) | payer MEDICARE ==
[~2017-08-10] VITALS: Ht 149.9 cm; Wt 60.0 kg
[~2017-08-10 18:35] MED LIST: CLON0.3T PO; FURO20TA3 PO; METO-336 PO; SIMV40TA2 PO
[2017-08-10 22:00] VITALS: BP 135/61; RESP 18
[2017-08-10 22:35] VITALS: Ht 149.9 cm; Wt 60.0 kg
[2017-08-10] MEDS ORDERED: DEXTROSE 50% 50 ML SYRINGE IV PRN ×2 (23:45)
[2017-08-10] MEDS ORDERED: GLUCOSE GEL 15 GRAM TUBE BUCCAL PRN (23:45)
[2017-08-10] MEDS ORDERED: GLUCAGON 1 MG INJ IM PRN (23:45)
[2017-08-10] MEDS ORDERED: GLUCOSE GEL 15 GRAM TUBE PO PRN ×2 (23:45)
[2017-08-10] MEDS ORDERED: MAGNESIUM HYDROXIDE 30ML CUP PO PRN (23:45)
[2017-08-11 01:30] LABS: ADD UMIC YES; UR ASCORBIC ACID NEGATIVE (NEGATIVE); UR BILIRUBIN (Dip) NEGATIVE (NEGATIVE); UR BLOOD (Dip) NEGATIVE (NEGATIVE); UR BUDDING YEAST FEW /HPF (NONE SEEN); UR CLARITY SLIGHTLY CLOUDY (CLEAR); UR COLOR YELLOW (YELLOW); UR GLUCOSE (Dip) 1+ mg/dL (NEGATIVE); UR KETONES (Dip) NEGATIVE (NEGATIVE); UR LEUKOCYTE ESTERASE (Dip) 1+ Leu/ul (NEGATIVE); UR NITRITE (Dip) NEGATIVE (NEGATIVE); UR NONSQUAMOUS EPITHELIAL CELL 1 /HPF (NONE SEEN); UR RBC 32 /HPF (0-5); UR SPECIFIC GRAVITY (Dip) 1.014 (1.003-1.030); UR SQUAMOUS EPITHELIAL CELL FEW /HPF (FEW); UR TOTAL PROTEIN (Dip) 2+ mg/dl (NEGATIVE); UR UROBILINOGEN (Dip) NEGATIVE (NEGATIVE)
[2017-08-11 02:00] VITALS: BP 141/67; RESP 18
[2017-08-11] MEDS: ACCUCHECK AT 2AM (Patients on SS coverage) XX SCH (02:00)
[2017-08-11] MEDS ORDERED: MAGNESIUM HYDROXIDE 30ML CUP PO PRN (03:30)
[2017-08-11] MEDS ORDERED: LACTULOSE 30ML CUP PO PRN (03:30)
[2017-08-11 06:29] LABS: BASOPHIL # 0.1 10^3/ul (0.0-0.1); BASOPHILS % 0.4 % (0.0-2.0); EOSINOPHILS # 0.1 10^3/ul (0.0-0.5); HEMATOCRIT 29.8 % (37.0-47.0); HEMOGLOBIN 10.2 g/dl (12.0-16.0); LYMPHOCYTES # 2.6 10^3/ul (0.8-2.9); LYMPHOCYTES % 20.3 % (15.0-51.0); MEAN CORPUSCULAR HEMOGLOBIN 28.8 pg (29.0-33.0); MEAN CORPUSCULAR HGB CONC 34.2 g/dl (32.0-37.0); MEAN CORPUSCULAR VOLUME 84.2 fl (82.0-101.0); MEAN PLATELET VOLUME 10.8 fl (7.4-10.4); MONOCYTE # 1.5 10^3/ul (0.3-0.9); MONOCYTES % 11.6 % (0.0-11.0); NEUTROPHIL # 8.1 10^3/ul (1.6-7.5); NEUTROPHILS % 64.7 % (39.0-77.0); PLATELET COUNT 333 10^3/UL (140-415); RED BLOOD COUNT 3.54 10^6/ul (4.20-5.40); RED CELL DISTRIBUTION WIDTH 12.9 % (11.5-14.5); WHITE BLOOD COUNT 12.6 10^3/ul (4.8-10.8)
[2017-08-11] MEDS: LEVOFLOXACIN 250 MG TAB PO SCH (06:51)
[2017-08-11 07:02] LABS: ALBUMIN 2.6 g/dl (3.3-4.9); ALBUMIN/GLOBULIN RATIO 0.83; BILIRUBIN,INDIRECT 0.1 mg/dl (0-1.1); BILIRUBIN,TOTAL 0.1 mg/dl (0.2-1.3); CREATININE 1.89 mg/dl (0.44-1.00); POTASSIUM 4.2 mmol/L (3.5-5.1); TOTAL PROTEIN 5.7 g/dl (6.1-8.1)
[2017-08-11] MEDS: Insulin NOVOLOG SS MILD Algorithm (SS with meals and bedtime) SC SCH ×4 (07:35→21:00)
[2017-08-11 07:58] VITALS: BP 150/70; RESP 18
[2017-08-11] MEDS: INSULIN ASPART [NOVOLOG] 3 ML PEN SC SCH ×3 (08:29→18:05)
[2017-08-11] MEDS: DOCUSATE SODIUM 100 MG CAP PO SCH ×2 (08:30→21:10)
[2017-08-11] MEDS: ASPIRIN (EC) 81 MG TAB PO SCH (08:31)
[2017-08-11] MEDS: AMLODIPINE 5 MG TAB PO SCH ×2 (08:31→21:09)
[2017-08-11] MEDS: SENNA TAB PO SCH ×3 (08:32→21:12)
--- NOTE | 2017-08-11 12:01 | PN ---
DATE: 08/11/2017 SUBJECTIVE: The patient is stable. No events overnight. OBJECTIVE: VITAL SIGNS: Blood pressure is 150/70, temperature 97.9, pulse 68, respiration 18. HEENT: Head is normocephalic. NECK: Supple. HEART: Regular rate. LUNGS: Show diminished breath sounds at base. ABDOMEN: Soft, nontender to palpation. No rebound or guarding. EXTREMITIES: Negative for cyanosis, no edema. DERMATOLOGIC: No rashes. MUSCULOSKELETAL: No joint effusions. NEUROLOGIC: No change in exam. MEDICATIONS: The patient's medications have been reviewed. LABORATORY DATA: Showed sodium 133, potassium 4.2, BUN , creatinine 1.89, white count 12.6, he moglobin 10.2, platelet count is 33. ASSESSMENT AND PLAN: 1. Nonoliguric acute kidney injury on top of chronic kidney disease with unknown baseline creatinin e. Etiology is secondary to hemodynamics, possible tubular injury. Patient's renal function appear s to be stabilizing, although continues to fluctuate between creatinine 1.6 to 1.8 mg/dL. At this p oint, would continue current treatment plan, supportive care, renally dose all meds. 2. Hyponatremia secondary to acute kidney injury causing decreased free water urinary excretion. S odium levels have been improving. Continue to monitor. Continue to limit free water intake. 3. Metabolic acidosis secondary to acute kidney injury, improving. Continue to monitor. 4. Anemia. Monitor hemoglobin and hematocrit levels. Will give Epogen as needed. 5. Mineral bone disorder. Continue to monitor calcium and phosphorus levels. 6. Non-ST elevation myocardial infarction. Continue medical management. 7. Diabetes. Continue Accu-Cheks and insulin sliding scale. 8. Hypertension. Continue current blood pressure regimen. 9. Hypothyroidism. Continue Synthroid. Dictated By: DENTON VILLA DO NR/NTS Conf#: [id number] DID#: [id number] CC: GREGORY ELIZABETH MD;*EndCC*
--- NOTE | 2017-08-11 12:29 | CONS ---
Date/Time of Note Date/Time of Note DATE: 08/11/17 TIME: 12:22 Assessment/Plan Assessment/Plan Chief Complaint/Hosp Course 77-year-old female with NSTEMI, status post DKA, transferred to acute rehabilitation unit for further physical therapy. 1. Status post non-ST elevated SD. -Status post cardiology evaluation and recommended medical management with ASA/ statin/BB 2. Poorly controlled type 2 diabetes with last known A1c 12.2. -Accu-Cheks/ISS/Lantus/pre-meal. 3. Nonoliguric CORI on CKD. -Nephrology following. Monitor renal function. 4. Hyponatremia. Improving. -Follow-up with nephrology recommendations. 5. Anemia of chronic kidney disease. -H&H stable. Will monitor. 6. Essential hypertension. -Continue antihypertensives. 7. Hypothyroidism. -On Synthroid. 8.UTI -On treatment with Levaquin x 5days 9. Blurry vision/dizziness, likely vestibular in etiology. Patient had negative workup for intracranial or acute cardiac ischemic events. -We will monitor. We will also consider meclizine. -Patient may also have possible diabetic retinopathy. Patient would benefit from outpatient ENT/ophthalmology evaluation. DVT prophylaxis: Ambulation/SCDs while in bed. Approximately 60 minutes was spent on this consultation. Patient was seen in collaboration with . Problems: Consultation Date/Type/Reason Admit Date/Time Aug 10, 2017 at 22:23 Type of Consultation: Internal medicine Reason for Consultation Medical management Hx of Present Illness This is a 77-year-old female with a past medical history hypertension, dyslipidemia, chronic kidney disease, type 2 diabetes, hypothyroidism, who was admitted at [facility] for syncopal workup and was found to have NSTEMI. Patient had cardiac workup including Lexiscan stress test which was negative for any acute ischemic events. Patient was also treated for mild DKA and hypoglycemia. She also had nephrology evaluation for CORI on CKD. Patient was then evaluated by physical therapy and recommended further rehabilitation at acute rehabilitation unit and was transferred to ARU for further comprehensive interdisciplinary physical therapy and rehab. Patient continued to have dizziness and bilateral blurry vision. Dizziness gets worse with position changes and physical therapy. Patient denied chest pain, palpitation, shortness of breath, nausea, vomiting, abdominal pain, or other constitutional symptoms. Past Medical History See HPI Past Surgical History See HPI Social History Patient denies any history of alcohol, smoking or illicit drug use. Smoking Status: Never smoker Exam/Review of Systems Vital Signs Vitals Vital Signs Date Time Temp Pulse Resp B/P Pulse Ox O2 Delivery O2 Flow Rate FiO2 08/11/17 07:58 97.9 68 18 150/70 94 Intake and Output 08/10/17 08/10/17 08/11/17 14:59 22:59 06:59 Intake Total 200 ml Output Total 750 ml Balance -550 ml Exam General: Elderly female, not in any acute distress . HEENT: Normocephalic, Atraumatic, No laceration or hematoma; Eyes: PEERL, Conjunctiva clear, Anicteric sclera Neck: Supple without any lymphadenopathy, nontender, no JVD, no carotid bruits, trachea midline, no thyromegaly Cardiac: S1, S2 auscultated, regular rhythm and rate, no mumurs or gallop Pulmonary: Normal respiratory effort. Chest clear to auscultation bilaterally, no adventitious breath sounds GI: Abdomen normal to inspection. Soft, non tender, non- distended, no masses, no rebound tenderness or guarding. Bowel sounds active on all four quadrants Genitourinary: Deferred Extremities: No cyanosis, clubbing, or edema. Pulses [2+] bilaterally. Full ROM on all four extremities. No focal weakness appreciated. Neurologic: Alert to person, place, time, and situation. Affect appropriate, intact sensation. Skin: Clean,dry, and intact. No ecchymosis, no rashes, or lesions Results Result Diagram: 08/11/17 0608 08/11/17 0608 Results 24 hrs Laboratory Tests Test 08/10/17 23:00 08/11/17 06:08 Urine Color YELLOW Urine Clarity SLIGHTLY CLOUDY A Urine pH 5.0 Urine Specific [place] 1.014 Urine Ketones NEGATIVE Urine Nitrite NEGATIVE Urine Bilirubin NEGATIVE Urine Urobilinogen NEGATIVE Urine Leukocyte Esterase 1+ H Urine Microscopic RBC 32 H Urine Microscopic WBC 33 H Urine Squamous Epithelial Cells FEW Urine Yeast (Budding) FEW A Urine Hemoglobin NEGATIVE Urine Glucose 1+ H Urine Total Protein 2+ H White Blood Count 12.6 H Red Blood Count 3.54 L Hemoglobin 10.2 L Hematocrit 29.8 L Mean Corpuscular Volume 84.2 Mean Corpuscular Hemoglobin 28.8 L Mean Corpuscular Hemoglobin Concent 34.2 Red Cell Distribution Width 12.9 Platelet Count 333 Mean Platelet Volume 10.8 H Neutrophils % 64.7 Lymphocytes % 20.3 Monocytes % 11.6 H Eosinophils % 1.0 Basophils % 0.4 Nucleated Red Blood Cells % 0.0 Neutrophils # 8.1 H Lymphocytes # 2.6 Monocytes # 1.5 H Eosinophils # 0.1 Basophils # 0.1 Nucleated Red Blood Cells # 0.0 Sodium Level 133 L Potassium Level 4.2 Chloride Level 103 Carbon Dioxide Level 22 Anion Gap 12 Blood Urea Nitrogen 42 H Creatinine 1.89 H Glucose Level 93 # Calcium Level 8.0 L Total Bilirubin 0.1 L Direct Bilirubin 0.00 Indirect Bilirubin 0.1 Aspartate Amino Transf (AST/SGOT) 99 H Alanine Aminotransferase (ALT/SGPT) 96 H Alkaline Phosphatase 67 Total Protein 5.7 L Albumin 2.6 L Globulin 3.10 Albumin/Globulin Ratio 0.83 Medications Medications Current Medications Amlodipine Besylate (Norvasc) 5 mg BID PO Last administered on 08/11/17 08:31 ; Admin Dose 5 MG; Start 08/11/17 at 09:00 Aspirin (Halfprin) 81 mg DAILY PO Last administered on 08/11/17 08:31; Admin Dose 81 MG; Start 08/11/17 at 09:00 Atorvastatin Calcium (Lipitor) 20 mg DAILY@21 PO ; Start 08/11/17 at 21:00 Clonidine (Catapres) 0.1 mg TID PRN PO ELEVATED BLOOD PRESSURE; Start at 23:45 Miscellaneous Information (*Order Clarification Bulletin) MEDICATION REQUIRES CLARIFICATI... Q8H XX ; Start 08/10/17 at 23:45 Miscellaneous Information 1 ea NOTE XX ; Start 08/10/17 at 23:45 Glucose (Glutose) 15 gm Q15M PRN PO DECREASED GLUCOSE; Start 08/10/17 at 23:45 Glucose (Glutose) 22.5 gm Q15M PRN PO DECREASED GLUCOSE; Start 08/10/17 at 23: 45 Dextrose (D50w Syringe) 25 ml Q15M PRN IV DECREASED GLUCOSE; Start 08/10/17 at 23:45 Dextrose (D50w Syringe) 50 ml Q15M PRN IV DECREASED GLUCOSE; Start 08/10/17 at 23:45 Glucagon (Glucagen) 1 mg Q15M PRN IM DECREASED GLUCOSE; Start 08/10/17 at 23: 45 Glucose (Glutose) 15 gm Q15M PRN BUCCAL DECREASED GLUCOSE; Start 08/10/17 at 23:45 Diagnostic Test (Pha) (Accu-Chek) 1 ea 02 XX ; Start 08/11/17 at 02:00 Carvedilol (Coreg) 25 mg BID PO Last administered on 08/11/17 08:31; Admin Dose 25 MG; Start 08/11/17 at 09:00 Senna (Senokot) 2 tab BID PO Last administered on 08/11/17 08:32; Admin Dose 2 TAB; Start 08/11/17 at 09:00 Insulin Glargine (Lantus) 24 unit DAILY@20 SC ; Start 08/11/17 at 20:00 Levofloxacin (Levaquin) 250 mg DAILY@06 PO Last administered on 08/11/17 06: 51; Admin Dose 250 MG; Start 08/11/17 at 06:00; Stop 08/12/17 at 06:01 Magnesium Hydroxide (Milk Of Mag) 30 ml DAILY PRN PO CONSTIPATION; Start 08/10 at 23:45 Hydralazine HCl (Apresoline) 50 mg TID PO Last administered on 08/11/17 08:30 ; Admin Dose 50 MG; Start 08/11/17 at 09:00 Docusate Sodium (Colace) 100 mg BID PO Last administered on 08/11/17 08:30; Admin Dose 100 MG; Start 08/11/17 at 09:00 Senna (Senokot) 1 tab HS PO ; Start 08/11/17 at 21:00 Acetaminophen (Tylenol Tab) 650 mg Q4H PRN PO PAIN; Start 08/11/17 at 03:30 Magnesium Hydroxide (Milk Of Mag) 30 ml BID PRN PO CONSTIPATION; Start at 03:30 Lactulose (Enulose) 20 gm DAILY PRN PO CONSTIPATION; Start 08/11/17 at 03:30 Betamethasone/ Clotrimazole (Lotrisone Cr) 1 applic BID PRN TOP PRURITUS; Start 08/11/17 at 11:00 DARRICK MANNING NP Aug 11, 2017 12:29
--- NOTE | 2017-08-11 12:48 | CONS ---
DATE OF ADMISSION: 08/10/2017 DATE OF CONSULTATION: 08/11/2017 Rehabilitation Post Admission Physician Evaluation REHABILITATION IMPAIRMENT CATEGORY: Debility secondary to non-ST elevation [place] and syncope with possible blunt head trauma. ACTIVE COMORBIDITIES: 1. Dysphagia. 2. Acute on chronic kidney disease. 3. Diabetes mellitus, status post mild DKA. 4. Status post syncope. 5. Sinusitis. 6. Acute on chronic kidney disease. 7. Hypothyroidism. 8. Impairments in self-care, mobility, and mild cognitive impairments. HISTORY OF PRESENT ILLNESS: The patient is a pleasant 77-year-old female with a history of hypertension, chronic kidney disease, hypothyroidism, and diabetes mellitus who was admitted with generalized weakness and a fall with loss of consciousness. The patient reportedly struck her head against the wall. The patient was noted to have significant hypertension with systolic blood pressure of 200, in addition evidence of a non-ST elevation OK. The patient has been placed on mechanical soft diet and per family reports this is new for the patient in addition to patient with notable cognitive impairments as compared to baseline. The patient also with significant impairments in self-care and mobility as compared to baseline, and has been cleared to transfer to the rehabilitation unit for comprehensive interdisciplinary rehab care. FUNCTIONAL HISTORY: Prior to recent events, she was independent in self-care tasks and mobility. Currently, the patient requires moderate to minimal assist for self-care and mobility tasks. I have reviewed the preadmission screen and the patient's current functional status is consistent with the preadmission screen. SOCIAL HISTORY: The patient lives at home in a second floor apartment without elevator access. She does hope to return home upon discharge. PAST MEDICAL HISTORY: 1. 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 2. Diabetes mellitus. 3. Hyperlipidemia. 4. Hypertension. 5. Chronic kidney disease. 6. Hypothyroidism. 7. Hyperlipidemia. CURRENT MEDICATIONS: 1. Norvasc 5 mg p.o. b.i.d. 2. Aspirin 81 mg p.o. daily. 3. Zocor 40 mg p.o. at bedtime. 4. Coreg 25 mg p.o. b.i.d. 5. Catapres p.r.n. 6. Insulin sliding scale. 7. Apresoline 50 mg p.o. t.i.d. 8. Lantus 24 units subQ daily. 9. Levaquin 250 p.o. daily. 10. Senokot 2 tabs b.i.d. ALLERGIES: PENICILLIN. PHYSICAL EXAMINATION: VITAL SIGNS: The patient is currently afebrile with stable vital signs. HEENT: Extraocular motions are intact. Oropharynx clear. NECK: Supple. LUNGS: Clear anteriorly. CARDIAC: S1, S2. ABDOMEN: Soft, nontender, positive bowel sounds. NEUROLOGIC: She is awake and alert. She is oriented to person and hospital. She will follow simple 1-step commands. She demonstrates antigravity strength in the left upper and bilateral lower extremity. She has notable decreased forward flexion and abduction in the right upper extremity, but good distal mmi teacher strength. She does have impaired dynamic balance. PLAN: The patient has been admitted for comprehensive interdisciplinary acute rehab and is anticipated to tolerate 3 hours of daily therapy in divided doses for at least 5/7 days a week. The treatment plan will include: 1. Physical therapy to focus on bed mobility, transfers, and household ambulation with the goal of having the patient reach a standby assist level. 2. Occupational therapy to focus on hygiene, grooming, dressing, bathing, and toileting activities with the goal of having the patient reach a standby assist level. 3. Speech therapy for full cognitive assessment and retraining in addition to dysphagia management with the goal of having the patient return to a regular diet and return to baseline cognition. 4. Neuropsychology for full cognitive assessment and assistance with adjustment to disease process. REHABILITATION BARRIER: Dysphagia. INTERVENTION FOR BARRIER: Speech therapy. ESTIMATED LENGTH OF STAY: 10 days. DISPOSITION GOAL: Home. I acknowledge that I performed a full physical examination on this patient within 24 hours of admission to the rehabilitation unit. I believe the patient is a good candidate for comprehensive interdisciplinary rehab care and is anticipated to make reasonable goals in a reasonable period of time as outlined above. Dictated By: GREGORY DOS SANTOS/CLARENCE Conf#: [id number] DID#: [id number] MTDD
[2017-08-11 14:00] VITALS: BP 123/60; RESP 20
[2017-08-11] MEDS: ACETAMINOPHEN 325 MG TAB PO PRN (14:28)
[2017-08-11 20:00] VITALS: BP 148/65; RESP 18
[2017-08-11] MEDS ORDERED: INSULIN GLARGINE [LANtus] 3 ML PEN SC SCH (20:00)
[2017-08-11] MEDS: ATORVASTATIN 20 MG TAB PO SCH (21:09)
[2017-08-11 21:12] VITALS: BP 151/70; PULSE 73
--- NOTE | 2017-08-11 22:46 | CONS ---
DATE OF ADMISSION: 08/10/2017 DATE OF CONSULTATION: 08/11/2017 TYPE OF CONSULTATION: Psychological. REFERRING PHYSICIAN: Gregory Dempsey MD CONSULTING PSYCHOLOGIST: Bre Pablo, PhD REASON FOR CONSULTATION: This consultation was requested by Dr. Meena Dempsey in order to evaluate the cognitive and emotional functioning of this patient related to her present medical condition. HISTORY OF PRESENT ILLNESS: The patient is a 77-year-old female. She is used to being very indepen dent. The patient had a fall in the bathtub and was unable to get out. The patient may have hit he r head. The patient is upset that she is now having some medical problems as a result of the fall. The patient does have numerous other medical problems, including type 2 diabetes, hyperlipidemia, h ypertension, chronic kidney disease, and hypothyroidism. The patient's daughter was present part of the time and is a physical therapist who lives in [place]. The patient's daughter reports that the patient does not follow her diabetic diet and does not take care of her diabetes or her blood press ure. May have led to her being lightheaded and falling. The patient is motivated to get better, do es want to return home to her previous living situation and be as independent as she can be. FAMILY AND SOCIAL HISTORY: The patient lives with her youngest daughter and her grandson. The chantelle ent's daughter actually contacts the other daughter who is a physical therapist in [place] because h er mom does not follow medical advice. The patient does want to return home, but it is important th at she be informed of how important it is for her to follow the medical recommendations. MEDICATIONS: The patient is currently not on any psychotropic medications. SUBSTANCE USE: The patient denies any use of alcohol or other drugs. The patient reports that she does not smoke. MENTAL STATUS EXAMINATION: APPEARANCE: The patient was seen in her wheelchair. She is of average height and weight. The chantelle ent wears glasses. BEHAVIOR: The patient was cooperative during the consultation. The patient did attempt to answer a ll questions presented to her by the interviewer. The patient was painting a much better picture of her functioning and her ability to care for herself than her daughter did. MOOD AND AFFECT: The patient's mood appears to be slightly depressed. Affect does appear to be sli ghtly anxious. PERCEPTION: The patient reports no hallucinations or delusions. The patient was alert to person, p lace, situation and time. MEMORY AND COGNITION: The patient's memory and cognition are basically intact. The patient does odell ve some minor gaps. The patient was able to name the hospital. The patient was able to name the [facility] and the year. The patient was able say who the bowling alley refinisher is, the governor of the state, and the mayor of the city. The patient was able to spell "world" backwards. The chantelle ent was unable to do serial 7 subtractions from 100. Her first answer in subtracting 7 from 100 was 73. I tried this 2 times, and the patient came up with the same answer. There are some slight gap s at times, and the patient does try to cover these up. INTELLIGENCE: Intelligence appears to fall in the average range. INSIGHT: Poor. JUDGMENT: Fair. THOUGHT CONTENT: The patient is concerned about her present medical condition. The patient does wa nt to return home and be as independent as she can be. The patient is aware that she fell and does not want to have this happen again. The patient reports that she is restless, anxious and depressed because of what happened to her and does not want it to happen again. DISCUSSION: The patient can likely benefit from some cognitive/behavioral psychotherapy while she i s on the unit. This psychotherapy would focus on her underlying level of depression and anxiety. 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 Thank you very much, Dr. Meena Dempsey, for referring this individual. Please do not hesitate to ca ll if you have any additional questions. Dictated By: BRE PABLO PHD LESA/CLARENCE Conf#: [id number] DID#: [id number] CC: GREGORY DEMPSEY MD;*EndCC*
[2017-08-12 01:57] VITALS: BP 130/68; RESP 18
[2017-08-12] MEDS: ACCUCHECK AT 2AM (Patients on SS coverage) XX SCH (02:00)
[2017-08-12] MEDS: LEVOFLOXACIN 250 MG TAB PO SCH (05:59)
[2017-08-12 07:30] VITALS: BP 155/70; RESP 18
[2017-08-12] MEDS: ASPIRIN (EC) 81 MG TAB PO SCH (08:35)
[2017-08-12] MEDS: AMLODIPINE 5 MG TAB PO SCH ×2 (08:35→20:14)
[2017-08-12] MEDS: Insulin NOVOLOG SS MILD Algorithm (SS with meals and bedtime) SC SCH ×4 (08:37→20:17)
[2017-08-12] MEDS: INSULIN ASPART [NOVOLOG] 3 ML PEN SC SCH (08:38)
[2017-08-12] MEDS: SENNA TAB PO SCH ×3 (09:00→20:16)
[2017-08-12] MEDS: DOCUSATE SODIUM 100 MG CAP PO SCH ×2 (09:00→20:16)
--- NOTE | 2017-08-12 10:11 | CONS ---
Date/Time of Note Date/Time of Note DATE: 08/12/17 TIME: 10:07 Consult Date/Type/Reason Admit Date/Time Aug 10, 2017 at 22:23 Initial Consult Date Type of Consultation: Internal medicine Subjective Comfortable Objective pulm-cta mod assist Vital Signs Date Time Temp Pulse Resp B/P Pulse Ox O2 Delivery O2 Flow Rate FiO2 08/12/17 07:30 98.8 70 18 155/70 95 Intake and Output 08/11/17 08/11/17 08/12/17 15:00 23:00 07:00 Intake Total 840 ml 700 ml Output Total 300 ml Balance 540 ml 700 ml Results/Medications Result Diagram: 08/11/17 0608 08/11/17 0608 Results 24 hrs Laboratory Tests Test 08/11/17 17:58 08/11/17 21:08 08/12/17 08:25 Bedside Glucose 77 142 142 Medications Current Medications Amlodipine Besylate (Norvasc) 5 mg BID PO Last administered on 08/12/17 08:35 ; Admin Dose 5 MG; Start 08/11/17 at 09:00 Aspirin (Halfprin) 81 mg DAILY PO Last administered on 08/12/17 08:35; Admin Dose 81 MG; Start 08/11/17 at 09:00 Atorvastatin Calcium (Lipitor) 20 mg DAILY@21 PO Last administered on 21:09; Admin Dose 20 MG; Start 08/11/17 at 21:00 Clonidine (Catapres) 0.1 mg TID PRN PO ELEVATED BLOOD PRESSURE; Start at 23:45 Miscellaneous Information (*Order Clarification Bulletin) MEDICATION REQUIRES CLARIFICATI... Q8H XX ; Start 08/10/17 at 23:45 Miscellaneous Information 1 ea NOTE XX ; Start 08/10/17 at 23:45 Glucose (Glutose) 15 gm Q15M PRN PO DECREASED GLUCOSE; Start 08/10/17 at 23:45 Glucose (Glutose) 22.5 gm Q15M PRN PO DECREASED GLUCOSE; Start 08/10/17 at 23: 45 Dextrose (D50w Syringe) 25 ml Q15M PRN IV DECREASED GLUCOSE; Start 08/10/17 at 23:45 Dextrose (D50w Syringe) 50 ml Q15M PRN IV DECREASED GLUCOSE; Start 08/10/17 at 23:45 Glucagon (Glucagen) 1 mg Q15M PRN IM DECREASED GLUCOSE; Start 08/10/17 at 23: 45 Glucose (Glutose) 15 gm Q15M PRN BUCCAL DECREASED GLUCOSE; Start 08/10/17 at 23:45 Diagnostic Test (Pha) (Accu-Chek) 1 ea 02 XX ; Start 08/11/17 at 02:00 Carvedilol (Coreg) 25 mg BID PO Last administered on 08/12/17 08:36; Admin Dose 25 MG; Start 08/11/17 at 09:00 Senna (Senokot) 2 tab BID PO Last administered on 08/11/17 21:12; Admin Dose 2 TAB; Start 08/11/17 at 09:00 Insulin Glargine (Lantus) 24 unit DAILY@20 SC Last administered on 08/11/17 21:33; Admin Dose 24 UNIT; Start 08/11/17 at 20:00 Magnesium Hydroxide (Milk Of Mag) 30 ml DAILY PRN PO CONSTIPATION; Start 08/10 at 23:45 Hydralazine HCl (Apresoline) 50 mg TID PO Last administered on 08/12/17 08:35 ; Admin Dose 50 MG; Start 08/11/17 at 09:00 Docusate Sodium (Colace) 100 mg BID PO Last administered on 08/11/17 21:10; Admin Dose 100 MG; Start 08/11/17 at 09:00 Senna (Senokot) 1 tab HS PO ; Start 08/11/17 at 21:00 Acetaminophen (Tylenol Tab) 650 mg Q4H PRN PO PAIN Last administered on 14:28; Admin Dose 650 MG; Start 08/11/17 at 03:30 Magnesium Hydroxide (Milk Of Mag) 30 ml BID PRN PO CONSTIPATION; Start at 03:30 Lactulose (Enulose) 20 gm DAILY PRN PO CONSTIPATION; Start 08/11/17 at 03:30 Betamethasone/ Clotrimazole (Lotrisone Cr) 1 applic BID PRN TOP PRURITUS; Start 08/11/17 at 11:00 Assessment/Plan Additional Assessment/Plan Rehab- Debility secondary to non-ST elevation [place] and syncope with possible blunt head trauma. Activities as tolerated Dysphagia- speech to eval on Wednesday. Continue current diet Acute on chronic kidney disease. Diabetes mellitus, status post mild DKA. Status post syncope. Sinusitis. Acute on chronic kidney disease. Hypothyroidism. GREGORY ELIZABETH MD Aug 12, 2017 10:11
--- NOTE | 2017-08-12 10:55 | CONS ---
Date/Time of Note Date/Time of Note DATE: 08/12/17 TIME: 10:53 Assessment/Plan Assessment/Plan Chief Complaint/Hosp Course 77-year-old female with NSTEMI, status post DKA, transferred to acute rehabilitation unit for further physical therapy. 1. Status post non-ST elevated [place]. -Status post cardiology evaluation and recommended medical management with ASA/ statin/BB 2. Poorly controlled type 2 diabetes with last known A1c 12.2. With too tight control. -Accu-Cheks/ISS. De-escalate Lantus and DC pre-meal insulin. 3. Nonoliguric CORI on CKD. -Nephrology following. Monitor renal function. 4. Hyponatremia. Improving. -Follow-up with nephrology recommendations. 5. Anemia of chronic kidney disease. -H&H stable. Will monitor. 6. Essential hypertension. -Continue antihypertensives. 7. Hypothyroidism. -On Synthroid. 8. Status post UTI -Status post treatment. 9. Bilateral blurry vision/dizziness, likely vestibular etiology. Patient had negative workup for acute intracranial/iliac ischemic events. -We will try meclizine trial. --Patient may also have possible diabetic retinopathy. Patient would benefit from outpatient ENT/ophthalmology. DVT prophylaxis: Ambulation/SCDs while in bed. Patient was seen in collaboration with . Problems: Consultation Date/Type/Reason Admit Date/Time Aug 10, 2017 at 22:23 Initial Consult Date Type of Consultation: Internal medicine 24 HR Interval Summary Free Text/Dictation Patient complains of dizziness, bilateral blurry vision. Exam/Review of Systems Vital Signs Vitals Vital Signs Date Time Temp Pulse Resp B/P Pulse Ox O2 Delivery O2 Flow Rate FiO2 08/12/17 07:30 98.8 70 18 155/70 95 Intake and Output 08/11/17 08/11/17 08/12/17 15:00 23:00 07:00 Intake Total 840 ml 700 ml Output Total 300 ml Balance 540 ml 700 ml Exam General: Elderly female, not in any acute distress . HEENT: Normocephalic, Atraumatic, No laceration or hematoma; Eyes: PEERL, Conjunctiva clear, Anicteric sclera Neck: Supple without any lymphadenopathy, nontender, no JVD, no carotid bruits, trachea midline, no thyromegaly Cardiac: S1, S2 auscultated, regular rhythm and rate, no mumurs or gallop Pulmonary: Normal respiratory effort. Chest clear to auscultation bilaterally, no adventitious breath sounds GI: Abdomen normal to inspection. Soft, non tender, non- distended, no masses, no rebound tenderness or guarding. Bowel sounds active on all four quadrants Genitourinary: Deferred Extremities: No cyanosis, clubbing, or edema. Pulses [2+] bilaterally. Full ROM on all four extremities. No focal weakness appreciated. Neurologic: Alert to person, place, time, and situation. Affect appropriate, intact sensation. Skin: Clean,dry, and intact. No ecchymosis, no rashes, or lesions Results Result Diagram: 08/11/17 0608 08/11/17 06 Results 24 hrs Laboratory Tests Test 08/11/17 17:58 08/11/17 21:08 08/12/17 08:25 Bedside Glucose 77 142 142 Medications Medications Current Medications Amlodipine Besylate (Norvasc) 5 mg BID PO Last administered on 08/12/17 08:35 ; Admin Dose 5 MG; Start 08/11/17 at 09:00 Aspirin (Halfprin) 81 mg DAILY PO Last administered on 08/12/17 08:35; Admin Dose 81 MG; Start 08/11/17 at 09:00 Atorvastatin Calcium (Lipitor) 20 mg DAILY@21 PO Last administered on 21:09; Admin Dose 20 MG; Start 08/11/17 at 21:00 Clonidine (Catapres) 0.1 mg TID PRN PO ELEVATED BLOOD PRESSURE; Start at 23:45 Miscellaneous Information (*Order Clarification Bulletin) MEDICATION REQUIRES CLARIFICATI... Q8H XX ; Start 08/10/17 at 23:45 Miscellaneous Information 1 ea NOTE XX ; Start 08/10/17 at 23:45 Glucose (Glutose) 15 gm Q15M PRN PO DECREASED GLUCOSE; Start 08/10/17 at 23:45 Glucose (Glutose) 22.5 gm Q15M PRN PO DECREASED GLUCOSE; Start 08/10/17 at 23: 45 Dextrose (D50w Syringe) 25 ml Q15M PRN IV DECREASED GLUCOSE; Start 08/10/17 at 23:45 Dextrose (D50w Syringe) 50 ml Q15M PRN IV DECREASED GLUCOSE; Start 08/10/17 at 23:45 Glucagon (Glucagen) 1 mg Q15M PRN IM DECREASED GLUCOSE; Start 08/10/17 at 23: 45 Glucose (Glutose) 15 gm Q15M PRN BUCCAL DECREASED GLUCOSE; Start 08/10/17 at 23:45 Diagnostic Test (Pha) (Accu-Chek) 1 ea 02 XX ; Start 08/11/17 at 02:00 Carvedilol (Coreg) 25 mg BID PO Last administered on 08/12/17 08:36; Admin Dose 25 MG; Start 08/11/17 at 09:00 Senna (Senokot) 2 tab BID PO Last administered on 08/11/17 21:12; Admin Dose 2 TAB; Start 08/11/17 at 09:00 Insulin Glargine (Lantus) 24 unit DAILY@20 SC Last administered on 08/11/17 21:33; Admin Dose 24 UNIT; Start 08/11/17 at 20:00 Magnesium Hydroxide (Milk Of Mag) 30 ml DAILY PRN PO CONSTIPATION; Start 08/10 at 23:45 Hydralazine HCl (Apresoline) 50 mg TID PO Last administered on 08/12/17 08:35 ; Admin Dose 50 MG; Start 08/11/17 at 09:00 Docusate Sodium (Colace) 100 mg BID PO Last administered on 08/11/17 21:10; Admin Dose 100 MG; Start 08/11/17 at 09:00 Senna (Senokot) 1 tab HS PO ; Start 08/11/17 at 21:00 Acetaminophen (Tylenol Tab) 650 mg Q4H PRN PO PAIN Last administered on 14:28; Admin Dose 650 MG; Start 08/11/17 at 03:30 Magnesium Hydroxide (Milk Of Mag) 30 ml BID PRN PO CONSTIPATION; Start at 03:30 Lactulose (Enulose) 20 gm DAILY PRN PO CONSTIPATION; Start 08/11/17 at 03:30 Betamethasone/ Clotrimazole (Lotrisone Cr) 1 applic BID PRN TOP PRURITUS; Start 08/11/17 at 11:00 DARRICK MANNING NP Aug 12, 2017 10:55
[2017-08-12] MEDS: MECLIZINE 12.5 MG TAB PO SCH ×2 (12:39→20:14)
[2017-08-12 14:00] VITALS: BP 127/58; RESP 20
--- NOTE | 2017-08-12 16:55 | PN ---
DATE: 08/12/2017 SUBJECTIVE: The patient is stable, no events overnight. OBJECTIVE: VITAL SIGNS: Blood pressure is 155/70, pulse 70, respiration 18, temperature 98.8. HEENT: Head is normocephalic. NECK: Supple. HEART: Regular rate. LUNGS: Show diminished breath sounds at the base. ABDOMEN: Soft, nontender to palpation. No rebound or guarding. EXTREMITIES: Negative for clubbing, cyanosis, no edema. DERMATOLOGIC: No rashes. MUSCULOSKELETAL: No joint effusions. NEUROLOGIC: No change in exam. MEDICATIONS: The patient's medications have been reviewed. LABORATORY DATA: Laboratory data from 08/11/2017 was reviewed. Laboratory data from 08/12/2017 is pending. ASSESSMENT AND PLAN: 1. Nonoliguric acute kidney injury on top of chronic kidney disease with unknown baseline creatinin e. Etiology of CORI is secondary to hemodynamics. Renal function appears to be stabilizing between creatinine of 1.5 to 2.0 mg/dL. At this point, continue current treatment plan, supportive care and renally dose all meds. 2. Hyponatremia secondary to acute kidney injury causing decreased free water urinary excretion. T he patient's sodium levels have been improving. Continue to monitor. 3. Metabolic acidosis secondary to acute kidney injury, improving. Continue to monitor. 4. Anemia. Monitor H and H levels. We'll give Epogen as needed. 5. Mineral bone disorder. Continue to monitor calcium and phosphorus levels. 6. Non-ST elevation myocardial infarction. Continue medical management. 7. Diabetes. Continue current insulin regimen. 8. Hypertension. Continue current blood pressure regimen. 9. Hypothyroidism. Continue Synthroid. Dictated By: DENTON VILLA DO NR/NTS Conf#: [id number] DID#: [id number] CC: DENTON VILLA DO;*EndCC*
[2017-08-12 20:00] VITALS: BP 152/72; RESP 18
[2017-08-12] MEDS: INSULIN GLARGINE [LANtus] 3 ML PEN SC SCH (20:14)
[2017-08-12] MEDS: ATORVASTATIN 20 MG TAB PO SCH (20:15)
[2017-08-13 02:00] VITALS: BP 128/62; RESP 18
[2017-08-13] MEDS: ACCUCHECK AT 2AM (Patients on SS coverage) XX SCH (02:00)
[2017-08-13 07:30] VITALS: BP 133/62; RESP 18
[2017-08-13 07:35] LABS: CREATININE 1.57 mg/dl (0.44-1.00); MAGNESIUM 2.3 mg/dl (1.7-2.5); POTASSIUM 4.4 mmol/L (3.5-5.1)
[2017-08-13] MEDS: Insulin NOVOLOG SS MILD Algorithm (SS with meals and bedtime) SC SCH ×4 (07:35→20:58)
[2017-08-13] MEDS: AMLODIPINE 5 MG TAB PO SCH ×2 (08:25→20:53)
[2017-08-13] MEDS: ASPIRIN (EC) 81 MG TAB PO SCH (08:26)
[2017-08-13] MEDS: MECLIZINE 12.5 MG TAB PO SCH ×3 (08:26→20:53)
[2017-08-13] MEDS: ACETAMINOPHEN 325 MG TAB PO PRN ×2 (08:26→13:07)
[2017-08-13] MEDS: DOCUSATE SODIUM 100 MG CAP PO SCH ×2 (09:00→20:44)
[2017-08-13] MEDS: SENNA TAB PO SCH ×3 (09:00→20:45)
--- NOTE | 2017-08-13 09:20 | CONS ---
Date/Time of Note Date/Time of Note DATE: 08/13/17 TIME: 09:18 Assessment/Plan Assessment/Plan Chief Complaint/Hosp Course 77-year-old female with NSTEMI, status post DKA, transferred to acute rehabilitation unit for further physical therapy. 1. Status post non-ST elevated [place]. -Status post cardiology evaluation and recommended medical management with ASA/ statin/BB 2. Poorly controlled type 2 diabetes with last known A1c 12.2. Now with stable glycemic trends. -Continue with Accu-Cheks/ISS/Lantus. 3. Nonoliguric CORI on CKD. Renal function stabilizing. -Nephrology following. Will monitor renal function. 4. Hyponatremia. Improving. -Follow-up with nephrology recommendations. 5. Anemia of chronic kidney disease. -H&H stable. Will monitor. 6. Essential hypertension. -Continue antihypertensives. 7. Hypothyroidism. -On Synthroid. 8. Status post UTI -Status post treatment. 9. Bilateral blurry vision/dizziness, likely vestibular etiology. Patient had negative workup for acute intracranial/iliac ischemic events. -Improved with meclizine. --Patient may also have possible diabetic retinopathy. Patient would benefit from outpatient ENT/ophthalmology. DVT prophylaxis: Ambulation/SCDs while in bed. Patient was seen in collaboration with . Problems: Consultation Date/Type/Reason Admit Date/Time Aug 10, 2017 at 22:23 Type of Consultation: Internal medicine 24 HR Interval Summary Free Text/Dictation Patient is doing very well. She did not have any further dizziness after starting on meclizine. Exam/Review of Systems Vital Signs Vitals Vital Signs Date Time Temp Pulse Resp B/P Pulse Ox O2 Delivery O2 Flow Rate FiO2 08/13/17 02:00 98.8 75 18 128/62 97 Intake and Output 08/12/17 08/12/17 08/13/17 15:00 23:00 07:00 Intake Total 420 ml 1100 ml Balance 420 ml 1100 ml Exam General: Elderly female, not in any acute distress . HEENT: Normocephalic, Atraumatic, No laceration or hematoma; Eyes: PEERL, Conjunctiva clear, Anicteric sclera Neck: Supple without any lymphadenopathy, nontender, no JVD, no carotid bruits, trachea midline, no thyromegaly Cardiac: S1, S2 auscultated, regular rhythm and rate, no mumurs or gallop Pulmonary: Normal respiratory effort. Chest clear to auscultation bilaterally, no adventitious breath sounds GI: Abdomen normal to inspection. Soft, non tender, non- distended, no masses, no rebound tenderness or guarding. Bowel sounds active on all four quadrants Genitourinary: Deferred Extremities: No cyanosis, clubbing, or edema. Pulses [2+] bilaterally. Full ROM on all four extremities. No focal weakness appreciated. Neurologic: Alert to person, place, time, and situation. Affect appropriate, intact sensation. Skin: Clean,dry, and intact. No ecchymosis, no rashes, or lesions Results Result Diagram: 08/11/17 0608 08/13/17 0618 Results 24 hrs Laboratory Tests Test 08/12/17 11:59 08/12/17 12:18 08/12/17 17:12 08/12/17 20:13 Bedside Glucose 60 L 93 129 148 Test 08/13/17 06:18 08/13/17 07:46 Sodium Level 135 Potassium Level 4.4 Chloride Level 106 Carbon Dioxide Level 21 Anion Gap 12 Blood Urea Nitrogen 41 H Creatinine 1.57 H Glucose Level 102 Calcium Level 8.0 L Phosphorus Level 4.0 Magnesium Level 2.3 Bedside Glucose 131 Medications Medications Current Medications Amlodipine Besylate (Norvasc) 5 mg BID PO Last administered on 08/13/17 08:25 ; Admin Dose 5 MG; Start 08/11/17 at 09:00 Aspirin (Halfprin) 81 mg DAILY PO Last administered on 08/13/17 08:26; Admin Dose 81 MG; Start 08/11/17 at 09:00 Atorvastatin Calcium (Lipitor) 20 mg DAILY@21 PO Last administered on 20:15; Admin Dose 20 MG; Start 08/11/17 at 21:00 Clonidine (Catapres) 0.1 mg TID PRN PO ELEVATED BLOOD PRESSURE; Start at 23:45 Miscellaneous Information 1 ea NOTE XX ; Start 08/10/17 at 23:45 Glucose (Glutose) 15 gm Q15M PRN PO DECREASED GLUCOSE; Start 08/10/17 at 23:45 Glucose (Glutose) 22.5 gm Q15M PRN PO DECREASED GLUCOSE; Start 08/10/17 at 23: 45 Dextrose (D50w Syringe) 25 ml Q15M PRN IV DECREASED GLUCOSE; Start 08/10/17 at 23:45 Dextrose (D50w Syringe) 50 ml Q15M PRN IV DECREASED GLUCOSE; Start 08/10/17 at 23:45 Glucagon (Glucagen) 1 mg Q15M PRN IM DECREASED GLUCOSE; Start 08/10/17 at 23: 45 Glucose (Glutose) 15 gm Q15M PRN BUCCAL DECREASED GLUCOSE; Start 08/10/17 at 23:45 Diagnostic Test (Pha) (Accu-Chek) 1 ea 02 XX ; Start 08/11/17 at 02:00 Carvedilol (Coreg) 25 mg BID PO Last administered on 08/13/17 08:25; Admin Dose 25 MG; Start 08/11/17 at 09:00 Senna (Senokot) 2 tab BID PO Last administered on 08/11/17 21:12; Admin Dose 2 TAB; Start 08/11/17 at 09:00 Magnesium Hydroxide (Milk Of Mag) 30 ml DAILY PRN PO CONSTIPATION; Start 08/10 at 23:45 Hydralazine HCl (Apresoline) 50 mg TID PO Last administered on 08/13/17 08:25 ; Admin Dose 50 MG; Start 08/11/17 at 09:00 Docusate Sodium (Colace) 100 mg BID PO Last administered on 08/11/17 21:10; Admin Dose 100 MG; Start 08/11/17 at 09:00 Senna (Senokot) 1 tab HS PO ; Start 08/11/17 at 21:00 Acetaminophen (Tylenol Tab) 650 mg Q4H PRN PO PAIN Last administered on 08:26; Admin Dose 650 MG; Start 08/11/17 at 03:30 Magnesium Hydroxide (Milk Of Mag) 30 ml BID PRN PO CONSTIPATION; Start at 03:30 Lactulose (Enulose) 20 gm DAILY PRN PO CONSTIPATION; Start 08/11/17 at 03:30 Betamethasone/ Clotrimazole (Lotrisone Cr) 1 applic BID PRN TOP PRURITUS; Start 08/11/17 at 11:00 Meclizine HCl (Antivert) 12.5 mg TID PO Last administered on 08/13/17 08:26; Admin Dose 12.5 MG; Start 08/12/17 at 13:00 Insulin Glargine (Lantus) 16 unit DAILY@20 SC Last administered on 08/12/17t 20:14; Admin Dose 16 UNIT; Start 08/12/17 at 20:00 DARRICK MANNING NP Aug 13, 2017 09:20 DARRICK MANNING NP Aug 13, 2017 09:20
--- NOTE | 2017-08-13 10:48 | CONS ---
Date/Time of Note Date/Time of Note DATE: 08/13/17 TIME: 10:46 Consult Date/Type/Reason Admit Date/Time Aug 10, 2017 at 22:23 Type of Consultation: Internal medicine Subjective Patient comfortable Objective following commands mod assist 50 feet Vital Signs Date Time Temp Pulse Resp B/P Pulse Ox O2 Delivery O2 Flow Rate FiO2 08/13/17 07:30 97.9 62 18 133/62 97 Intake and Output 08/12/17 08/12/17 08/13/17 15:00 23:00 07:00 Intake Total 420 ml 1100 ml Balance 420 ml 1100 ml Results/Medications Result Diagram: 08/11/17 0608 08/13/17 0618 Results 24 hrs Laboratory Tests Test 08/12/17 11:59 08/12/17 12:18 08/12/17 17:12 08/12/17 20:13 Bedside Glucose 60 L 93 129 148 Test 08/13/17 06:18 08/13/17 07:46 Sodium Level 135 Potassium Level 4.4 Chloride Level 106 Carbon Dioxide Level 21 Anion Gap 12 Blood Urea Nitrogen 41 H Creatinine 1.57 H Glucose Level 102 Calcium Level 8.0 L Phosphorus Level 4.0 Magnesium Level 2.3 Bedside Glucose 131 Medications Current Medications Amlodipine Besylate (Norvasc) 5 mg BID PO Last administered on 08/13/17 08:25 ; Admin Dose 5 MG; Start 08/11/17 at 09:00 Aspirin (Halfprin) 81 mg DAILY PO Last administered on 08/13/17 08:26; Admin Dose 81 MG; Start 08/11/17 at 09:00 Atorvastatin Calcium (Lipitor) 20 mg DAILY@21 PO Last administered on 20:15; Admin Dose 20 MG; Start 08/11/17 at 21:00 Clonidine (Catapres) 0.1 mg TID PRN PO ELEVATED BLOOD PRESSURE; Start at 23:45 Miscellaneous Information 1 ea NOTE XX ; Start 08/10/17 at 23:45 Glucose (Glutose) 15 gm Q15M PRN PO DECREASED GLUCOSE; Start 08/10/17 at 23:45 Glucose (Glutose) 22.5 gm Q15M PRN PO DECREASED GLUCOSE; Start 08/10/17 at 23: 45 Dextrose (D50w Syringe) 25 ml Q15M PRN IV DECREASED GLUCOSE; Start 08/10/17 at 23:45 Dextrose (D50w Syringe) 50 ml Q15M PRN IV DECREASED GLUCOSE; Start 08/10/17 at 23:45 Glucagon (Glucagen) 1 mg Q15M PRN IM DECREASED GLUCOSE; Start 08/10/17 at 23: 45 Glucose (Glutose) 15 gm Q15M PRN BUCCAL DECREASED GLUCOSE; Start 08/10/17 at 23:45 Diagnostic Test (Pha) (Accu-Chek) 1 ea 02 XX ; Start 08/11/17 at 02:00 Carvedilol (Coreg) 25 mg BID PO Last administered on 08/13/17 08:25; Admin Dose 25 MG; Start 08/11/17 at 09:00 Senna (Senokot) 2 tab BID PO Last administered on 08/11/17 21:12; Admin Dose 2 TAB; Start 08/11/17 at 09:00 Magnesium Hydroxide (Milk Of Mag) 30 ml DAILY PRN PO CONSTIPATION; Start 08/10 at 23:45 Hydralazine HCl (Apresoline) 50 mg TID PO Last administered on 08/13/17 08:25 ; Admin Dose 50 MG; Start 08/11/17 at 09:00 Docusate Sodium (Colace) 100 mg BID PO Last administered on 08/11/17 21:10; Admin Dose 100 MG; Start 08/11/17 at 09:00 Senna (Senokot) 1 tab HS PO ; Start 08/11/17 at 21:00 Acetaminophen (Tylenol Tab) 650 mg Q4H PRN PO PAIN Last administered on 08:26; Admin Dose 650 MG; Start 08/11/17 at 03:30 Magnesium Hydroxide (Milk Of Mag) 30 ml BID PRN PO CONSTIPATION; Start at 03:30 Lactulose (Enulose) 20 gm DAILY PRN PO CONSTIPATION; Start 08/11/17 at 03:30 Betamethasone/ Clotrimazole (Lotrisone Cr) 1 applic BID PRN TOP PRURITUS; Start 08/11/17 at 11:00 Meclizine HCl (Antivert) 12.5 mg TID PO Last administered on 08/13/17 08:26; Admin Dose 12.5 MG; Start 08/12/17 at 13:00 Insulin Glargine (Lantus) 16 unit DAILY@20 SC Last administered on 08/12/17t 20:14; Admin Dose 16 UNIT; Start 08/12/17 at 20:00 Assessment/Plan Additional Assessment/Plan Rehab- Debility secondary to non-ST elevation [place] and syncope with possible blunt head trauma. Progressing with rehab treatment plan Dysphagia- Continue current diet Acute on chronic kidney disease. Diabetes mellitus, status post mild DKA. Status post syncope. Sinusitis. Acute on chronic kidney disease. Hypothyroidism. GREGORY ELIZABETH MD Aug 13, 2017 10:48
--- NOTE | 2017-08-13 11:57 | PN ---
DATE: 08/13/2017 SUBJECTIVE: The patient is stable. No events overnight. No fevers, chills, nausea, vomiting. OBJECTIVE: VITAL SIGNS: Blood pressure is 128/62, respiration 18, pulse 75, temperature 98.8. HEENT: Head is normocephalic. NECK: Supple. HEART: Regular rate. LUNGS: Show diminished breath sounds at the base. ABDOMEN: Soft, nontender to palpation without rebound or guarding. EXTREMITIES: Negative for clubbing, cyanosis, no edema. DERMATOLOGIC: No rashes. MUSCULOSKELETAL: No joint effusions. NEUROLOGIC: No change in exam. MEDICATIONS: The patient's medications have been reviewed. LABORATORY DATA: From 08/13/2017 shows sodium 135, potassium 4.4, BUN 21, creatinine 1.57. ASSESSMENT AND PLAN: 1. Nonoliguric acute kidney injury on top of chronic kidney disease with unknown baseline creatinin e. Etiology of acute kidney injury is secondary to hemodynamics. Renal function appears to have st abilized. Creatinine 1.5 to 2.0 mg/dL. At this point, will continue current treatment plan, suppor tive care, renally dose all medicines. 2. Hyponatremia secondary to acute kidney injury, resolved. Continue free water restriction. 3. Metabolic acidosis secondary to acute kidney injury, resolved. 4. Anemia. Monitor hemoglobin and hematocrit levels. 5. Mineral bone disorder. Monitor calcium and phosphorus levels. 6. Status post non-ST elevation myocardial infarction. Continue medical management. 7. Diabetes. Continue current insulin regimen. 8. Hypertension. Continue current blood pressure regimen. 9. Hypothyroidism. Continue Synthroid. Dictated By: DENTON MCCORMACK/CLARENCE Conf#: [id number] DID#: [id number]
[2017-08-13 14:00] VITALS: BP 135/68; RESP 20
[2017-08-13 20:00] VITALS: BP 114/71; RESP 18
[2017-08-13] MEDS: ATORVASTATIN 20 MG TAB PO SCH (20:53)
[2017-08-13] MEDS: INSULIN GLARGINE [LANtus] 3 ML PEN SC SCH (20:58)
[2017-08-13 23:45] VITALS: BP 113/60; PULSE 90; RESP 18
[2017-08-14 02:00] VITALS: BP 132/65; RESP 18
[2017-08-14] MEDS: ACCUCHECK AT 2AM (Patients on SS coverage) XX SCH (02:00)
[2017-08-14] MEDS: Insulin NOVOLOG SS MILD Algorithm (SS with meals and bedtime) SC SCH ×4 (07:35→20:09)
[2017-08-14 08:00] VITALS: BP 136/63; RESP 18
[2017-08-14] MEDS: MECLIZINE 12.5 MG TAB PO SCH ×3 (08:29→20:00)
[2017-08-14] MEDS: AMLODIPINE 5 MG TAB PO SCH (08:30)
[2017-08-14] MEDS: ASPIRIN (EC) 81 MG TAB PO SCH (08:30)
[2017-08-14] MEDS: DOCUSATE SODIUM 100 MG CAP PO SCH ×2 (08:32→20:01)
[2017-08-14] MEDS: SENNA TAB PO SCH ×3 (09:00→20:02)
--- NOTE | 2017-08-14 10:52 | CONS ---
Date/Time of Note Date/Time of Note DATE: 08/14/17 TIME: 10:51 Consult Date/Type/Reason Admit Date/Time Aug 10, 2017 at 22:23 Type of Consultation: Internal medicine Subjective reports feeling better Objective pulm-cta min assist 100 feet Vital Signs Date Time Temp Pulse Resp B/P Pulse Ox O2 Delivery O2 Flow Rate FiO2 08/14/17 08:00 97.6 64 18 136/63 96 Intake and Output 08/13/17 08/13/17 08/14/17 15:00 23:00 07:00 Intake Total 420 ml 850 ml Output Total 500 ml Balance 420 ml 350 ml Results/Medications Result Diagram: 08/11/17 0608 08/13/17 0618 Results 24 hrs Laboratory Tests Test 08/13/17 11:43 08/13/17 17:14 08/13/17 20:51 08/14/17 07:50 Bedside Glucose 126 123 149 93 Medications Current Medications Amlodipine Besylate (Norvasc) 5 mg BID PO Last administered on 08/14/17 08:30 ; Admin Dose 5 MG; Start 08/11/17 at 09:00 Aspirin (Halfprin) 81 mg DAILY PO Last administered on 08/14/17 08:30; Admin Dose 81 MG; Start 08/11/17 at 09:00 Atorvastatin Calcium (Lipitor) 20 mg DAILY@21 PO Last administered on 20:53; Admin Dose 20 MG; Start 08/11/17 at 21:00 Clonidine (Catapres) 0.1 mg TID PRN PO ELEVATED BLOOD PRESSURE; Start at 23:45 Miscellaneous Information 1 ea NOTE XX ; Start 08/10/17 at 23:45 Glucose (Glutose) 15 gm Q15M PRN PO DECREASED GLUCOSE; Start 08/10/17 at 23:45 Glucose (Glutose) 22.5 gm Q15M PRN PO DECREASED GLUCOSE; Start 08/10/17 at 23: 45 Dextrose (D50w Syringe) 25 ml Q15M PRN IV DECREASED GLUCOSE; Start 08/10/17 at 23:45 Dextrose (D50w Syringe) 50 ml Q15M PRN IV DECREASED GLUCOSE; Start 08/10/17 at 23:45 Glucagon (Glucagen) 1 mg Q15M PRN IM DECREASED GLUCOSE; Start 08/10/17 at 23: 45 Glucose (Glutose) 15 gm Q15M PRN BUCCAL DECREASED GLUCOSE; Start 08/10/17 at 23:45 Diagnostic Test (Pha) (Accu-Chek) 1 ea 02 XX ; Start 08/11/17 at 02:00 Carvedilol (Coreg) 25 mg BID PO Last administered on 08/14/17 08:30; Admin Dose 25 MG; Start 08/11/17 at 09:00 Senna (Senokot) 2 tab BID PO Last administered on 08/11/17 21:12; Admin Dose 2 TAB; Start 08/11/17 at 09:00 Magnesium Hydroxide (Milk Of Mag) 30 ml DAILY PRN PO CONSTIPATION; Start 08/10 at 23:45 Hydralazine HCl (Apresoline) 50 mg TID PO Last administered on 08/14/17 08:29 ; Admin Dose 50 MG; Start 08/11/17 at 09:00 Docusate Sodium (Colace) 100 mg BID PO Last administered on 08/11/17 21:10; Admin Dose 100 MG; Start 08/11/17 at 09:00 Senna (Senokot) 1 tab HS PO ; Start 08/11/17 at 21:00 Acetaminophen (Tylenol Tab) 650 mg Q4H PRN PO PAIN Last administered on 13:07; Admin Dose 650 MG; Start 08/11/17 at 03:30 Magnesium Hydroxide (Milk Of Mag) 30 ml BID PRN PO CONSTIPATION; Start at 03:30 Lactulose (Enulose) 20 gm DAILY PRN PO CONSTIPATION; Start 08/11/17 at 03:30 Betamethasone/ Clotrimazole (Lotrisone Cr) 1 applic BID PRN TOP PRURITUS; Start 08/11/17 at 11:00 Meclizine HCl (Antivert) 12.5 mg TID PO Last administered on 08/14/17 08:29; Admin Dose 12.5 MG; Start 08/12/17 at 13:00 Insulin Glargine (Lantus) 16 unit DAILY@20 SC Last administered on 08/13/17 20:58; Admin Dose 16 UNIT; Start 08/12/17 at 20:00 Assessment/Plan Additional Assessment/Plan Rehab- Debility secondary to non-ST elevation [place] and syncope with possible blunt head trauma. Overall steady progress, continue current plan Dysphagia- Continue current diet Acute on chronic kidney disease. Diabetes mellitus, status post mild DKA. Status post syncope. Sinusitis. Acute on chronic kidney disease. Hypothyroidism. GREGORY ELIZABETH MD Aug 14, 2017 10:52
--- NOTE | 2017-08-14 11:23 | PN ---
Date/Time of Note Date/Time of Note DATE: 08/14/17 TIME: 11:20 Assessment/Plan VTE Prophylaxis VTE Prophylaxis Intervention: other Lines/Catheters IV Catheter Type (from [facility]): Saline Lock Urinary Cath still in place: No Assessment/Plan Problems: (1) Diabetes mellitus type 2 in nonobese Status: Chronic Comment: Patient's blood sugar control on the current inpatient regimen in a controlled setting is actually good. I believe that her A1c which was 12.2 on initial admission will probably be on its way down. Please note it is not yet equilibrated (2) Diastolic dysfunction Status: Chronic Comment: She is on appropriate treatment using beta-blockade. She is tolerating this without complication. Given the diastolic dysfunction less happy using high-dose dihydropyridine calcium channel justice. We will adjust this dose downward and increase the hydralazine. She may be a candidate for an A2 receptor justice versus an BRENT inhibitor. That decision made after we have had 20 for urinary collections (3) Essential hypertension Status: Chronic Comment: Adjusting medications present adequate control (4) Acquired hypothyroidism Status: Chronic Comment: Noted. Euthyroid on admission (5) Hyperlipidemia associated with type 2 diabetes mellitus Status: Chronic Comment: On statin therapy (6) Chronic kidney disease, stage III (moderate) Status: Chronic Comment: Please note she had acute kidney injury on top of chronic kidney disease at time of admission. She actually looks a little bit prerenal at this time. We did go ahead and do a 24-hour urine for total protein and creatinine clearance to help delineate further. She may be appropriate to add in an BRENT inhibitor versus an angiotensin II receptor justice Subjective 24 Hr Interval Summary Free Text/Dictation Patient actively involved in physical therapy Constitutional: no complaints Respiratory: no complaints Cardiovascular: no complaints Exam/Review of Systems Vital Signs Vitals Vital Signs Date Time Temp Pulse Resp B/P Pulse Ox O2 Delivery O2 Flow Rate FiO2 08/14/17 08:00 97.6 64 18 136/63 96 Intake and Output 08/13/17 08/13/17 08/14/17 15:00 23:00 07:00 Intake Total 420 ml 850 ml Output Total 500 ml Balance 420 ml 350 ml Exam Constitutional: alert, oriented Respiratory: clear to auscultation, normal air movement Cardiovascular: S4, nl pulses, regular rate and rhythm Gastrointestinal: nl liver, spleen, non-tender, soft Results Result Diagram: 08/11/1708 08/13/17 0618 Results 24 hrs Laboratory Tests Test 08/13/17 11:43 08/13/17 17:14 08/13/17 20:51 08/14/17 07:50 Bedside Glucose 126 123 149 93 Medications Medications Current Medications Aspirin (Halfprin) 81 mg DAILY PO Last administered on 08/14/17 08:30; Admin Dose 81 MG; Start 08/11/17 at 09:00 Atorvastatin Calcium (Lipitor) 20 mg DAILY@21 PO Last administered on 20:53; Admin Dose 20 MG; Start 08/11/17 at 21:00 Clonidine (Catapres) 0.1 mg TID PRN PO ELEVATED BLOOD PRESSURE; Start at 23:45 Miscellaneous Information 1 ea NOTE XX ; Start 08/10/17 at 23:45 Glucose (Glutose) 15 gm Q15M PRN PO DECREASED GLUCOSE; Start 08/10/17 at 23:45 Glucose (Glutose) 22.5 gm Q15M PRN PO DECREASED GLUCOSE; Start 08/10/17 at 23: 45 Dextrose (D50w Syringe) 25 ml Q15M PRN IV DECREASED GLUCOSE; Start 08/10/17 at 23:45 Dextrose (D50w Syringe) 50 ml Q15M PRN IV DECREASED GLUCOSE; Start 08/10/17 at 23:45 Glucagon (Glucagen) 1 mg Q15M PRN IM DECREASED GLUCOSE; Start 08/10/17 at 23: 45 Glucose (Glutose) 15 gm Q15M PRN BUCCAL DECREASED GLUCOSE; Start 08/10/17 at 23:45 Diagnostic Test (Pha) (Accu-Chek) 1 ea 02 XX ; Start 08/11/17 at 02:00 Carvedilol (Coreg) 25 mg BID PO Last administered on 08/14/17 08:30; Admin Dose 25 MG; Start 08/11/17 at 09:00 Senna (Senokot) 2 tab BID PO Last administered on 08/11/17 21:12; Admin Dose 2 TAB; Start 08/11/17 at 09:00 Magnesium Hydroxide (Milk Of Mag) 30 ml DAILY PRN PO CONSTIPATION; Start 08/10 at 23:45 Docusate Sodium (Colace) 100 mg BID PO Last administered on 08/11/17 21:10; Admin Dose 100 MG; Start 08/11/17 at 09:00 Senna (Senokot) 1 tab HS PO ; Start 08/11/17 at 21:00 Acetaminophen (Tylenol Tab) 650 mg Q4H PRN PO PAIN Last administered on 13:07; Admin Dose 650 MG; Start 08/11/17 at 03:30 Magnesium Hydroxide (Milk Of Mag) 30 ml BID PRN PO CONSTIPATION; Start at 03:30 Lactulose (Enulose) 20 gm DAILY PRN PO CONSTIPATION; Start 08/11/17 at 03:30 Betamethasone/ Clotrimazole (Lotrisone Cr) 1 applic BID PRN TOP PRURITUS; Start 08/11/17 at 11:00 Meclizine HCl (Antivert) 12.5 mg TID PO Last administered on 08/14/17 08:29; Admin Dose 12.5 MG; Start 08/12/17 at 13:00 Insulin Glargine (Lantus) 16 unit DAILY@20 SC Last administered on 08/13/17 20:58; Admin Dose 16 UNIT; Start 08/12/17 at 20:00 Amlodipine Besylate (Norvasc) 5 mg QAM PO ; Start 08/15/17 at 09:00; Status UNV Hydralazine HCl (Apresoline) 100 mg BID PO ; Start 08/14/17 at 21:00; Status UNV Fluconazole (Diflucan) 400 mg ONCE ONCE PO ; Start 08/14/17 at 11:30; Stop at 11:31; Status UNV CELIO YAN MD Aug 14, 2017 11:23
[2017-08-14] MEDS ORDERED: FLUCONAZOLE 200 MG TAB PO ONE (11:30)
--- NOTE | 2017-08-14 15:25 | PN ---
DATE: 08/14/2017 SUBJECTIVE: The patient is stable. No events overnight. No fevers, chills, nausea, vomiting. OBJECTIVE: VITAL SIGNS: Blood pressure is 132/65, respiration 18, pulse 70, temperature 98.3. HEENT: Head is normocephalic. NECK: Supple. HEART: Regular rate. LUNGS: Show diminished breath sounds at base. ABDOMEN: Soft, nontender to palpation. No rebound or guarding. EXTREMITIES: Negative for clubbing, cyanosis, edema. DERMATOLOGIC: No rashes. MUSCULOSKELETAL: No joint effusions. NEUROLOGIC: No change in exam. MEDICATIONS: Have been reviewed. LABORATORY DATA: Has been reviewed. ASSESSMENT AND PLAN: 1. Nonoliguric acute kidney injury on top of chronic kidney disease with unknown baseline creatinin e. Etiology secondary to hemodynamics. Renal function appears to be stabilizing, with creatinine o f 1.5 to 2 mg/dL. Continue current treatment plan, supportive care, renally dose all meds. 2. Hyponatremia, resolved. 3. Metabolic acidosis, resolved. 4. Anemia. Monitor hemoglobin and hematocrit levels. 5. Mineral bone disorder. Monitor calcium and phosphorus levels. 6. Diabetes. Continue current insulin regimen. 7. Hypertension. Continue current blood pressure regimen. Dictated By: DENTON VILLA DO NR/NTS Conf#: [id number] DID#: [id number] CC: GREGORY ELIZABETH MD;*EndCC*
[2017-08-14] MEDS: BETAMETHASONE/CLOTRIMAZOLE 15 GM CR TOP PRN (16:27)
[2017-08-14 19:55] VITALS: BP 160/71; PULSE 65; RESP 18
[2017-08-14] MEDS: ATORVASTATIN 20 MG TAB PO SCH (20:01)
[2017-08-14] MEDS: INSULIN GLARGINE [LANtus] 3 ML PEN SC SCH (20:08)
[2017-08-15 02:00] VITALS: BP 138/72; PULSE 71; RESP 18
[2017-08-15] MEDS: ACCUCHECK AT 2AM (Patients on SS coverage) XX SCH (02:00)
[2017-08-15 07:00] VITALS: BP 153/67; RESP 18
[2017-08-15] MEDS: Insulin NOVOLOG SS MILD Algorithm (SS with meals and bedtime) SC SCH ×4 (07:35→20:27)
[2017-08-15] MEDS: MECLIZINE 12.5 MG TAB PO SCH ×3 (08:20→20:25)
[2017-08-15] MEDS: ASPIRIN (EC) 81 MG TAB PO SCH (08:21)
[2017-08-15] MEDS: DOCUSATE SODIUM 100 MG CAP PO SCH ×3 (08:21→20:53)
[2017-08-15] MEDS: BETAMETHASONE/CLOTRIMAZOLE 15 GM CR TOP PRN (08:24)
[2017-08-15] MEDS: SENNA TAB PO SCH ×4 (08:27→20:52)
[2017-08-15] MEDS ORDERED: AMLODIPINE 5 MG TAB PO SCH (09:00)
[2017-08-15 14:00] VITALS: BP 127/51; RESP 18
--- NOTE | 2017-08-15 14:02 | PN ---
Date/Time of Note Date/Time of Note DATE: 08/15/17 TIME: 14:00 Assessment/Plan VTE Prophylaxis VTE Prophylaxis Intervention: SCD's Lines/Catheters [facility] Saline Lock Urinary Cath still in place: No Assessment/Plan Problems: (1) Diabetes mellitus type 2 in nonobese Status: Chronic Comment: Blood sugar control is much more stable. Continue with the adjustments. (2) Chronic kidney disease, stage III (moderate) Status: Chronic Comment: She is stable place. I think it would be appropriate here to give the attempt to retry with an A2 receptor justice drug and get rid of the amlodipine. (3) Hyperlipidemia associated with type 2 diabetes mellitus Status: Chronic Comment: Continue statin therapy (4) Diastolic dysfunction Status: Chronic Comment: She is on full dose beta-blockade. This combined with an A2 receptor justice and hydralazine should do well for her (5) Acquired hypothyroidism Status: Chronic Comment: Noted. Euthyroid at present (6) Essential hypertension Status: Chronic Comment: Adjusting regimen Subjective 24 Hr Interval Summary Free Text/Dictation Patient lying in bed. She reports her sugars are fluctuating but a much more narrow range. Constitutional: no complaints (No fevers chills or sweats) Respiratory: no complaints Cardiovascular: no complaints Gastrointestinal: no complaints Genitourinary: no complaints Exam/Review of Systems Vital Signs Vitals Vital Signs Date Time Temp Pulse Resp B/P Pulse Ox O2 Delivery O2 Flow Rate FiO2 08/15/17 07:00 98.3 59 18 153/67 95 Intake and Output 08/14/17 08/14/17 08/15/17 14:59 22:59 06:59 Intake Total 500 ml 300 ml Output Total 400 ml 480 ml Balance 100 ml -180 ml Exam Constitutional: alert, oriented Neck: non-tender, supple Respiratory: clear to auscultation, normal air movement Cardiovascular: nl pulses, regular rate and rhythm Results Result Diagram: 08/11/17 0608 08/13/17 0618 Results 24 hrs Laboratory Tests Test 08/14/17 17:17 08/14/17 17:18 08/14/17 19:51 08/15/17 03:15 Bedside Glucose 154 131 188 123 Test 08/15/17 07:35 08/15/17 11:52 08/15/17 12:08 Bedside Glucose 105 223 H 203 Medications Medications Current Medications Aspirin (Halfprin) 81 mg DAILY PO Last administered on 08/15/17 08:21; Admin Dose 81 MG; Start 08/11/17 at 09:00 Atorvastatin Calcium (Lipitor) 20 mg DAILY@21 PO Last administered on 20:01; Admin Dose 20 MG; Start 08/11/17 at 21:00 Clonidine (Catapres) 0.1 mg TID PRN PO ELEVATED BLOOD PRESSURE; Start at 23:45 Miscellaneous Information 1 ea NOTE XX ; Start 08/10/17 at 23:45 Glucose (Glutose) 15 gm Q15M PRN PO DECREASED GLUCOSE; Start 08/10/17 at 23:45 Glucose (Glutose) 22.5 gm Q15M PRN PO DECREASED GLUCOSE; Start 08/10/17 at 23: 45 Dextrose (D50w Syringe) 25 ml Q15M PRN IV DECREASED GLUCOSE; Start 08/10/17 at 23:45 Dextrose (D50w Syringe) 50 ml Q15M PRN IV DECREASED GLUCOSE; Start 08/10/17 at 23:45 Glucagon (Glucagen) 1 mg Q15M PRN IM DECREASED GLUCOSE; Start 08/10/17 at 23: 45 Glucose (Glutose) 15 gm Q15M PRN BUCCAL DECREASED GLUCOSE; Start 08/10/17 at 23:45 Diagnostic Test (Pha) (Accu-Chek) 1 ea 02 XX Last administered on 08/15/17 02 :00; Admin Dose 1 EA; Start 08/11/17 at 02:00 Carvedilol (Coreg) 25 mg BID PO Last administered on 08/15/17 08:21; Admin Dose 25 MG; Start 08/11/17 at 09:00 Senna (Senokot) 2 tab BID PO Last administered on 08/11/17 21:12; Admin Dose 2 TAB; Start 08/11/17 at 09:00 Docusate Sodium (Colace) 100 mg BID PO Last administered on 08/15/17 08:21; Admin Dose 100 MG; Start 08/11/17 at 09:00 Senna (Senokot) 1 tab HS PO ; Start 08/11/17 at 21:00 Acetaminophen (Tylenol Tab) 650 mg Q4H PRN PO PAIN Last administered on 12/15/ 17at 13:07; Admin Dose 650 MG; Start 08/11/17 at 03:30 Magnesium Hydroxide (Milk Of Mag) 30 ml BID PRN PO CONSTIPATION; Start at 03:30 Lactulose (Enulose) 20 gm DAILY PRN PO CONSTIPATION; Start 08/11/17 at 03:30 Betamethasone/ Clotrimazole (Lotrisone Cr) 1 applic BID PRN TOP PRURITUS Last administered on 08/15/17 08:24; Admin Dose 1 APPLIC; Start 08/11/17 at 11:00 Meclizine HCl (Antivert) 12.5 mg TID PO Last administered on 08/15/17 12:13; Admin Dose 12.5 MG; Start 08/12/17 at 13:00 Insulin Glargine (Lantus) 16 unit DAILY@20 SC Last administered on 08/14/17 20:08; Admin Dose 16 UNIT; Start 08/12/17 at 20:00 Amlodipine Besylate (Norvasc) 5 mg QAM PO Last administered on 08/15/17 08:22 ; Admin Dose 5 MG; Start 08/15/17 at 09:00 Hydralazine HCl (Apresoline) 100 mg BID PO Last administered on 08/15/17 08: 21; Admin Dose 100 MG; Start 08/14/17 at 21:00 CELIO YAN MD Aug 15, 2017 14:02
--- NOTE | 2017-08-15 14:36 | PN ---
DATE: 08/15/2017 SUBJECTIVE: The patient is stable. No events overnight. OBJECTIVE: VITAL SIGNS: Blood pressure is 136/68, respiration 18, pulse 64, temperature 97.6. HEENT: Head is normocephalic. NECK: Supple. HEART: Regular rate. LUNGS: Show diminished breath sounds at the base. ABDOMEN: Soft, nontender to palpation. No rebound or guarding. EXTREMITIES: Negative for clubbing, cyanosis, no edema. DERMATOLOGIC: No rashes. MUSCULOSKELETAL: No joint effusions. NEUROLOGIC: No change in exam. MEDICATIONS: The patient's medications have been reviewed. LABORATORY DATA: Has been reviewed. No new labs. ASSESSMENT AND PLAN: 1. Nonoliguric acute kidney injury on top of chronic kidney disease with unknown baseline creatinin e. Etiology is secondary to hemodynamics. Renal function appears to have stabilized. Continue cre atinine of 1.5 to 2.0 mg/dL. Will continue current treatment plan, supportive care, renally dose al l meds. 2. Hypertension. Blood pressure remains elevated. Renal function appears to have stabilized, okay to start BRENT inhibitors. 3. Anemia. Monitor hemoglobin and hematocrit levels. 4. Mineral bone disorder, monitor calcium and phosphorus levels. 5. Diabetes. Continue current insulin regimen. 6. Hyponatremia, resolved. 7. Metabolic acidosis, resolved. Dictated By: DENTON MCCORMACK/NTS Conf#: [id number] DID#: [id number] CC: GREGORY ELIZABETH MD;*EndCC*
[2017-08-15] MEDS: LOSARTAN 50 MG TAB PO SCH (16:11)
[2017-08-15 20:15] VITALS: BP 153/73; PULSE 75; RESP 18
[2017-08-15] MEDS: ATORVASTATIN 20 MG TAB PO SCH (20:25)
[2017-08-15] MEDS: INSULIN GLARGINE [LANtus] 3 ML PEN SC SCH (20:27)
[2017-08-15] MEDS: DIPHENHYDRAMINE 25 MG CAP PO PRN (21:49)
[2017-08-16] MEDS: ACCUCHECK AT 2AM (Patients on SS coverage) XX SCH (02:25)
[2017-08-16 07:00] VITALS: BP 141/66; RESP 18
[2017-08-16] MEDS: Insulin NOVOLOG SS MILD Algorithm (SS with meals and bedtime) SC SCH ×4 (07:35→21:21)
[2017-08-16 07:41] LABS: CALCIUM 7.6 mg/dl (8.4-10.2); CREATININE 1.35 mg/dl (0.44-1.00); POTASSIUM 4.2 mmol/L (3.5-5.1)
[2017-08-16] MEDS: MECLIZINE 12.5 MG TAB PO SCH ×3 (08:38→21:05)
[2017-08-16] MEDS: DOCUSATE SODIUM 100 MG CAP PO SCH ×2 (08:39→21:00)
[2017-08-16] MEDS: ASPIRIN (EC) 81 MG TAB PO SCH (08:40)
[2017-08-16] MEDS: LOSARTAN 50 MG TAB PO SCH (08:40)
[2017-08-16] MEDS: SENNA TAB PO SCH ×3 (08:41→21:00)
--- NOTE | 2017-08-16 11:10 | PN ---
DATE: 08/16/2017 SUBJECTIVE: The patient is stable. No events overnight. No fevers, chills, nausea, vomiting, no s hortness of breath. OBJECTIVE: VITAL SIGNS: Blood pressure is 153/73, respiration 18, pulse 75, temperature 98.5. HEENT: Head is normocephalic. NECK: Supple. HEART: Regular rate. LUNGS: Show diminished breath sounds at the base. ABDOMEN: Soft, nontender to palpation. No rebound or guarding. EXTREMITIES: Negative for clubbing, cyanosis, no edema. DERMATOLOGIC: No rashes. MUSCULOSKELETAL: No joint effusions. NEUROLOGIC: No change in exam. MEDICATIONS: The patient's medications have been reviewed. LABORATORY DATA: Shows sodium 135, potassium 4.2, chloride 107, BUN 39, creatinine 1.35, calcium 7. 6. ASSESSMENT AND PLAN: 1. Nonoliguric acute kidney injury on top of chronic kidney disease with unknown baseline creatinin e. Etiology is secondary to hemodynamics. Renal function has stabilized around, creatinine of 1.5 to 2.0 mg/dL. At this point, continue current treatment plan, supportive care, renally dose all med s. 2. Hypertension. Blood pressure is improving. Continue current medical management. 3. Anemia. Monitor hemoglobin and hematocrit levels. 4. Mineral bone disorder, monitor calcium and phosphorus levels. 5. Diabetes. Continue current insulin regimen. 6. Hyponatremia, resolved. 7. Metabolic acidosis, resolved. Dictated By: DENTON VILLA DO NR/NTS Conf#: [id number] DID#: [id number] CC: GREGORY ELIZABETH MD;*EndCC*
--- NOTE | 2017-08-16 11:46 | CONS ---
Date/Time of Note Date/Time of Note DATE: 08/16/17 TIME: 11:46 Consult Date/Type/Reason Admit Date/Time Aug 10, 2017 at 22:23 Type of Consultation: Internal medicine Subjective Patient comfortable with no complaints Objective Vital Signs Date Time Temp Pulse Resp B/P Pulse Ox O2 Delivery O2 Flow Rate FiO2 08/16/17 07:00 98.7 61 18 141/66 96 08/15/17 20:15 Room Air Intake and Output 08/15/17 08/15/17 08/16/17 15:00 23:00 07:00 Intake Total 1600 ml 360 ml Output Total 1200 ml Balance 400 ml 360 ml INTERDISCIPLINARY TEAM CONFERENCE BOWEL- Cont BLADDER-Cont SKIN-improving OT- DRESSING-CGA BATHING-CGA TOILETING-CGA PT- BED MOBILITY-CGA TRANSFERS-CGA AMBULATION-CGA 100 feet SPEECH- COGNITION-min DYPHAGIA-mech soft A/P- Interdisciplinary team conference held today. Please see interdisciplinary sheet. Working toward d.c. on 08/24 with post discharge follow up of physical therapy, occupational therapy. Results/Medications Result Diagram: 08/16/17 0658 Results 24 hrs Laboratory Tests Test 08/15/17 11:52 08/15/17 12:08 08/15/17 17:05 08/15/17 20:20 Bedside Glucose 223 H 203 297 H 280 H Test 08/16/17 02:08 08/16/17 06:58 08/16/17 07:56 Bedside Glucose 168 111 Sodium Level 135 Potassium Level 4.2 Chloride Level 107 Carbon Dioxide Level 21 Anion Gap 11 Blood Urea Nitrogen 39 H Creatinine 1.35 H Glucose Level 125 Calcium Level 7.6 L Medications Current Medications Aspirin (Halfprin) 81 mg DAILY PO Last administered on 08/16/17 08:40; Admin Dose 81 MG; Start 08/11/17 at 09:00 Atorvastatin Calcium (Lipitor) 20 mg DAILY@21 PO Last administered on 20:25; Admin Dose 20 MG; Start 08/11/17 at 21:00 Clonidine (Catapres) 0.1 mg TID PRN PO ELEVATED BLOOD PRESSURE; Start at 23:45 Miscellaneous Information 1 ea NOTE XX ; Start 08/10/17 at 23:45 Glucose (Glutose) 15 gm Q15M PRN PO DECREASED GLUCOSE; Start 08/10/17 at 23:45 Glucose (Glutose) 22.5 gm Q15M PRN PO DECREASED GLUCOSE; Start 08/10/17 at 23: 45 Dextrose (D50w Syringe) 25 ml Q15M PRN IV DECREASED GLUCOSE; Start 08/10/17 at 23:45 Dextrose (D50w Syringe) 50 ml Q15M PRN IV DECREASED GLUCOSE; Start 08/10/17 at 23:45 Glucagon (Glucagen) 1 mg Q15M PRN IM DECREASED GLUCOSE; Start 08/10/17 at 23: 45 Glucose (Glutose) 15 gm Q15M PRN BUCCAL DECREASED GLUCOSE; Start 08/10/17 at 23:45 Diagnostic Test (Pha) (Accu-Chek) 1 ea 02 XX Last administered on 08/16/17 02 :25; Admin Dose 1 EA; Start 08/11/17 at 02:00 Carvedilol (Coreg) 25 mg BID PO Last administered on 08/16/17 08:40; Admin Dose 25 MG; Start 08/11/17 at 09:00 Senna (Senokot) 2 tab BID PO Last administered on 08/11/17 21:12; Admin Dose 2 TAB; Start 08/11/17 at 09:00 Docusate Sodium (Colace) 100 mg BID PO Last administered on 08/16/17 08:39; Admin Dose 100 MG; Start 08/11/17 at 09:00 Senna (Senokot) 1 tab HS PO ; Start 08/11/17 at 21:00 Acetaminophen (Tylenol Tab) 650 mg Q4H PRN PO PAIN Last administered on 13:07; Admin Dose 650 MG; Start 08/11/17 at 03:30 Magnesium Hydroxide (Milk Of Mag) 30 ml BID PRN PO CONSTIPATION; Start at 03:30 Lactulose (Enulose) 20 gm DAILY PRN PO CONSTIPATION; Start 08/11/17 at 03:30 Betamethasone/ Clotrimazole (Lotrisone Cr) 1 applic BID PRN TOP PRURITUS Last administered on 08/15/17 08:24; Admin Dose 1 APPLIC; Start 08/11/17 at 11:00 Meclizine HCl (Antivert) 12.5 mg TID PO Last administered on 08/16/17 08:38; Admin Dose 12.5 MG; Start 08/12/17 at 13:00 Insulin Glargine (Lantus) 16 unit DAILY@20 SC Last administered on 08/15/17 20:27; Admin Dose 16 UNIT; Start 08/12/17 at 20:00 Hydralazine HCl (Apresoline) 100 mg BID PO Last administered on 08/16/17 08: 39; Admin Dose 100 MG; Start 08/14/17 at 21:00 Losartan Potassium (Cozaar) 50 mg DAILY PO Last administered on 08/16/17 08: 40; Admin Dose 50 MG; Start 08/15/17 at 14:00 Diphenhydramine HCl (Benadryl) 25 mg Q6H PRN PO ITCHING Last administered on 21:49; Admin Dose 25 MG; Start 08/15/17 at 21:30; Stop 08/16/17 at 21 :29 GREGORY ELIZABETH MD Aug 16, 2017 11:46
[2017-08-16 14:00] VITALS: BP 153/66; RESP 18
--- NOTE | 2017-08-16 14:38 | CONS ---
Date/Time of Note Date/Time of Note DATE: 08/16/17 TIME: 14:35 Consult Date/Type/Reason Admit Date/Time Aug 10, 2017 at 22:23 Initial Consult Date Type of Consultation: Internal medicine Subjective Patient awake alert oriented.Blood sugars continue to fluctuate. Objective Vital Signs Date Time Temp Pulse Resp B/P Pulse Ox O2 Delivery O2 Flow Rate FiO2 08/16/17 07:00 98.7 61 18 141/66 96 08/15/17 20:15 Room Air Intake and Output 08/15/17 08/15/17 08/16/17 15:00 23:00 07:00 Intake Total 1600 ml 360 ml Output Total 1200 ml Balance 400 ml 360 ml Exam GENERAL: VITAL SIGNS: per chart NECK: Supple. No JVD or lymphadenopathy. CARDIAC EXAM: S1, S2. No added sounds or murmurs. CHEST: clear bilaterally, No added sounds, rales or wheezes ABDOMEN: Soft, nontender. No guarding or rebound. EXTREMITIES: No cyanosis, clubbing or edema. NEUROLOGIC: Generalized weakness. No focal deficits. Well-nourished well- developed lady comfortable at rest no acute distress Results/Medications Result Diagram: 08/16/17 0658 Results 24 hrs Laboratory Tests Test 08/15/17 17:05 08/15/17 20:20 08/16/17 02:08 08/16/17 06:58 Bedside Glucose 297 H 280 H 168 Sodium Level 135 Potassium Level 4.2 Chloride Level 107 Carbon Dioxide Level 21 Anion Gap 11 Blood Urea Nitrogen 39 H Creatinine 1.35 H Glucose Level 125 Calcium Level 7.6 L Test 08/16/17 07:56 08/16/17 12:31 Bedside Glucose 111 245 H Medications Current Medications Aspirin (Halfprin) 81 mg DAILY PO Last administered on 08/16/17 08:40; Admin Dose 81 MG; Start 08/11/17 at 09:00 Atorvastatin Calcium (Lipitor) 20 mg DAILY@21 PO Last administered on 20:25; Admin Dose 20 MG; Start 08/11/17 at 21:00 Clonidine (Catapres) 0.1 mg TID PRN PO ELEVATED BLOOD PRESSURE; Start at 23:45 Miscellaneous Information 1 ea NOTE XX ; Start 08/10/17 at 23:45 Glucose (Glutose) 15 gm Q15M PRN PO DECREASED GLUCOSE; Start 08/10/17 at 23:45 Glucose (Glutose) 22.5 gm Q15M PRN PO DECREASED GLUCOSE; Start 08/10/17 at 23: 45 Dextrose (D50w Syringe) 25 ml Q15M PRN IV DECREASED GLUCOSE; Start 08/10/17 at 23:45 Dextrose (D50w Syringe) 50 ml Q15M PRN IV DECREASED GLUCOSE; Start 08/10/17 at 23:45 Glucagon (Glucagen) 1 mg Q15M PRN IM DECREASED GLUCOSE; Start 08/10/17 at 23: 45 Glucose (Glutose) 15 gm Q15M PRN BUCCAL DECREASED GLUCOSE; Start 08/10/17 at 23:45 Diagnostic Test (Pha) (Accu-Chek) 1 ea 02 XX Last administered on 08/16/17 02 :25; Admin Dose 1 EA; Start 08/11/17 at 02:00 Carvedilol (Coreg) 25 mg BID PO Last administered on 08/16/17 08:40; Admin Dose 25 MG; Start 08/11/17 at 09:00 Senna (Senokot) 2 tab BID PO Last administered on 08/11/17 21:12; Admin Dose 2 TAB; Start 08/11/17 at 09:00 Docusate Sodium (Colace) 100 mg BID PO Last administered on 08/16/17 08:39; Admin Dose 100 MG; Start 08/11/17 at 09:00 Senna (Senokot) 1 tab HS PO ; Start 08/11/17 at 21:00 Acetaminophen (Tylenol Tab) 650 mg Q4H PRN PO PAIN Last administered on 13:07; Admin Dose 650 MG; Start 08/11/17 at 03:30 Magnesium Hydroxide (Milk Of Mag) 30 ml BID PRN PO CONSTIPATION; Start at 03:30 Lactulose (Enulose) 20 gm DAILY PRN PO CONSTIPATION; Start 08/11/17 at 03:30 Betamethasone/ Clotrimazole (Lotrisone Cr) 1 applic BID PRN TOP PRURITUS Last administered on 08/15/17 08:24; Admin Dose 1 APPLIC; Start 08/11/17 at 11:00 Meclizine HCl (Antivert) 12.5 mg TID PO Last administered on 08/16/17 12:40; Admin Dose 12.5 MG; Start 08/12/17 at 13:00 Insulin Glargine (Lantus) 16 unit DAILY@20 SC Last administered on 08/15/17 20:27; Admin Dose 16 UNIT; Start 08/12/17 at 20:00 Hydralazine HCl (Apresoline) 100 mg BID PO Last administered on 08/16/17 08: 39; Admin Dose 100 MG; Start 08/14/17 at 21:00 Losartan Potassium (Cozaar) 50 mg DAILY PO Last administered on 08/16/17 08: 40; Admin Dose 50 MG; Start 08/15/17 at 14:00 Diphenhydramine HCl (Benadryl) 25 mg Q6H PRN PO ITCHING Last administered on 21:49; Admin Dose 25 MG; Start 08/15/17 at 21:30; Stop 08/16/17 at 21 :29 Assessment/Plan Chief Complaint/Hosp Course 77-year-old female with NSTEMI, status post DKA, transferred to acute rehabilitation unit for further physical therapy. 1. Status post non-ST elevated DC. -Status post cardiology evaluation and recommended medical management with ASA/ statin/BB 2. Poorly controlled type 2 diabetes with last known A1c 12.2. Now with stable glycemic trends. -Continue with Accu-Cheks/ISS/Lantus. Appreciate Endo recommendations formal consult for Dr. Barcenas 3. Nonoliguric OCRI on CKD. Renal function stabilizing. -Nephrology following. Will monitor renal function. 24-hour urine collection 4. Hyponatremia. resolved -Follow-up with nephrology recommendations. 5. Anemia of chronic kidney disease. -H&H stable. Will monitor. 6. Essential hypertension. -Continue antihypertensives. 7. Hypothyroidism. -On Synthroid. 8. Status post UTI -Status post treatment. 9. Outpatient ophthalmology evaluation. Problems: ARNOL DODSON MD, [facility] Aug 16, 2017 14:38
[2017-08-16] MEDS: DIPHENHYDRAMINE 25 MG CAP PO PRN (15:34)
--- NOTE | 2017-08-16 19:27 | CONS ---
Date/Time of Note Date/Time of Note DATE: 08/16/17 TIME: 19:24 Assessment/Plan Assessment/Plan Problems: (1) Diabetes mellitus type 2 in nonobese Status: Chronic Comment: Resume mealtime insulins to help control sugars. Do this is a purely insulin based protocol without oral agents. (2) Chronic kidney disease, stage III (moderate) Status: Chronic Comment: Noted and relatively stable. (3) Hyperlipidemia associated with type 2 diabetes mellitus Status: Chronic Comment: On statin therapy. (4) Diastolic dysfunction Status: Chronic Comment: Noted and on beta-blockade. (5) Essential hypertension Status: Chronic Comment: Adequate control. Consultation Date/Type/Reason Admit Date/Time Aug 10, 2017 at 22:23 Initial Consult Date August 162016 Type of Consultation: Endocrinology Reason for Consultation Diabetes mellitus type 2 on a multiple daily injection regimen complicated by chronic kidney disease stage II Referring Provider: ARNOL DODSON MD, [facility] 24 HR Interval Summary Free Text/Dictation Patient reports she has had some variability in her blood sugar control in the last few days. She states at home her blood sugars are always high. She lives with her daughter. Constitutional: no complaints Detailed Summary Respiratory: no complaints Cardiovascular: no complaints Gastrointestinal: no complaints Exam/Review of Systems Vital Signs Vitals Vital Signs Date Time Temp Pulse Resp B/P Pulse Ox O2 Delivery O2 Flow Rate FiO2 08/16/17 14:00 97.5 67 18 153/66 99 08/15/17 20:15 Room Air Intake and Output 08/15/17 08/15/17 08/16/17 15:00 23:00 07:00 Intake Total 1600 ml 360 ml Output Total 1200 ml Balance 400 ml 360 ml Exam Constitutional: alert, oriented Neck: non-tender, supple Cardiovascular: nl pulses, regular rate and rhythm Results Result Diagram: 08/16/17 0658 Results 24 hrs Laboratory Tests Test 08/15/17 20:20 08/16/17 02:08 08/16/17 06:58 08/16/17 07:56 Bedside Glucose 280 H 168 111 Sodium Level 135 Potassium Level 4.2 Chloride Level 107 Carbon Dioxide Level 21 Anion Gap 11 Blood Urea Nitrogen 39 H Creatinine 1.35 H Glucose Level 125 Calcium Level 7.6 L Test 08/16/17 12:31 08/16/17 17:17 Bedside Glucose 245 H 214 Medications Medications Current Medications Aspirin (Halfprin) 81 mg DAILY PO Last administered on 08/16/17 08:40; Admin Dose 81 MG; Start 08/11/17 at 09:00 Atorvastatin Calcium (Lipitor) 20 mg DAILY@21 PO Last administered on 20:25; Admin Dose 20 MG; Start 08/11/17 at 21:00 Clonidine (Catapres) 0.1 mg TID PRN PO ELEVATED BLOOD PRESSURE; Start at 23:45 Miscellaneous Information 1 ea NOTE XX ; Start 08/10/17 at 23:45 Glucose (Glutose) 15 gm Q15M PRN PO DECREASED GLUCOSE; Start 08/10/17 at 23:45 Glucose (Glutose) 22.5 gm Q15M PRN PO DECREASED GLUCOSE; Start 08/10/17 at 23: 45 Dextrose (D50w Syringe) 25 ml Q15M PRN IV DECREASED GLUCOSE; Start 08/10/17 at 23:45 Dextrose (D50w Syringe) 50 ml Q15M PRN IV DECREASED GLUCOSE; Start 08/10/17 at 23:45 Glucagon (Glucagen) 1 mg Q15M PRN IM DECREASED GLUCOSE; Start 08/10/17 at 23: 45 Glucose (Glutose) 15 gm Q15M PRN BUCCAL DECREASED GLUCOSE; Start 08/10/17 at 23:45 Diagnostic Test (Pha) (Accu-Chek) 1 ea 02 XX Last administered on 08/16/17 02 :25; Admin Dose 1 EA; Start 08/11/17 at 02:00 Carvedilol (Coreg) 25 mg BID PO Last administered on 08/16/17 08:40; Admin Dose 25 MG; Start 08/11/17 at 09:00 Senna (Senokot) 2 tab BID PO Last administered on 08/11/17 21:12; Admin Dose 2 TAB; Start 08/11/17 at 09:00 Docusate Sodium (Colace) 100 mg BID PO Last administered on 08/16/17 08:39; Admin Dose 100 MG; Start 08/11/17 at 09:00 Senna (Senokot) 1 tab HS PO ; Start 08/11/17 at 21:00 Acetaminophen (Tylenol Tab) 650 mg Q4H PRN PO PAIN Last administered on 13:07; Admin Dose 650 MG; Start 08/11/17 at 03:30 Magnesium Hydroxide (Milk Of Mag) 30 ml BID PRN PO CONSTIPATION; Start at 03:30 Lactulose (Enulose) 20 gm DAILY PRN PO CONSTIPATION; Start 08/11/17 at 03:30 Betamethasone/ Clotrimazole (Lotrisone Cr) 1 applic BID PRN TOP PRURITUS Last administered on 08/15/17 08:24; Admin Dose 1 APPLIC; Start 08/11/17 at 11:00 Meclizine HCl (Antivert) 12.5 mg TID PO Last administered on 08/16/17 12:40; Admin Dose 12.5 MG; Start 08/12/17 at 13:00 Insulin Glargine (Lantus) 16 unit DAILY@20 SC Last administered on 08/15/17 20:27; Admin Dose 16 UNIT; Start 08/12/17 at 20:00 Hydralazine HCl (Apresoline) 100 mg BID PO Last administered on 08/16/17 08: 39; Admin Dose 100 MG; Start 08/14/17 at 21:00 Losartan Potassium (Cozaar) 50 mg DAILY PO Last administered on 08/16/17 08: 40; Admin Dose 50 MG; Start 08/15/17 at 14:00 Diphenhydramine HCl (Benadryl) 25 mg Q6H PRN PO ITCHING Last administered on 15:34; Admin Dose 25 MG; Start 08/15/17 at 21:30; Stop 08/16/17 at 21 :29 CELIO YAN MD Aug 16, 2017 19:27
[2017-08-16 20:00] VITALS: BP 173/73; RESP 18
[2017-08-16] MEDS: ATORVASTATIN 20 MG TAB PO SCH (21:05)
[2017-08-16] MEDS: INSULIN GLARGINE [LANtus] 3 ML PEN SC SCH (21:19)
[2017-08-16] MEDS: ACETAMINOPHEN 325 MG TAB PO PRN (21:21)
[2017-08-16 22:48] LABS: SCRET 1.35 mg/dl (0.44-1.00)
[2017-08-17 02:00] VITALS: BP 157/67; RESP 18
[2017-08-17] MEDS: ACCUCHECK AT 2AM (Patients on SS coverage) XX SCH (02:42)
[2017-08-17 07:34] LABS: ALBUMIN 2.2 g/dl (3.3-4.9); ALBUMIN/GLOBULIN RATIO 0.81; BILIRUBIN,INDIRECT 0.1 mg/dl (0-1.1); BILIRUBIN,TOTAL 0.1 mg/dl (0.2-1.3); CALCIUM 7.9 mg/dl (8.4-10.2); CREATININE 1.4 mg/dl (0.44-1.00); POTASSIUM 3.8 mmol/L (3.5-5.1); TOTAL PROTEIN 4.9 g/dl (6.1-8.1)
[2017-08-17] MEDS: Insulin NOVOLOG SS MILD Algorithm (SS with meals and bedtime) SC SCH ×4 (07:35→20:14)
[2017-08-17] MEDS: INSULIN ASPART [NOVOLOG] 3 ML PEN SC SCH ×3 (07:56→17:34)
[2017-08-17] MEDS: SENNA TAB PO SCH ×3 (09:02→20:14)
[2017-08-17] MEDS: ASPIRIN (EC) 81 MG TAB PO SCH (09:02)
[2017-08-17] MEDS: DOCUSATE SODIUM 100 MG CAP PO SCH ×2 (09:02→20:14)
[2017-08-17] MEDS: MECLIZINE 12.5 MG TAB PO SCH (09:03)
[2017-08-17] MEDS: LOSARTAN 50 MG TAB PO SCH (09:04)
--- NOTE | 2017-08-17 09:14 | PN ---
DATE: 08/17/2017 SUBJECTIVE: The patient is stable. No events overnight. OBJECTIVE: VITAL SIGNS: Blood pressure is 157/67, respiration 18, pulse 70, temperature 98.0. HEENT: Head is normocephalic. NECK: Supple. HEART: Regular rate. LUNGS: Diminished breath sounds at base. ABDOMEN: Soft, nontender to palpation. No rebound or guarding. EXTREMITIES: Negative for clubbing, cyanosis, no edema. DERMATOLOGIC: No rashes. MUSCULOSKELETAL: No joint effusions. NEUROLOGIC: No change in exam. MEDICATIONS: The patient's medications have been reviewed. LABORATORY DATA: From 06/17/2017 shows sodium 134, potassium 3.8, BUN 49, creatinine 1.40. ASSESSMENT AND PLAN: 1. Nonoliguric acute kidney injury with unknown baseline creatinine. Etiology was felt to be due t o hemodynamics. Renal function is stabilizing around a creatinine of 1.5 to 2 mg/dL. At this poin t, continue current treatment plan, supportive care, renally dose all meds. 2. Hypertension. Blood pressure is controlled. Agree with ARB. Continue to adjust medications as needed. 3. Anemia. Continue to monitor hemoglobin and hematocrit levels. 4. Mineral bone disorder. Continue to monitor calcium and phosphorus levels. 5. Diabetes. Continue current insulin regimen. 6. Hyponatremia, mild. We will continue to monitor and recommend to limit free water intake. 7. Metabolic acidosis. Continue to monitor. Dictated By: DENTON MCCORMACK/NTS Conf#: [id number] DID#: [id number]
--- NOTE | 2017-08-17 10:15 | CONS ---
Date/Time of Note Date/Time of Note DATE: 08/17/17 TIME: 10:11 Assessment/Plan Assessment/Plan Chief Complaint/Hosp Course 77-year-old female with NSTEMI, status post DKA, transferred to acute rehabilitation unit for further physical therapy. 1. Status post non-ST elevated PA. -Status post cardiology evaluation and recommended medical management with ASA/ statin/BB 2. Poorly controlled type 2 diabetes with last known A1c 12.2. -Endocrinology following. On Accu-Cheks/ISS/Lantus. 3. Nonoliguric CORI on CKD. Renal function stabilized to baseline. -Nephrology following. Will continue to monitor renal function. 4. Hyponatremia. Improved. -Follow-up with nephrology recommendations. 5. Anemia of chronic kidney disease. -H&H stable. Will monitor. 6. Essential hypertension. -Continue antihypertensives. 7. Hypothyroidism. -On Synthroid. 8. Status post UTI -Status post treatment. 9. Bilateral blurry vision/dizziness, likely vestibular etiology. Patient had negative workup for acute intracranial/iliac ischemic events. -Resolved with meclizine. Will switch to PRN -Patient may also have possible diabetic retinopathy. Patient would benefit from outpatient ENT/ophthalmology evaluation. DVT prophylaxis: Ambulation/SCDs while in bed. Patient was seen in collaboration with . Problems: Consultation Date/Type/Reason Admit Date/Time Aug 10, 2017 at 22:23 Type of Consultation: Endocrinology Referring Provider: ARNOL DODSON MD, [facility] 24 HR Interval Summary Free Text/Dictation Patient sitting up in chair. Not in acute distress. She did not have any further dizziness episodes. Exam/Review of Systems Vital Signs Vitals Vital Signs Date Time Temp Pulse Resp B/P Pulse Ox O2 Delivery O2 Flow Rate FiO2 08/17/17 02:00 98.0 70 18 157/67 97 08/15/17 20:15 Room Air Intake and Output 08/16/17 08/16/17 08/17/17 15:00 23:00 07:00 Intake Total 800 ml 350 ml Output Total 600 ml Balance 200 ml 350 ml Exam General: Elderly female, not in any acute distress . HEENT: Normocephalic, Atraumatic, No laceration or hematoma; Eyes: PEERL, Conjunctiva clear, Anicteric sclera Neck: Supple without any lymphadenopathy, nontender, no JVD, no carotid bruits, trachea midline, no thyromegaly Cardiac: S1, S2 auscultated, regular rhythm and rate, no mumurs or gallop Pulmonary: Normal respiratory effort. Chest clear to auscultation bilaterally, no adventitious breath sounds GI: Abdomen normal to inspection. Soft, non tender, non- distended, no masses, no rebound tenderness or guarding. Bowel sounds active on all four quadrants Genitourinary: Deferred Extremities: No cyanosis, clubbing, or edema. Pulses [2+] bilaterally. Full ROM on all four extremities. No focal weakness appreciated. Neurologic: Alert to person, place, time, and situation. Affect appropriate, intact sensation. Skin: Clean,dry, and intact. No ecchymosis, no rashes, or lesions Results Result Diagram: 08/17/17 0629 Results 24 hrs Laboratory Tests Test 08/16/17 12:31 08/16/17 17:17 08/16/17 21:00 08/16/17 21:14 Bedside Glucose 245 H 214 295 H Urine Random Creatinine 70.87 Urine Collection Duration 24 Urine Total Volume 24 Hours 750 Urine Creatinine Timed 24 Creatinine Clearance 27.3 L Urine Total Volume (Protein) 750 Urine Total Protein 24 Hour 1132.5 H Test 08/17/17 02:35 08/17/17 06:29 08/17/17 07:37 Bedside Glucose 132 95 Sodium Level 134 L Potassium Level 3.8 Chloride Level 107 Carbon Dioxide Level 20 L Anion Gap 11 Blood Urea Nitrogen 49 H Creatinine 1.40 H Glucose Level 92 Calcium Level 7.9 L Total Bilirubin 0.1 L Direct Bilirubin 0.00 Indirect Bilirubin 0.1 Aspartate Amino Transf (AST/SGOT) 36 Alanine Aminotransferase (ALT/SGPT) 61 Alkaline Phosphatase 49 Total Protein 4.9 L Albumin 2.2 L Globulin 2.70 Albumin/Globulin Ratio 0.81 Medications Medications Current Medications Aspirin (Halfprin) 81 mg DAILY PO Last administered on 08/17/17 09:02; Admin Dose 81 MG; Start 08/11/17 at 09:00 Atorvastatin Calcium (Lipitor) 20 mg DAILY@21 PO Last administered on 21:05; Admin Dose 20 MG; Start 08/11/17 at 21:00 Miscellaneous Information 1 ea NOTE XX ; Start 08/10/17 at 23:45 Glucose (Glutose) 15 gm Q15M PRN PO DECREASED GLUCOSE; Start 08/10/17 at 23:45 Glucose (Glutose) 22.5 gm Q15M PRN PO DECREASED GLUCOSE; Start 08/10/17 at 23: 45 Dextrose (D50w Syringe) 25 ml Q15M PRN IV DECREASED GLUCOSE; Start 08/10/17 at 23:45 Dextrose (D50w Syringe) 50 ml Q15M PRN IV DECREASED GLUCOSE; Start 08/10/17 at 23:45 Glucagon (Glucagen) 1 mg Q15M PRN IM DECREASED GLUCOSE; Start 08/10/17 at 23: 45 Glucose (Glutose) 15 gm Q15M PRN BUCCAL DECREASED GLUCOSE; Start 08/10/17 at 23:45 Diagnostic Test (Pha) (Accu-Chek) 1 ea 02 XX Last administered on 08/17/17 02 :42; Admin Dose 1 EA; Start 08/11/17 at 02:00 Carvedilol (Coreg) 25 mg BID PO Last administered on 08/17/17 09:03; Admin Dose 25 MG; Start 08/11/17 at 09:00 Senna (Senokot) 2 tab BID PO Last administered on 08/17/17 09:02; Admin Dose 2 TAB; Start 08/11/17 at 09:00 Docusate Sodium (Colace) 100 mg BID PO Last administered on 08/17/17 09:02; Admin Dose 100 MG; Start 08/11/17 at 09:00 Senna (Senokot) 1 tab HS PO ; Start 08/11/17 at 21:00 Acetaminophen (Tylenol Tab) 650 mg Q4H PRN PO PAIN Last administered on 21:21; Admin Dose 650 MG; Start 08/11/17 at 03:30 Magnesium Hydroxide (Milk Of Mag) 30 ml BID PRN PO CONSTIPATION; Start at 03:30 Lactulose (Enulose) 20 gm DAILY PRN PO CONSTIPATION; Start 08/11/17 at 03:30 Betamethasone/ Clotrimazole (Lotrisone Cr) 1 applic BID PRN TOP PRURITUS Last administered on 08/15/17 08:24; Admin Dose 1 APPLIC; Start 08/11/17 at 11:00 Meclizine HCl (Antivert) 12.5 mg TID PO Last administered on 08/17/17 09:03; Admin Dose 12.5 MG; Start 08/12/17 at 13:00 Hydralazine HCl (Apresoline) 100 mg BID PO Last administered on 08/17/17 09: 04; Admin Dose 100 MG; Start 08/14/17 at 21:00 Insulin Glargine (Lantus) 20 unit DAILY@20 SC Last administered on 08/16/17 21:19; Admin Dose 20 UNIT; Start 08/16/17 at 20:00 Losartan Potassium (Cozaar) 100 mg DAILY PO Last administered on 08/17/17 09: 04; Admin Dose 100 MG; Start 08/17/17 at 09:00 DARRICK MANNING NP Aug 17, 2017 10:15
[2017-08-17] MEDS ORDERED: MECLIZINE 12.5 MG TAB PO PRN (10:30)
--- NOTE | 2017-08-17 11:18 | CONS ---
Date/Time of Note Date/Time of Note DATE: 08/17/17 TIME: 11:18 Consult Date/Type/Reason Admit Date/Time Aug 10, 2017 at 22:23 Type of Consultation: Endocrinology Ordering Provider: ARNOL DODSON MD, [facility] Subjective Patient comfortable Objective Pulm-cta sba ambulation 150 feet Vital Signs Date Time Temp Pulse Resp B/P Pulse Ox O2 Delivery O2 Flow Rate FiO2 08/17/17 02:00 98.0 70 18 157/67 97 08/15/17 20:15 Room Air Intake and Output 08/16/17 08/16/17 08/17/17 15:00 23:00 07:00 Intake Total 800 ml 350 ml Output Total 600 ml Balance 200 ml 350 ml Results/Medications Result Diagram: 08/17/17 0629 Results 24 hrs Laboratory Tests Test 08/16/17 12:31 08/16/17 17:17 08/16/17 21:00 08/16/17 21:14 Bedside Glucose 245 H 214 295 H Urine Random Creatinine 70.87 Urine Collection Duration 24 Urine Total Volume 24 Hours 750 Urine Creatinine Timed 24 Creatinine Clearance 27.3 L Urine Total Volume (Protein) 750 Urine Total Protein 24 Hour 1132.5 H Test 08/17/17 02:35 08/17/17 06:29 08/17/17 07:37 Bedside Glucose 132 95 Sodium Level 134 L Potassium Level 3.8 Chloride Level 107 Carbon Dioxide Level 20 L Anion Gap 11 Blood Urea Nitrogen 49 H Creatinine 1.40 H Glucose Level 92 Calcium Level 7.9 L Total Bilirubin 0.1 L Direct Bilirubin 0.00 Indirect Bilirubin 0.1 Aspartate Amino Transf (AST/SGOT) 36 Alanine Aminotransferase (ALT/SGPT) 61 Alkaline Phosphatase 49 Total Protein 4.9 L Albumin 2.2 L Globulin 2.70 Albumin/Globulin Ratio 0.81 Medications Current Medications Aspirin (Halfprin) 81 mg DAILY PO Last administered on 08/17/17 09:02; Admin Dose 81 MG; Start 08/11/17 at 09:00 Atorvastatin Calcium (Lipitor) 20 mg DAILY@21 PO Last administered on 21:05; Admin Dose 20 MG; Start 08/11/17 at 21:00 Miscellaneous Information 1 ea NOTE XX ; Start 08/10/17 at 23:45 Glucose (Glutose) 15 gm Q15M PRN PO DECREASED GLUCOSE; Start 08/10/17 at 23:45 Glucose (Glutose) 22.5 gm Q15M PRN PO DECREASED GLUCOSE; Start 08/10/17 at 23: 45 Dextrose (D50w Syringe) 25 ml Q15M PRN IV DECREASED GLUCOSE; Start 08/10/17 at 23:45 Dextrose (D50w Syringe) 50 ml Q15M PRN IV DECREASED GLUCOSE; Start 08/10/17 at 23:45 Glucagon (Glucagen) 1 mg Q15M PRN IM DECREASED GLUCOSE; Start 08/10/17 at 23: 45 Glucose (Glutose) 15 gm Q15M PRN BUCCAL DECREASED GLUCOSE; Start 08/10/17 at 23:45 Diagnostic Test (Pha) (Accu-Chek) 1 ea 02 XX Last administered on 08/17/17 02 :42; Admin Dose 1 EA; Start 08/11/17 at 02:00 Carvedilol (Coreg) 25 mg BID PO Last administered on 08/17/17 09:03; Admin Dose 25 MG; Start 08/11/17 at 09:00 Senna (Senokot) 2 tab BID PO Last administered on 08/17/17 09:02; Admin Dose 2 TAB; Start 08/11/17 at 09:00 Docusate Sodium (Colace) 100 mg BID PO Last administered on 08/17/17 09:02; Admin Dose 100 MG; Start 08/11/17 at 09:00 Senna (Senokot) 1 tab HS PO ; Start 08/11/17 at 21:00 Acetaminophen (Tylenol Tab) 650 mg Q4H PRN PO PAIN Last administered on 21:21; Admin Dose 650 MG; Start 08/11/17 at 03:30 Magnesium Hydroxide (Milk Of Mag) 30 ml BID PRN PO CONSTIPATION; Start at 03:30 Lactulose (Enulose) 20 gm DAILY PRN PO CONSTIPATION; Start 08/11/17 at 03:30 Betamethasone/ Clotrimazole (Lotrisone Cr) 1 applic BID PRN TOP PRURITUS Last administered on 08/15/17 08:24; Admin Dose 1 APPLIC; Start 08/11/17 at 11:00 Hydralazine HCl (Apresoline) 100 mg BID PO Last administered on 08/17/17 09: 04; Admin Dose 100 MG; Start 08/14/17 at 21:00 Insulin Glargine (Lantus) 20 unit DAILY@20 SC Last administered on 08/16/17 21:19; Admin Dose 20 UNIT; Start 08/16/17 at 20:00 Losartan Potassium (Cozaar) 100 mg DAILY PO Last administered on 08/17/17 09: 04; Admin Dose 100 MG; Start 08/17/17 at 09:00 Meclizine HCl (Antivert) 12.5 mg TID PRN PO dizziness; Start 08/17/17 at 10:30 Assessment/Plan Additional Assessment/Plan Rehab- Debility secondary to non-ST elevation TX and syncope with possible blunt head trauma. Patient participating in therapy activities. Dysphagia- Continue current diet Acute on chronic kidney disease. Diabetes mellitus, status post mild DKA. Status post syncope. Sinusitis. Acute on chronic kidney disease. Hypothyroidism. GREGORY ELIZABETH MD Aug 17, 2017 11:18
[2017-08-17] MEDS: ACETAMINOPHEN 325 MG TAB PO PRN (12:46)
--- NOTE | 2017-08-17 13:32 | CONS ---
Date/Time of Note Date/Time of Note DATE: 08/17/17 TIME: 13:31 Assessment/Plan Assessment/Plan Problems: (1) Diabetes mellitus type 2 in nonobese Status: Chronic Comment: Adequate control now on a multiple daily injection regimen. Continue to follow along (2) Chronic kidney disease, stage III (moderate) Status: Chronic Comment: She has a partial prerenal state at this time. In the liberalize her fluid restriction a bit and follow her. (3) Diastolic dysfunction Status: Chronic Comment: Adequate control of beta-blockade (4) Essential hypertension Status: Chronic Comment: Adequate control with full dose angiotensin II receptor justice therapy and combination (5) Acquired hypothyroidism Status: Chronic Comment: Stable on replacement Consultation Date/Type/Reason Admit Date/Time Aug 10, 2017 at 22:23 Initial Consult Date August 162016 Type of Consultation: Endocrinology Reason for Consultation Diabetes mellitus type 2 with poor outpatient control; chronic kidney disease; prerenal azotemia; hypertension Referring Provider: ARNOL DODSON MD, [facility] 24 HR Interval Summary Free Text/Dictation Patient reports her sugars are much more steady. She wants to have a reevaluation on her fluid restriction. Detailed Summary Respiratory: no complaints Cardiovascular: no complaints Exam/Review of Systems Vital Signs Vitals Vital Signs Date Time Temp Pulse Resp B/P Pulse Ox O2 Delivery O2 Flow Rate FiO2 08/17/17 02:00 98.0 70 18 157/67 97 08/15/17 20:15 Room Air Intake and Output 08/16/17 08/16/17 08/17/17 14:59 22:59 06:59 Intake Total 800 ml 350 ml Output Total 600 ml Balance 200 ml 350 ml Exam Constitutional: alert, oriented Respiratory: clear to auscultation, normal air movement Cardiovascular: nl pulses, regular rate and rhythm Results Result Diagram: 08/17/17 0629 Results 24 hrs Laboratory Tests Test 08/16/17 17:17 08/16/17 21:00 08/16/17 21:14 08/17/17 02:35 Bedside Glucose 214 295 H 132 Urine Random Creatinine 70.87 Urine Collection Duration 24 Urine Total Volume 24 Hours 750 Urine Creatinine Timed 24 Creatinine Clearance 27.3 L Urine Total Volume (Protein) 750 Urine Total Protein 24 Hour 1132.5 H Test 08/17/17 06:29 08/17/17 07:37 08/17/17 12:40 Sodium Level 134 L Potassium Level 3.8 Chloride Level 107 Carbon Dioxide Level 20 L Anion Gap 11 Blood Urea Nitrogen 49 H Creatinine 1.40 H Glucose Level 92 Calcium Level 7.9 L Total Bilirubin 0.1 L Direct Bilirubin 0.00 Indirect Bilirubin 0.1 Aspartate Amino Transf (AST/SGOT) 36 Alanine Aminotransferase (ALT/SGPT) 61 Alkaline Phosphatase 49 Total Protein 4.9 L Albumin 2.2 L Globulin 2.70 Albumin/Globulin Ratio 0.81 Bedside Glucose 95 160 Medications Medications Current Medications Aspirin (Halfprin) 81 mg DAILY PO Last administered on 08/17/17 09:02; Admin Dose 81 MG; Start 08/11/17 at 09:00 Atorvastatin Calcium (Lipitor) 20 mg DAILY@21 PO Last administered on 21:05; Admin Dose 20 MG; Start 08/11/17 at 21:00 Miscellaneous Information 1 ea NOTE XX ; Start 08/10/17 at 23:45 Glucose (Glutose) 15 gm Q15M PRN PO DECREASED GLUCOSE; Start 08/10/17 at 23:45 Glucose (Glutose) 22.5 gm Q15M PRN PO DECREASED GLUCOSE; Start 08/10/17 at 23: 45 Dextrose (D50w Syringe) 25 ml Q15M PRN IV DECREASED GLUCOSE; Start 08/10/17 at 23:45 Dextrose (D50w Syringe) 50 ml Q15M PRN IV DECREASED GLUCOSE; Start 08/10/17 at 23:45 Glucagon (Glucagen) 1 mg Q15M PRN IM DECREASED GLUCOSE; Start 08/10/17 at 23: 45 Glucose (Glutose) 15 gm Q15M PRN BUCCAL DECREASED GLUCOSE; Start 08/10/17 at 23:45 Diagnostic Test (Pha) (Accu-Chek) 1 ea 02 XX Last administered on 08/17/17 02 :42; Admin Dose 1 EA; Start 08/11/17 at 02:00 Carvedilol (Coreg) 25 mg BID PO Last administered on 08/17/17 09:03; Admin Dose 25 MG; Start 08/11/17 at 09:00 Senna (Senokot) 2 tab BID PO Last administered on 08/17/17 09:02; Admin Dose 2 TAB; Start 08/11/17 at 09:00 Docusate Sodium (Colace) 100 mg BID PO Last administered on 08/17/17 09:02; Admin Dose 100 MG; Start 08/11/17 at 09:00 Senna (Senokot) 1 tab HS PO ; Start 08/11/17 at 21:00 Acetaminophen (Tylenol Tab) 650 mg Q4H PRN PO PAIN Last administered on 12:46; Admin Dose 650 MG; Start 08/11/17 at 03:30 Magnesium Hydroxide (Milk Of Mag) 30 ml BID PRN PO CONSTIPATION; Start at 03:30 Lactulose (Enulose) 20 gm DAILY PRN PO CONSTIPATION; Start 08/11/17 at 03:30 Betamethasone/ Clotrimazole (Lotrisone Cr) 1 applic BID PRN TOP PRURITUS Last administered on 08/15/17 08:24; Admin Dose 1 APPLIC; Start 08/11/17 at 11:00 Hydralazine HCl (Apresoline) 100 mg BID PO Last administered on 08/17/17 09: 04; Admin Dose 100 MG; Start 08/14/17 at 21:00 Insulin Glargine (Lantus) 20 unit DAILY@20 SC Last administered on 08/16/17 21:19; Admin Dose 20 UNIT; Start 08/16/17 at 20:00 Losartan Potassium (Cozaar) 100 mg DAILY PO Last administered on 08/17/17 09: 04; Admin Dose 100 MG; Start 08/17/17 at 09:00 Meclizine HCl (Antivert) 12.5 mg TID PRN PO dizziness; Start 08/17/17 at 10:30 CELIO YAN MD Aug 17, 2017 13:32
[2017-08-17 20:00] VITALS: BP 165/70; PULSE 67; RESP 17
[2017-08-17] MEDS: ATORVASTATIN 20 MG TAB PO SCH (20:01)
[2017-08-17] MEDS: INSULIN GLARGINE [LANtus] 3 ML PEN SC SCH (20:13)
[2017-08-18] VITALS (8 sets, daily range): BP systolic 108–194; BP diastolic 65–79; PULSE 62–71; RESP 16–18
[2017-08-18] MEDS: ACCUCHECK AT 2AM (Patients on SS coverage) XX SCH (02:00)
[2017-08-18] MEDS ORDERED: hydrALAzine 20 MG INJ IV PRN (06:30)
[2017-08-18] MEDS: Insulin NOVOLOG SS MILD Algorithm (SS with meals and bedtime) SC SCH ×4 (08:27→20:34)
[2017-08-18] MEDS: INSULIN ASPART [NOVOLOG] 3 ML PEN SC SCH ×3 (08:29→17:37)
[2017-08-18] MEDS: DOCUSATE SODIUM 100 MG CAP PO SCH ×2 (08:29→20:35)
[2017-08-18] MEDS: LOSARTAN 50 MG TAB PO SCH (08:30)
[2017-08-18] MEDS: SENNA TAB PO SCH ×3 (08:30→20:35)
[2017-08-18] MEDS: ASPIRIN (EC) 81 MG TAB PO SCH (08:30)
--- NOTE | 2017-08-18 08:44 | CONS ---
Date/Time of Note Date/Time of Note DATE: 08/18/17 TIME: 08:43 Assessment/Plan Assessment/Plan Problems: (1) Diabetes mellitus type 2 in nonobese Status: Chronic Comment: Continue to follow along. Her morning sugar this morning was elevated and her insulin reportedly was not held. I would like to keep an eye on this rather than making adjustments just yet Consultation Date/Type/Reason Admit Date/Time Aug 10, 2017 at 22:23 Initial Consult Date August 162016 Type of Consultation: Endocrinology Reason for Consultation Diabetes mellitus on multiple daily injection regimen who had hemoglobin A1c of 12.2 at the time of admission Referring Provider: ARNOL DODSON MD, [facility] Interval Summary Constitutional: no complaints Exam/Review of Systems Vital Signs Vitals Vital Signs Date Time Temp Pulse Resp B/P Pulse Ox O2 Delivery O2 Flow Rate FiO2 08/18/17 07:19 71 166/70 08/18/17 02:19 98.3 16 97 Room Air Intake and Output 08/17/17 08/17/17 08/18/17 15:00 23:00 07:00 Intake Total 150 ml Output Total 650 ml 500 ml Balance -650 ml 150 ml -500 ml Results No changes in exam Result Diagram: 08/17/17 0629 Results 24 hrs Laboratory Tests Test 08/17/17 12:40 08/17/17 17:31 08/17/17 20:04 08/18/17 08:25 Bedside Glucose 160 155 149 270 H Medications Medications Current Medications Aspirin (Halfprin) 81 mg DAILY PO Last administered on 08/18/17 08:30; Admin Dose 81 MG; Start 08/11/17 at 09:00 Atorvastatin Calcium (Lipitor) 20 mg DAILY@21 PO Last administered on 20:01; Admin Dose 20 MG; Start 08/11/17 at 21:00 Miscellaneous Information 1 ea NOTE XX ; Start 08/10/17 at 23:45 Glucose (Glutose) 15 gm Q15M PRN PO DECREASED GLUCOSE; Start 08/10/17 at 23:45 Glucose (Glutose) 22.5 gm Q15M PRN PO DECREASED GLUCOSE; Start 08/10/17 at 23: 45 Dextrose (D50w Syringe) 25 ml Q15M PRN IV DECREASED GLUCOSE; Start 08/10/17 at 23:45 Dextrose (D50w Syringe) 50 ml Q15M PRN IV DECREASED GLUCOSE; Start 08/10/17 at 23:45 Glucagon (Glucagen) 1 mg Q15M PRN IM DECREASED GLUCOSE; Start 08/10/17 at 23: 45 Glucose (Glutose) 15 gm Q15M PRN BUCCAL DECREASED GLUCOSE; Start 08/10/17 at 23:45 Diagnostic Test (Pha) (Accu-Chek) 1 ea 02 XX Last administered on 08/17/17 02 :42; Admin Dose 1 EA; Start 08/11/17 at 02:00 Carvedilol (Coreg) 25 mg BID PO Last administered on 08/18/17 08:30; Admin Dose 25 MG; Start 08/11/17 at 09:00 Senna (Senokot) 2 tab BID PO Last administered on 08/18/17 08:30; Admin Dose 2 TAB; Start 08/11/17 at 09:00 Docusate Sodium (Colace) 100 mg BID PO Last administered on 08/18/17 08:29; Admin Dose 100 MG; Start 08/11/17 at 09:00 Senna (Senokot) 1 tab HS PO ; Start 08/11/17 at 21:00 Acetaminophen (Tylenol Tab) 650 mg Q4H PRN PO PAIN Last administered on 12:46; Admin Dose 650 MG; Start 08/11/17 at 03:30 Magnesium Hydroxide (Milk Of Mag) 30 ml BID PRN PO CONSTIPATION; Start at 03:30 Lactulose (Enulose) 20 gm DAILY PRN PO CONSTIPATION; Start 08/11/17 at 03:30 Betamethasone/ Clotrimazole (Lotrisone Cr) 1 applic BID PRN TOP PRURITUS Last administered on 08/15/17 08:24; Admin Dose 1 APPLIC; Start 08/11/17 at 11:00 Hydralazine HCl (Apresoline) 100 mg BID PO Last administered on 08/18/17 08: 29; Admin Dose 100 MG; Start 08/14/17 at 21:00 Insulin Glargine (Lantus) 20 unit DAILY@20 SC Last administered on 08/17/17 20:13; Admin Dose 20 UNIT; Start 08/16/17 at 20:00 Losartan Potassium (Cozaar) 100 mg DAILY PO Last administered on 08/18/17 08: 30; Admin Dose 100 MG; Start 08/17/17 at 09:00 Meclizine HCl (Antivert) 12.5 mg TID PRN PO dizziness; Start 08/17/17 at 10:30 Hydralazine HCl (Apresoline) 10 mg Q4H PRN IV ELEVATED BLOOD PRESSURE Last administered on 08/18/17 06:42; Admin Dose 10 MG; Start 08/18/17 at 06:30 CELIO YAN MD Aug 18, 2017 08:44
[2017-08-18] MEDS ORDERED: AMLODIPINE 5 MG TAB PO SCH (09:30)
--- NOTE | 2017-08-18 10:18 | PN ---
DATE: 08/18/2017 SUBJECTIVE: The patient is stable. No events overnight. No fevers, chills, nausea, vomiting. OBJECTIVE: VITAL SIGNS: Blood pressure is 166/70, respiration is 16, pulse 71, temperature 98.3. HEENT: Head is normocephalic. NECK: Supple. HEART: Regular rate. LUNGS: Show diminished breath sounds at base. ABDOMEN: Soft, nontender to palpation. No rebound or guarding. EXTREMITIES: Negative for clubbing, cyanosis, no edema. DERMATOLOGIC: No rashes. MUSCULOSKELETAL: No joint effusions. NEUROLOGIC: No change in exam. MEDICATIONS: The patient's medications have been reviewed. LABORATORY DATA: Has been reviewed, no new labs. ASSESSMENT AND PLAN: 1. Nonoliguric acute kidney injury with unknown baseline creatinine. Etiology felt to be secondary to hemodynamics. Renal function appears to have stabilized. Continue current treatment plan, supp ortive care, renally dose all medicines 2. Chronic kidney disease. The patient is currently in acute kidney injury as stated above. Renal function appears to be stabilizing. Continue disease factor modifications, good glycemic and blood pressure control. 3. Hypertension. Blood pressure remains elevated. We will continue current blood pressure regimen , add Norvasc. 4. Anemia. Monitor hemoglobin and hematocrit levels. 5. Mineral bone disorder. Monitor calcium and phosphorus levels. 6. Diabetes. Continue current insulin regimen. 7. Hypernatremia, mild, improving. Continue to monitor. 8. Metabolic acidosis, resolved. Dictated By: DENTON MCCORMACK/NTS Conf#: [id number] DID#: [id number] CC: GREGORY ELIZABETH MD;*EndCC*
--- NOTE | 2017-08-18 10:28 | CONS ---
Date/Time of Note Date/Time of Note DATE: 08/18/17 TIME: 10:27 Consult Date/Type/Reason Admit Date/Time Aug 10, 2017 at 22:23 Type of Consultation: Endocrinology Ordering Provider: ARNOL DODSON MD, [facility] Subjective Overall improving Objective pulm-cta supervised ambulation 175 feet Vital Signs Date Time Temp Pulse Resp B/P Pulse Ox O2 Delivery O2 Flow Rate FiO2 08/18/17 07:19 71 166/70 08/18/17 02:19 98.3 16 97 Room Air Intake and Output 08/17/17 08/17/17 08/18/17 15:00 23:00 07:00 Intake Total 150 ml Output Total 650 ml 500 ml Balance -650 ml 150 ml -500 ml Results/Medications Result Diagram: 08/17/17 0629 Results 24 hrs Laboratory Tests Test 08/17/17 12:40 08/17/17 17:31 08/17/17 20:04 08/18/17 08:25 Bedside Glucose 160 155 149 270 H Medications Current Medications Aspirin (Halfprin) 81 mg DAILY PO Last administered on 08/18/17 08:30; Admin Dose 81 MG; Start 08/11/17 at 09:00 Atorvastatin Calcium (Lipitor) 20 mg DAILY@21 PO Last administered on 20:01; Admin Dose 20 MG; Start 08/11/17 at 21:00 Miscellaneous Information 1 ea NOTE XX ; Start 08/10/17 at 23:45 Glucose (Glutose) 15 gm Q15M PRN PO DECREASED GLUCOSE; Start 08/10/17 at 23:45 Glucose (Glutose) 22.5 gm Q15M PRN PO DECREASED GLUCOSE; Start 08/10/17 at 23: 45 Dextrose (D50w Syringe) 25 ml Q15M PRN IV DECREASED GLUCOSE; Start 08/10/17 at 23:45 Dextrose (D50w Syringe) 50 ml Q15M PRN IV DECREASED GLUCOSE; Start 08/10/17 at 23:45 Glucagon (Glucagen) 1 mg Q15M PRN IM DECREASED GLUCOSE; Start 08/10/17 at 23: 45 Glucose (Glutose) 15 gm Q15M PRN BUCCAL DECREASED GLUCOSE; Start 08/10/17 at 23:45 Diagnostic Test (Pha) (Accu-Chek) 1 ea 02 XX Last administered on 08/17/17 02 :42; Admin Dose 1 EA; Start 08/11/17 at 02:00 Carvedilol (Coreg) 25 mg BID PO Last administered on 08/18/17 08:30; Admin Dose 25 MG; Start 08/11/17 at 09:00 Senna (Senokot) 2 tab BID PO Last administered on 08/18/17 08:30; Admin Dose 2 TAB; Start 08/11/17 at 09:00 Docusate Sodium (Colace) 100 mg BID PO Last administered on 08/18/17 08:29; Admin Dose 100 MG; Start 08/11/17 at 09:00 Senna (Senokot) 1 tab HS PO ; Start 08/11/17 at 21:00 Acetaminophen (Tylenol Tab) 650 mg Q4H PRN PO PAIN Last administered on 12:46; Admin Dose 650 MG; Start 08/11/17 at 03:30 Magnesium Hydroxide (Milk Of Mag) 30 ml BID PRN PO CONSTIPATION; Start at 03:30 Lactulose (Enulose) 20 gm DAILY PRN PO CONSTIPATION; Start 08/11/17 at 03:30 Betamethasone/ Clotrimazole (Lotrisone Cr) 1 applic BID PRN TOP PRURITUS Last administered on 08/15/17 08:24; Admin Dose 1 APPLIC; Start 08/11/17 at 11:00 Hydralazine HCl (Apresoline) 100 mg BID PO Last administered on 08/18/17 08: 29; Admin Dose 100 MG; Start 08/14/17 at 21:00 Insulin Glargine (Lantus) 20 unit DAILY@20 SC Last administered on 08/17/17 20:13; Admin Dose 20 UNIT; Start 08/16/17 at 20:00 Losartan Potassium (Cozaar) 100 mg DAILY PO Last administered on 08/18/17 08: 30; Admin Dose 100 MG; Start 08/17/17 at 09:00 Meclizine HCl (Antivert) 12.5 mg TID PRN PO dizziness; Start 08/17/17 at 10:30 Hydralazine HCl (Apresoline) 10 mg Q4H PRN IV ELEVATED BLOOD PRESSURE Last administered on 08/18/17 06:42; Admin Dose 10 MG; Start 08/18/17 at 06:30 Amlodipine Besylate (Norvasc) 5 mg DAILY PO ; Start 08/18/17 at 09:30 Assessment/Plan Additional Assessment/Plan Rehab- Debility secondary to non-ST elevation GA and syncope with possible blunt head trauma. Continues to make progress. Need for supervision at home reviewed with family. Dysphagia- Continue current diet Acute on chronic kidney disease. Diabetes mellitus-followed by endo Status post syncope. Sinusitis. Acute on chronic kidney disease. Hypothyroidism. GREGORY ELIZABETH MD Aug 18, 2017 10:28
--- NOTE | 2017-08-18 10:43 | CONS ---
Date/Time of Note Date/Time of Note DATE: 08/18/17 TIME: 10:41 Assessment/Plan Assessment/Plan Chief Complaint/Hosp Course 77-year-old female with NSTEMI, status post DKA, transferred to acute rehabilitation unit for further physical therapy. 1. Status post non-ST elevated ND. -Status post cardiology evaluation and recommended medical management with ASA/ statin/BB 2. Poorly controlled type 2 diabetes with last known A1c 12.2. -Endocrinology following. On Accu-Cheks/ISS/Lantus. 3. Nonoliguric CORI on CKD. Renal function stabilized to baseline. -Nephrology following. Will continue to monitor renal function. 4. Hyponatremia. Improved. -Follow-up with nephrology recommendations. 5. Anemia of chronic kidney disease. -H&H stable. Will monitor. 6. Essential hypertension, now with escalated hypertension -Will discontinue amlodipine and start patient on Procardia XL. Continue beta- blockers and ARB. 7. Hypothyroidism. -On Synthroid. 8. Status post UTI -Status post treatment. 9. Bilateral blurry vision/dizziness, likely vestibular etiology. Patient had negative workup for acute intracranial/iliac ischemic events. -Resolved with meclizine. Continue PRN dose. -Patient may also have possible diabetic retinopathy. Patient would benefit from outpatient ENT/ophthalmology evaluation. DVT prophylaxis: Ambulation/SCDs while in bed. Patient was seen in collaboration with . Problems: Consultation Date/Type/Reason Admit Date/Time Aug 10, 2017 at 22:23 Type of Consultation: Endocrinology Referring Provider: ARNOL DODSON MD, [facility] 24 HR Interval Summary Free Text/Dictation No acute distress. Patient with escalated hypertension. Denies any chest pain , palpitation or other discomfort. Exam/Review of Systems Vital Signs Vitals Vital Signs Date Time Temp Pulse Resp B/P Pulse Ox O2 Delivery O2 Flow Rate FiO2 08/18/17 07:19 71 166/70 08/18/17 02:19 98.3 16 97 Room Air Intake and Output 08/17/17 08/17/17 08/18/17 15:00 23:00 07:00 Intake Total 150 ml Output Total 650 ml 500 ml Balance -650 ml 150 ml -500 ml Exam General: Elderly female, not in any acute distress . HEENT: Normocephalic, Atraumatic, No laceration or hematoma; Eyes: PEERL, Conjunctiva clear, Anicteric sclera Neck: Supple without any lymphadenopathy, nontender, no JVD, no carotid bruits, trachea midline, no thyromegaly Cardiac: S1, S2 auscultated, regular rhythm and rate, no mumurs or gallop Pulmonary: Normal respiratory effort. Chest clear to auscultation bilaterally, no adventitious breath sounds GI: Abdomen normal to inspection. Soft, non tender, non- distended, no masses, no rebound tenderness or guarding. Bowel sounds active on all four quadrants Genitourinary: Deferred Extremities: No cyanosis, clubbing, or edema. Pulses [2+] bilaterally. Full ROM on all four extremities. No focal weakness appreciated. Neurologic: Alert to person, place, time, and situation. Affect appropriate, intact sensation. Skin: Clean,dry, and intact. No ecchymosis, no rashes, or lesions Results Result Diagram: 08/17/17 0629 Results 24 hrs Laboratory Tests Test 08/17/17 12:40 08/17/17 17:31 08/17/17 20:04 08/18/17 08:25 Bedside Glucose 160 155 149 270 H Medications Medications Current Medications Aspirin (Halfprin) 81 mg DAILY PO Last administered on 08/18/17 08:30; Admin Dose 81 MG; Start 08/11/17 at 09:00 Atorvastatin Calcium (Lipitor) 20 mg DAILY@21 PO Last administered on 20:01; Admin Dose 20 MG; Start 08/11/17 at 21:00 Miscellaneous Information 1 ea NOTE XX ; Start 08/10/17 at 23:45 Glucose (Glutose) 15 gm Q15M PRN PO DECREASED GLUCOSE; Start 08/10/17 at 23:45 Glucose (Glutose) 22.5 gm Q15M PRN PO DECREASED GLUCOSE; Start 08/10/17 at 23: 45 Dextrose (D50w Syringe) 25 ml Q15M PRN IV DECREASED GLUCOSE; Start 08/10/17 at 23:45 Dextrose (D50w Syringe) 50 ml Q15M PRN IV DECREASED GLUCOSE; Start 08/10/17 at 23:45 Glucagon (Glucagen) 1 mg Q15M PRN IM DECREASED GLUCOSE; Start 08/10/17 at 23: 45 Glucose (Glutose) 15 gm Q15M PRN BUCCAL DECREASED GLUCOSE; Start 08/10/17 at 23:45 Diagnostic Test (Pha) (Accu-Chek) 1 ea 02 XX Last administered on 08/17/17 02 :42; Admin Dose 1 EA; Start 08/11/17 at 02:00 Carvedilol (Coreg) 25 mg BID PO Last administered on 08/18/17 08:30; Admin Dose 25 MG; Start 08/11/17 at 09:00 Senna (Senokot) 2 tab BID PO Last administered on 08/18/17 08:30; Admin Dose 2 TAB; Start 08/11/17 at 09:00 Docusate Sodium (Colace) 100 mg BID PO Last administered on 08/18/17 08:29; Admin Dose 100 MG; Start 08/11/17 at 09:00 Senna (Senokot) 1 tab HS PO ; Start 08/11/17 at 21:00 Acetaminophen (Tylenol Tab) 650 mg Q4H PRN PO PAIN Last administered on 12:46; Admin Dose 650 MG; Start 08/11/17 at 03:30 Magnesium Hydroxide (Milk Of Mag) 30 ml BID PRN PO CONSTIPATION; Start at 03:30 Lactulose (Enulose) 20 gm DAILY PRN PO CONSTIPATION; Start 08/11/17 at 03:30 Betamethasone/ Clotrimazole (Lotrisone Cr) 1 applic BID PRN TOP PRURITUS Last administered on 08/15/17 08:24; Admin Dose 1 APPLIC; Start 08/11/17 at 11:00 Hydralazine HCl (Apresoline) 100 mg BID PO Last administered on 08/18/17 08: 29; Admin Dose 100 MG; Start 08/14/17 at 21:00 Insulin Glargine (Lantus) 20 unit DAILY@20 SC Last administered on 08/17/17 20:13; Admin Dose 20 UNIT; Start 08/16/17 at 20:00 Losartan Potassium (Cozaar) 100 mg DAILY PO Last administered on 08/18/17 08: 30; Admin Dose 100 MG; Start 08/17/17 at 09:00 Meclizine HCl (Antivert) 12.5 mg TID PRN PO dizziness; Start 08/17/17 at 10:30 Hydralazine HCl (Apresoline) 10 mg Q4H PRN IV ELEVATED BLOOD PRESSURE Last administered on 08/18/17t 06:42; Admin Dose 10 MG; Start 08/18/17 at 06:30 Amlodipine Besylate (Norvasc) 5 mg DAILY PO ; Start 08/18/17 at 09:30 DARRICK MANNING NP Aug 18, 2017 10:43
[2017-08-18] MEDS: NIFEdipine (XL) 30 MG TAB PO SCH (15:49)
[2017-08-18] MEDS: INSULIN GLARGINE [LANtus] 3 ML PEN SC SCH (20:31)
[2017-08-18] MEDS: DIPHENHYDRAMINE 25 MG CAP PO PRN (20:37)
[2017-08-18] MEDS: ATORVASTATIN 20 MG TAB PO SCH (20:37)
[2017-08-18] MEDS: ACETAMINOPHEN 325 MG TAB PO PRN (20:38)
[2017-08-19 02:00] VITALS: BP 139/63; PULSE 60; RESP 18
[2017-08-19] MEDS: ACCUCHECK AT 2AM (Patients on SS coverage) XX SCH (02:00)
[2017-08-19 06:27] LABS: BASOPHIL # 0.1 10^3/ul (0.0-0.1); BASOPHILS % 0.6 % (0.0-2.0); EOSINOPHILS # 0.5 10^3/ul (0.0-0.5); EOSINOPHILS % 3.7 % (0.0-7.0); HEMATOCRIT 31.2 % (37.0-47.0); HEMOGLOBIN 10.5 g/dl (12.0-16.0); LYMPHOCYTES % 16.6 % (15.0-51.0); MEAN CORPUSCULAR HEMOGLOBIN 29.1 pg (29.0-33.0); MEAN CORPUSCULAR HGB CONC 33.7 g/dl (32.0-37.0); MEAN CORPUSCULAR VOLUME 86.4 fl (82.0-101.0); MEAN PLATELET VOLUME 9.9 fl (7.4-10.4); MONOCYTE # 1.1 10^3/ul (0.3-0.9); MONOCYTES % 9.1 % (0.0-11.0); NEUTROPHIL # 8.5 10^3/ul (1.6-7.5); NEUTROPHILS % 69.2 % (39.0-77.0); PLATELET COUNT 364 10^3/UL (140-415); RED BLOOD COUNT 3.61 10^6/ul (4.20-5.40); RED CELL DISTRIBUTION WIDTH 13.3 % (11.5-14.5); WHITE BLOOD COUNT 12.3 10^3/ul (4.8-10.8)
--- NOTE | 2017-08-19 06:53 | PN ---
DATE: 08/18/2017 PSYCHOLOGY -- INDIVIDUAL SESSION -- [id number] This is a followup on a patient who was seen last week. The patient was seen in bed. Patient was t ired and lethargic. The patient does have numerous medical problems, but does feel like she is josesito ng progress while she is in the program. The patient is motivated to get better and wants to return to her previous level of functioning. I worked with the patient supportively to try to help encour age her to continue to work on her physical and emotional health. Dictated By: BRE BETANCOURT PHD RK/CLARENCE Conf#: [id number] DID#: [id number]
[2017-08-19 07:06] LABS: CALCIUM 8.1 mg/dl (8.4-10.2); CREATININE 1.42 mg/dl (0.44-1.00); PHOSPHORUS 4.6 mg/dl (2.5-4.9); POTASSIUM 4.2 mmol/L (3.5-5.1)
[2017-08-19 07:48] VITALS: BP 141/65; PULSE 62; RESP 18
[2017-08-19] MEDS: ASPIRIN (EC) 81 MG TAB PO SCH (08:41)
--- NOTE | 2017-08-19 08:41 | CONS ---
Date/Time of Note Date/Time of Note DATE: 08/19/17 TIME: 08:40 Assessment/Plan Assessment/Plan Problems: (1) Diabetes mellitus type 2 in nonobese Status: Chronic Comment: Adequate glycemic control. Continue current regimen (2) Chronic kidney disease, stage III (moderate) Status: Chronic Comment: Stable and at baseline. No changes in therapeutics Consultation Date/Type/Reason Admit Date/Time Aug 10, 2017 at 22:23 Initial Consult Date August 162016 Type of Consultation: Endocrinology Reason for Consultation Diabetes mellitus on a multiple daily injection regimen Referring Provider: ARNOL DODSON MD, [facility] 24 HR Interval Summary Free Text/Dictation No changes, progressing with rehab Exam/Review of Systems Vital Signs Vitals Vital Signs Date Time Temp Pulse Resp B/P Pulse Ox O2 Delivery O2 Flow Rate FiO2 08/19/17 07:48 98.4 62 18 141/65 96 Room Air Intake and Output 08/18/17 08/18/17 08/19/17 15:00 23:00 07:00 Intake Total 300 ml 200 ml Output Total 200 ml 650 ml Balance 100 ml -450 ml Exam Constitutional: alert, oriented Respiratory: clear to auscultation, normal air movement Cardiovascular: nl pulses, regular rate and rhythm Gastrointestinal: nl liver, spleen, non-tender, soft Results Result Diagram: 08/19/17 0610 08/19/17 0610 Results 24 hrs Laboratory Tests Test 08/18/17 12:06 08/18/17 15:37 08/18/17 17:27 08/18/17 20:24 Bedside Glucose 95 235 H 176 193 Test 08/19/17 02:23 08/19/17 06:10 Bedside Glucose 131 White Blood Count 12.3 H Red Blood Count 3.61 L Hemoglobin 10.5 L Hematocrit 31.2 L Mean Corpuscular Volume 86.4 Mean Corpuscular Hemoglobin 29.1 Mean Corpuscular Hemoglobin Concent 33.7 Red Cell Distribution Width 13.3 Platelet Count 364 Mean Platelet Volume 9.9 Neutrophils % 69.2 Lymphocytes % 16.6 Monocytes % 9.1 Eosinophils % 3.7 Basophils % 0.6 Nucleated Red Blood Cells % 0.0 Neutrophils # 8.5 H Lymphocytes # 2.0 Monocytes # 1.1 H Eosinophils # 0.5 Basophils # 0.1 Nucleated Red Blood Cells # 0.0 Sodium Level 136 Potassium Level 4.2 Chloride Level 110 Carbon Dioxide Level 20 L Anion Gap 10 Blood Urea Nitrogen 57 H Creatinine 1.42 H Glucose Level 132 # Calcium Level 8.1 L Phosphorus Level 4.6 Magnesium Level 2.0 Medications Medications Current Medications Aspirin (Halfprin) 81 mg DAILY PO Last administered on 08/18/17 08:30; Admin Dose 81 MG; Start 08/11/17 at 09:00 Atorvastatin Calcium (Lipitor) 20 mg DAILY@21 PO Last administered on 20:37; Admin Dose 20 MG; Start 08/11/17 at 21:00 Miscellaneous Information 1 ea NOTE XX ; Start 08/10/17 at 23:45 Glucose (Glutose) 15 gm Q15M PRN PO DECREASED GLUCOSE; Start 08/10/17 at 23:45 Glucose (Glutose) 22.5 gm Q15M PRN PO DECREASED GLUCOSE; Start 08/10/17 at 23: 45 Dextrose (D50w Syringe) 25 ml Q15M PRN IV DECREASED GLUCOSE; Start 08/10/17 at 23:45 Dextrose (D50w Syringe) 50 ml Q15M PRN IV DECREASED GLUCOSE; Start 08/10/17 at 23:45 Glucagon (Glucagen) 1 mg Q15M PRN IM DECREASED GLUCOSE; Start 08/10/17 at 23: 45 Glucose (Glutose) 15 gm Q15M PRN BUCCAL DECREASED GLUCOSE; Start 08/10/17 at 23:45 Diagnostic Test (Pha) (Accu-Chek) 1 ea 02 XX Last administered on 08/17/17 02 :42; Admin Dose 1 EA; Start 08/11/17 at 02:00 Carvedilol (Coreg) 25 mg BID PO Last administered on 08/18/17 20:37; Admin Dose 25 MG; Start 08/11/17 at 09:00 Senna (Senokot) 2 tab BID PO Last administered on 08/18/17 08:30; Admin Dose 2 TAB; Start 08/11/17 at 09:00 Docusate Sodium (Colace) 100 mg BID PO Last administered on 08/18/17 08:29; Admin Dose 100 MG; Start 08/11/17 at 09:00 Senna (Senokot) 1 tab HS PO ; Start 08/11/17 at 21:00 Acetaminophen (Tylenol Tab) 650 mg Q4H PRN PO PAIN Last administered on 20:38; Admin Dose 650 MG; Start 08/11/17 at 03:30 Magnesium Hydroxide (Milk Of Mag) 30 ml BID PRN PO CONSTIPATION; Start at 03:30 Lactulose (Enulose) 20 gm DAILY PRN PO CONSTIPATION; Start 08/11/17 at 03:30 Betamethasone/ Clotrimazole (Lotrisone Cr) 1 applic BID PRN TOP PRURITUS Last administered on 08/15/17 08:24; Admin Dose 1 APPLIC; Start 08/11/17 at 11:00 Hydralazine HCl (Apresoline) 100 mg BID PO Last administered on 08/18/17 20: 36; Admin Dose 100 MG; Start 08/14/17 at 21:00 Insulin Glargine (Lantus) 20 unit DAILY@20 SC Last administered on 08/18/17 20:31; Admin Dose 20 UNIT; Start 08/16/17 at 20:00 Losartan Potassium (Cozaar) 100 mg DAILY PO Last administered on 08/18/17 08: 30; Admin Dose 100 MG; Start 08/17/17 at 09:00 Meclizine HCl (Antivert) 12.5 mg TID PRN PO dizziness; Start 08/17/17 at 10:30 Hydralazine HCl (Apresoline) 10 mg Q4H PRN IV ELEVATED BLOOD PRESSURE Last administered on 08/18/17 06:42; Admin Dose 10 MG; Start 08/18/17 at 06:30 Nifedipine (Procardia Xl) 30 mg DAILY PO Last administered on 08/18/17 15:49 ; Admin Dose 30 MG; Start 08/18/17 at 11:00 Diphenhydramine HCl (Benadryl) 25 mg Q8H PRN PO ITCHING Last administered on 20:37; Admin Dose 25 MG; Start 08/18/17 at 20:00 CELIO YAN MD Aug 19, 2017 08:41
[2017-08-19] MEDS: LOSARTAN 50 MG TAB PO SCH (08:42)
[2017-08-19] MEDS: NIFEdipine (XL) 30 MG TAB PO SCH (08:42)
[2017-08-19] MEDS: Insulin NOVOLOG SS MILD Algorithm (SS with meals and bedtime) SC SCH ×4 (08:45→21:00)
[2017-08-19] MEDS: INSULIN ASPART [NOVOLOG] 3 ML PEN SC SCH ×3 (08:47→17:27)
[2017-08-19] MEDS: SENNA TAB PO SCH ×3 (09:00→21:00)
[2017-08-19] MEDS: DOCUSATE SODIUM 100 MG CAP PO SCH ×2 (09:00→21:00)
--- NOTE | 2017-08-19 10:26 | CONS ---
Date/Time of Note Date/Time of Note DATE: 08/19/17 TIME: 10:23 Assessment/Plan Assessment/Plan Chief Complaint/Hosp Course 77-year-old female with NSTEMI, status post DKA, transferred to acute rehabilitation unit for further physical therapy. 1. Status post non-ST elevated [place]. -Status post cardiology evaluation and recommended medical management with ASA/ statin/BB 2. Poorly controlled type 2 diabetes with last known A1c 12.2. -Endocrinology following. On Accu-Cheks/ISS/Lantus. 3. Nonoliguric CORI on CKD. Renal function stabilized to baseline. -Nephrology following. Will continue to monitor renal function. 4. Hyponatremia. Improved. -Follow-up with nephrology recommendations. 5. Anemia of chronic kidney disease. -H&H stable. Will monitor. 6. Essential hypertension. Now stable after addition of nifedipine. -Continue with Procardia XL/ beta-blockers / ARB. 7. Hypothyroidism. -On Synthroid. 8. Status post UTI -Status post treatment. 9. Bilateral blurry vision/dizziness, likely vestibular etiology. Patient had negative workup for acute intracranial/iliac ischemic events. -Resolved with meclizine. Continue PRN dose. -Patient may also have possible diabetic retinopathy. Patient would benefit from outpatient ENT/ophthalmology evaluation. DVT prophylaxis: Ambulation/SCDs while in bed. Agree with discharge plan. Recommend continuation of diabetic management per endocrinology recommendations. Patient should be continued on current blood pressure regimen on discharge. She can also be discharged with PRN meclizine and recommend outpatient ENT/ophthalmology follow-up. Patient was seen in collaboration with . Problems: Consultation Date/Type/Reason Admit Date/Time Aug 10, 2017 at 22:23 Type of Consultation: Endocrinology Referring Provider: ARNOL DODSON MD, [facility] 24 HR Interval Summary Free Text/Dictation No acute distress. Plan for discharge in a.m. Exam/Review of Systems Vital Signs Vitals Vital Signs Date Time Temp Pulse Resp B/P Pulse Ox O2 Delivery O2 Flow Rate FiO2 08/19/17 07:48 98.4 62 18 141/65 96 Room Air Intake and Output 08/18/17 08/18/17 08/19/17 15:00 23:00 07:00 Intake Total 300 ml 200 ml Output Total 200 ml 650 ml Balance 100 ml -450 ml Exam General: Elderly female, not in any acute distress . HEENT: Normocephalic, Atraumatic, No laceration or hematoma; Eyes: PEERL, Conjunctiva clear, Anicteric sclera Neck: Supple without any lymphadenopathy, nontender, no JVD, no carotid bruits, trachea midline, no thyromegaly Cardiac: S1, S2 auscultated, regular rhythm and rate, no mumurs or gallop Pulmonary: Normal respiratory effort. Chest clear to auscultation bilaterally, no adventitious breath sounds GI: Abdomen normal to inspection. Soft, non tender, non- distended, no masses, no rebound tenderness or guarding. Bowel sounds active on all four quadrants Genitourinary: Deferred Extremities: No cyanosis, clubbing, or edema. Pulses [2+] bilaterally. Full ROM on all four extremities. No focal weakness appreciated. Neurologic: Alert to person, place, time, and situation. Affect appropriate, intact sensation. Skin: Clean,dry, and intact. No ecchymosis, no rashes, or lesions Results Result Diagram: 08/19/17 0610 08/19/17 0610 Results 24 hrs Laboratory Tests Test 08/18/17 12:06 08/18/17 15:37 08/18/17 17:27 08/18/17 20:24 Bedside Glucose 95 235 H 176 193 Test 08/19/17 02:23 08/19/17 06:10 08/19/17 08:36 Bedside Glucose 131 133 White Blood Count 12.3 H Red Blood Count 3.61 L Hemoglobin 10.5 L Hematocrit 31.2 L Mean Corpuscular Volume 86.4 Mean Corpuscular Hemoglobin 29.1 Mean Corpuscular Hemoglobin Concent 33.7 Red Cell Distribution Width 13.3 Platelet Count 364 Mean Platelet Volume 9.9 Neutrophils % 69.2 Lymphocytes % 16.6 Monocytes % 9.1 Eosinophils % 3.7 Basophils % 0.6 Nucleated Red Blood Cells % 0.0 Neutrophils # 8.5 H Lymphocytes # 2.0 Monocytes # 1.1 H Eosinophils # 0.5 Basophils # 0.1 Nucleated Red Blood Cells # 0.0 Sodium Level 136 Potassium Level 4.2 Chloride Level 110 Carbon Dioxide Level 20 L Anion Gap 10 Blood Urea Nitrogen 57 H Creatinine 1.42 H Glucose Level 132 # Calcium Level 8.1 L Phosphorus Level 4.6 Magnesium Level 2.0 Medications Medications Current Medications Aspirin (Halfprin) 81 mg DAILY PO Last administered on 08/19/17 08:41; Admin Dose 81 MG; Start 08/11/17 at 09:00 Atorvastatin Calcium (Lipitor) 20 mg DAILY@21 PO Last administered on 20:37; Admin Dose 20 MG; Start 08/11/17 at 21:00 Miscellaneous Information 1 ea NOTE XX ; Start 08/10/17 at 23:45 Glucose (Glutose) 15 gm Q15M PRN PO DECREASED GLUCOSE; Start 08/10/17 at 23:45 Glucose (Glutose) 22.5 gm Q15M PRN PO DECREASED GLUCOSE; Start 08/10/17 at 23: 45 Dextrose (D50w Syringe) 25 ml Q15M PRN IV DECREASED GLUCOSE; Start 08/10/17 at 23:45 Dextrose (D50w Syringe) 50 ml Q15M PRN IV DECREASED GLUCOSE; Start 08/10/17 at 23:45 Glucagon (Glucagen) 1 mg Q15M PRN IM DECREASED GLUCOSE; Start 08/10/17 at 23: 45 Glucose (Glutose) 15 gm Q15M PRN BUCCAL DECREASED GLUCOSE; Start 08/10/17 at 23:45 Diagnostic Test (Pha) (Accu-Chek) 1 ea 02 XX Last administered on 08/17/17 02 :42; Admin Dose 1 EA; Start 08/11/17 at 02:00 Carvedilol (Coreg) 25 mg BID PO Last administered on 08/19/17 08:43; Admin Dose 25 MG; Start 08/11/17 at 09:00 Senna (Senokot) 2 tab BID PO Last administered on 08/18/17 08:30; Admin Dose 2 TAB; Start 08/11/17 at 09:00 Docusate Sodium (Colace) 100 mg BID PO Last administered on 08/18/17 08:29; Admin Dose 100 MG; Start 08/11/17 at 09:00 Senna (Senokot) 1 tab HS PO ; Start 08/11/17 at 21:00 Acetaminophen (Tylenol Tab) 650 mg Q4H PRN PO PAIN Last administered on 20:38; Admin Dose 650 MG; Start 08/11/17 at 03:30 Magnesium Hydroxide (Milk Of Mag) 30 ml BID PRN PO CONSTIPATION; Start at 03:30 Lactulose (Enulose) 20 gm DAILY PRN PO CONSTIPATION; Start 08/11/17 at 03:30 Betamethasone/ Clotrimazole (Lotrisone Cr) 1 applic BID PRN TOP PRURITUS Last administered on 08/15/17 08:24; Admin Dose 1 APPLIC; Start 08/11/17 at 11:00 Hydralazine HCl (Apresoline) 100 mg BID PO Last administered on 08/19/17 08: 43; Admin Dose 100 MG; Start 08/14/17 at 21:00 Insulin Glargine (Lantus) 20 unit DAILY@20 SC Last administered on 08/18/17 20:31; Admin Dose 20 UNIT; Start 08/16/17 at 20:00 Losartan Potassium (Cozaar) 100 mg DAILY PO Last administered on 08/19/17 08: 42; Admin Dose 100 MG; Start 08/17/17 at 09:00 Meclizine HCl (Antivert) 12.5 mg TID PRN PO dizziness; Start 08/17/17 at 10:30 Hydralazine HCl (Apresoline) 10 mg Q4H PRN IV ELEVATED BLOOD PRESSURE Last administered on 08/18/17 06:42; Admin Dose 10 MG; Start 08/18/17 at 06:30 Nifedipine (Procardia Xl) 30 mg DAILY PO Last administered on 08/19/17 08:42 ; Admin Dose 30 MG; Start 08/18/17 at 11:00 Diphenhydramine HCl (Benadryl) 25 mg Q8H PRN PO ITCHING Last administered on 20:37; Admin Dose 25 MG; Start 08/18/17 at 20:00 DARRICK MANNING NP Aug 19, 2017 10:26
--- NOTE | 2017-08-19 10:44 | PN ---
DATE: 08/19/2017 SUBJECTIVE: The patient is stable. No events overnight. No fevers, chills, nausea, vomiting. OBJECTIVE: VITAL SIGNS: Blood pressure is 141/65, temperature 98.4, pulse 62, respiration 18. HEENT: Head is normocephalic. NECK: Supple. HEART: Regular rate. LUNGS: Show diminished breath sounds at base. ABDOMEN: Soft, nontender to palpation without rebound or guarding. EXTREMITIES: Negative for clubbing, cyanosis, no edema. DERMATOLOGIC: No rashes. MUSCULOSKELETAL: No joint effusions. NEUROLOGIC: No change in exam. MEDICATIONS: The patient's medications have been reviewed. LABORATORY DATA: Shows sodium 136, potassium 4.2, BUN 57, creatinine 1.42. White count 5.3 and manny telet count 364. ASSESSMENT AND PLAN: 1. Nonoliguric acute kidney injury with unknown baseline creatinine. Etiology is secondary to hemo dynamics. Renal function has stabilized. Continue current treatment plan, supportive care, renally dose all medicines. 2. Chronic kidney disease, stage IIIB. The patient is currently in acute kidney injury as stated a katy. Renal function has stabilized returning back to baseline. Continue disease factor modificati on. Continue good glycemic control and good blood pressure control. 3. Hypertension. Blood pressure is improving. Medications were adjusted. Continue to monitor. 4. Anemia. Monitor hemoglobin and hematocrit levels. 5. Mineral bone disorder. Continue to monitor calcium and phosphorus levels. 6. Diabetes. Continue current insulin regimen. 7. Hyponatremia, improved. 8. Metabolic acidosis, resolved. Dictated By: DENTON VILLA DO NR/NTS Conf#: [id number] DID#: [id number] CC: GREGORY ELIZABETH MD;*EndCC*
--- NOTE | 2017-08-19 12:01 | CONS ---
Date/Time of Note Date/Time of Note DATE: 08/19/17 TIME: 11:56 Consult Date/Type/Reason Admit Date/Time Aug 10, 2017 at 22:23 Type of Consultation: Endocrinology Ordering Provider: [facility]OL DODSON MD, [facility] Subjective Patient pleased with her progress and anxious to return home. She reports she will have assistance at home Objective Lungs clear abdomen soft Vital Signs Date Time Temp Pulse Resp B/P Pulse Ox O2 Delivery O2 Flow Rate FiO2 08/19/17 07:48 98.4 62 18 141/65 96 Room Air Intake and Output 08/18/17 08/18/17 08/19/17 15:00 23:00 07:00 Intake Total 300 ml 200 ml Output Total 200 ml 650 ml Balance 100 ml -450 ml Interdisciplinary Team Conference Bowel-continent Bladder-continent Integument-improved Physical Therapy Bed mobility-supervised Transfers-standby assist Ambulation-standby assist 150 feet Occupational Therapy Hygiene-stand by assist Dressing-standby assist Toileting-standby assist Cognition-standby assist/min Dysphasia-mechanical soft diet Patient is made steady functional gains during the course of the stay. Working towards discharge on 08/20 with home health physical therapy occupational therapy speech therapy follow-up. Discharge equipment recommendations include front wheel walker bedside commode shower chair. Patient will follow up with primary MD upon discharge Results/Medications Result Diagram: 08/19/17 0610 08/19/17 0610 Results 24 hrs Laboratory Tests Test 08/18/17 12:06 08/18/17 15:37 08/18/17 17:27 08/18/17 20:24 Bedside Glucose 95 235 H 176 193 Test 08/19/17 02:23 08/19/17 06:10 08/19/17 08:36 Bedside Glucose 131 133 White Blood Count 12.3 H Red Blood Count 3.61 L Hemoglobin 10.5 L Hematocrit 31.2 L Mean Corpuscular Volume 86.4 Mean Corpuscular Hemoglobin 29.1 Mean Corpuscular Hemoglobin Concent 33.7 Red Cell Distribution Width 13.3 Platelet Count 364 Mean Platelet Volume 9.9 Neutrophils % 69.2 Lymphocytes % 16.6 Monocytes % 9.1 Eosinophils % 3.7 Basophils % 0.6 Nucleated Red Blood Cells % 0.0 Neutrophils # 8.5 H Lymphocytes # 2.0 Monocytes # 1.1 H Eosinophils # 0.5 Basophils # 0.1 Nucleated Red Blood Cells # 0.0 Sodium Level 136 Potassium Level 4.2 Chloride Level 110 Carbon Dioxide Level 20 L Anion Gap 10 Blood Urea Nitrogen 57 H Creatinine 1.42 H Glucose Level 132 # Calcium Level 8.1 L Phosphorus Level 4.6 Magnesium Level 2.0 Medications Current Medications Aspirin (Halfprin) 81 mg DAILY PO Last administered on 08/19/17 08:41; Admin Dose 81 MG; Start 08/11/17 at 09:00 Atorvastatin Calcium (Lipitor) 20 mg DAILY@21 PO Last administered on 20:37; Admin Dose 20 MG; Start 08/11/17 at 21:00 Miscellaneous Information 1 ea NOTE XX ; Start 08/10/17 at 23:45 Glucose (Glutose) 15 gm Q15M PRN PO DECREASED GLUCOSE; Start 08/10/17 at 23:45 Glucose (Glutose) 22.5 gm Q15M PRN PO DECREASED GLUCOSE; Start 08/10/17 at 23: 45 Dextrose (D50w Syringe) 25 ml Q15M PRN IV DECREASED GLUCOSE; Start 08/10/17 at 23:45 Dextrose (D50w Syringe) 50 ml Q15M PRN IV DECREASED GLUCOSE; Start 08/10/17 at 23:45 Glucagon (Glucagen) 1 mg Q15M PRN IM DECREASED GLUCOSE; Start 08/10/17 at 23: 45 Glucose (Glutose) 15 gm Q15M PRN BUCCAL DECREASED GLUCOSE; Start 08/10/17 at 23:45 Diagnostic Test (Pha) (Accu-Chek) 1 ea 02 XX Last administered on 08/17/17 02 :42; Admin Dose 1 EA; Start 08/11/17 at 02:00 Carvedilol (Coreg) 25 mg BID PO Last administered on 08/19/17 08:43; Admin Dose 25 MG; Start 08/11/17 at 09:00 Senna (Senokot) 2 tab BID PO Last administered on 08/18/17 08:30; Admin Dose 2 TAB; Start 08/11/17 at 09:00 Docusate Sodium (Colace) 100 mg BID PO Last administered on 08/18/17 08:29; Admin Dose 100 MG; Start 08/11/17 at 09:00 Senna (Senokot) 1 tab HS PO ; Start 08/11/17 at 21:00 Acetaminophen (Tylenol Tab) 650 mg Q4H PRN PO PAIN Last administered on 20:38; Admin Dose 650 MG; Start 08/11/17 at 03:30 Magnesium Hydroxide (Milk Of Mag) 30 ml BID PRN PO CONSTIPATION; Start at 03:30 Lactulose (Enulose) 20 gm DAILY PRN PO CONSTIPATION; Start 08/11/17 at 03:30 Betamethasone/ Clotrimazole (Lotrisone Cr) 1 applic BID PRN TOP PRURITUS Last administered on 08/15/17 08:24; Admin Dose 1 APPLIC; Start 08/11/17 at 11:00 Hydralazine HCl (Apresoline) 100 mg BID PO Last administered on 08/19/17 08: 43; Admin Dose 100 MG; Start 08/14/17 at 21:00 Insulin Glargine (Lantus) 20 unit DAILY@20 SC Last administered on 08/18/17 20:31; Admin Dose 20 UNIT; Start 08/16/17 at 20:00 Losartan Potassium (Cozaar) 100 mg DAILY PO Last administered on 08/19/17 08: 42; Admin Dose 100 MG; Start 08/17/17 at 09:00 Meclizine HCl (Antivert) 12.5 mg TID PRN PO dizziness; Start 08/17/17 at 10:30 Hydralazine HCl (Apresoline) 10 mg Q4H PRN IV ELEVATED BLOOD PRESSURE Last administered on 08/18/17 06:42; Admin Dose 10 MG; Start 08/18/17 at 06:30 Nifedipine (Procardia Xl) 30 mg DAILY PO Last administered on 08/19/17 08:42 ; Admin Dose 30 MG; Start 08/18/17 at 11:00 Diphenhydramine HCl (Benadryl) 25 mg Q8H PRN PO ITCHING Last administered on 20:37; Admin Dose 25 MG; Start 08/18/17 at 20:00 GREGORY ELIZABETH MD Aug 19, 2017 12:01
[2017-08-19 20:00] VITALS: BP 150/70; PULSE 70; RESP 16
[2017-08-19] MEDS: INSULIN GLARGINE [LANtus] 3 ML PEN SC SCH (20:54)
[2017-08-19] MEDS: ATORVASTATIN 20 MG TAB PO SCH (20:57)
[2017-08-19] MEDS: DIPHENHYDRAMINE 25 MG CAP PO PRN (21:00)
[2017-08-19] MEDS: ACETAMINOPHEN 325 MG TAB PO PRN (21:00)
[2017-08-19 23:00] VITALS: BP 130/74; PULSE 64; RESP 16
[2017-08-20 02:00] VITALS: BP 146/72; PULSE 66; RESP 16
[2017-08-20] MEDS: ACCUCHECK AT 2AM (Patients on SS coverage) XX SCH (02:00)
[2017-08-20] MEDS: Insulin NOVOLOG SS MILD Algorithm (SS with meals and bedtime) SC SCH ×4 (07:35→19:45)
[2017-08-20 08:00] VITALS: BP 168/67; PULSE 65; RESP 18
--- NOTE | 2017-08-20 08:36 | DS ---
Date/Time of Note Date/Time of Note DATE: 08/20/17 TIME: 08:33 Discharge Summary Admission/Discharge Info Admit Date/Time Aug 10, 2017 at 22:23 Discharge Date/Time Discharge Diagnosis 1. Improved Debility 2. Dysphagia, improved 3. chronic kidney disease. 4. Diabetes mellitus, status post mild DKA. 5. Status post syncope. 6. Hypothyroidism. 7. Improvements in self-care, mobility, and cognition. Patient Condition: Good Hospital Course Patient was admitted for comprehensive interdisciplinary acute rehabilitation. Patient made steady functional gains and improved from a min/mod level to a Supervised / Modified Independent level for self care and mobility, including ambulating over 200 feet with the use of a front wheeled walker. Patient's cognition returned to baseline, and patient's dysphagia status improved during the course of the stay. Patient is being discharged home with recommendations for home health PT and OT follow up. DME recommendations: FWW; BSC; Shower Chair Patient will follow up with PMD upon DC. Home Meds Reported Medications Furosemide* (Furosemide*) 20 Mg Tablet, 20 MG PO DAILY, #60 TAB 08/04/17 Simvastatin* (Zocor*) 40 Mg Tablet, 40 MG PO QHS, #30 TAB 08/04/17 Metoprolol Succinate* (Toprol XL*) 100 Mg Tab.sr.24h, 100 MG PO DAILY, #30 TAB 08/04/17 Clonidine Hcl* (Clonidine Hcl*) 0.3 Mg Tablet, 0.6 MG PO BID, TAB 08/04/17 Primary Care Provider Not On Staff Doctor Pending Labs Laboratory Tests Test 08/19/17 08:36 08/19/17 12:26 08/19/17 17:19 08/19/17 20:52 Bedside Glucose 133mg/dL (70-220) 167mg/dL (70-220) 104mg/dL (70-220) 119mg/dL (70-220) Test 08/20/17 08:10 Bedside Glucose 130mg/dL (70-220) GREGORY ELIZABETH MD Aug 20, 2017 08:36
[2017-08-20] MEDS: INSULIN ASPART [NOVOLOG] 3 ML PEN SC SCH ×3 (08:39→18:13)
[2017-08-20] MEDS: ASPIRIN (EC) 81 MG TAB PO SCH (08:47)
[2017-08-20] MEDS: LOSARTAN 50 MG TAB PO SCH (08:47)
[2017-08-20] MEDS: NIFEdipine (XL) 30 MG TAB PO SCH (08:48)
[2017-08-20] MEDS: DOCUSATE SODIUM 100 MG CAP PO SCH ×2 (09:00→19:36)
[2017-08-20] MEDS: SENNA TAB PO SCH ×3 (09:00→19:37)
--- NOTE | 2017-08-20 10:05 | CONS ---
Date/Time of Note Date/Time of Note DATE: 08/20/17 TIME: 10:04 Assessment/Plan Assessment/Plan Chief Complaint/Hosp Course 77-year-old female with NSTEMI, status post DKA, transferred to acute rehabilitation unit for further physical therapy. 1. Status post non-ST elevated [place]. -Status post cardiology evaluation and recommended medical management with ASA/ statin/BB 2. Poorly controlled type 2 diabetes with last known A1c 12.2. -Endocrinology following. On Accu-Cheks/ISS/Lantus. 3. Nonoliguric CORI on CKD. Renal function stabilized to baseline. -Nephrology following. Will continue to monitor renal function. 4. Hyponatremia. Improved. -Follow-up with nephrology recommendations. 5. Anemia of chronic kidney disease. -H&H stable. Will monitor. 6. Essential hypertension. Now stable after addition of nifedipine. -Continue with Procardia XL/ beta-blockers / ARB. 7. Hypothyroidism. -On Synthroid. 8. Status post UTI -Status post treatment. 9. Bilateral blurry vision/dizziness, likely vestibular etiology. Patient had negative workup for acute intracranial/iliac ischemic events. -Resolved with meclizine. Continue PRN dose. -Patient may also have possible diabetic retinopathy. Patient would benefit from outpatient ENT/ophthalmology evaluation. DVT prophylaxis: Ambulation/SCDs while in bed. Agree with discharge plan. Recommend continuation of diabetic management per endocrinology recommendations. Patient should be continued on current blood pressure regimen on discharge. She can also be discharged with PRN meclizine and recommend outpatient ENT/ophthalmology follow-up. Patient was seen in collaboration with . Problems: Consultation Date/Type/Reason Admit Date/Time Aug 10, 2017 at 22:23 Type of Consultation: Endocrinology Referring Provider: ARNOL DODSON MD, [facility] 24 HR Interval Summary Free Text/Dictation Patient is for discharge today. No acute distress Exam/Review of Systems Vital Signs Vitals Vital Signs Date Time Temp Pulse Resp B/P Pulse Ox O2 Delivery O2 Flow Rate FiO2 08/20/17 02:00 98.5 66 16 146/72 97 Room Air Intake and Output 08/19/17 08/19/17 08/20/17 15:00 23:00 07:00 Intake Total 500 ml 150 ml 200 ml Output Total 750 ml Balance 500 ml 150 ml -550 ml Exam General: Obese, elderly [place] female who is currently short of breath. HEENT: Normocephalic, Atraumatic, No laceration or hematoma; Eyes: PEERL, Conjunctiva clear, Anicteric sclera Neck: Supple without any lymphadenopathy, nontender, no JVD, no carotid bruits, trachea midline, no thyromegaly Cardiac: S1, S2 auscultated, regular rhythm and rate, no mumurs or gallop Pulmonary: Diminished bibasilar. Increased work of breathing. No wheezing. GI: Abdomen obese to inspection. Soft, non tender, non- distended, no masses, no rebound tenderness or guarding. Bowel sounds active on all four quadrants Genitourinary: Deferred Extremities: Bilateral pitting edema +. no cyanosis, clubbing. Pulses [2+] bilaterally. Full ROM on all four extremities. No focal weakness appreciated. Neurologic: Alert to person, place, time, and situation. Affect appropriate, intact sensation. Skin: Clean,dry, and intact. No ecchymosis, no rashes, or lesions Results Result Diagram: 08/19/17 0610 08/19/17 0610 Results 24 hrs Laboratory Tests Test 08/19/17 12:26 08/19/17 17:19 08/19/17 20:52 08/20/17 08:10 Bedside Glucose 167 104 119 130 Medications Medications Current Medications Aspirin (Halfprin) 81 mg DAILY PO Last administered on 08/20/17 08:47; Admin Dose 81 MG; Start 08/11/17 at 09:00 Atorvastatin Calcium (Lipitor) 20 mg DAILY@21 PO Last administered on 20:57; Admin Dose 20 MG; Start 08/11/17 at 21:00 Miscellaneous Information 1 ea NOTE XX ; Start 08/10/17 at 23:45 Glucose (Glutose) 15 gm Q15M PRN PO DECREASED GLUCOSE; Start 08/10/17 at 23:45 Glucose (Glutose) 22.5 gm Q15M PRN PO DECREASED GLUCOSE; Start 08/10/17 at 23: 45 Dextrose (D50w Syringe) 25 ml Q15M PRN IV DECREASED GLUCOSE; Start 08/10/17 at 23:45 Dextrose (D50w Syringe) 50 ml Q15M PRN IV DECREASED GLUCOSE; Start 08/10/17 at 23:45 Glucagon (Glucagen) 1 mg Q15M PRN IM DECREASED GLUCOSE; Start 08/10/17 at 23: 45 Glucose (Glutose) 15 gm Q15M PRN BUCCAL DECREASED GLUCOSE; Start 08/10/17 at 23:45 Diagnostic Test (Pha) (Accu-Chek) 1 ea 02 XX Last administered on 08/17/17 02 :42; Admin Dose 1 EA; Start 08/11/17 at 02:00 Carvedilol (Coreg) 25 mg BID PO Last administered on 08/20/17 08:45; Admin Dose 25 MG; Start 08/11/17 at 09:00 Senna (Senokot) 2 tab BID PO Last administered on 08/18/17 08:30; Admin Dose 2 TAB; Start 08/11/17 at 09:00 Docusate Sodium (Colace) 100 mg BID PO Last administered on 08/19/17 21:00; Admin Dose 100 MG; Start 08/11/17 at 09:00 Senna (Senokot) 1 tab HS PO ; Start 08/11/17 at 21:00 Acetaminophen (Tylenol Tab) 650 mg Q4H PRN PO PAIN Last administered on 21:00; Admin Dose 650 MG; Start 08/11/17 at 03:30 Magnesium Hydroxide (Milk Of Mag) 30 ml BID PRN PO CONSTIPATION; Start at 03:30 Lactulose (Enulose) 20 gm DAILY PRN PO CONSTIPATION; Start 08/11/17 at 03:30 Betamethasone/ Clotrimazole (Lotrisone Cr) 1 applic BID PRN TOP PRURITUS Last administered on 08/15/17 08:24; Admin Dose 1 APPLIC; Start 08/11/17 at 11:00 Hydralazine HCl (Apresoline) 100 mg BID PO Last administered on 08/20/17 08: 46; Admin Dose 100 MG; Start 08/14/17 at 21:00 Insulin Glargine (Lantus) 20 unit DAILY@20 SC Last administered on 08/19/17 20:54; Admin Dose 20 UNIT; Start 08/16/17 at 20:00 Losartan Potassium (Cozaar) 100 mg DAILY PO Last administered on 08/20/17 08: 47; Admin Dose 100 MG; Start 08/17/17 at 09:00 Meclizine HCl (Antivert) 12.5 mg TID PRN PO dizziness; Start 08/17/17 at 10:30 Hydralazine HCl (Apresoline) 10 mg Q4H PRN IV ELEVATED BLOOD PRESSURE Last administered on 08/18/17 06:42; Admin Dose 10 MG; Start 08/18/17 at 06:30 Nifedipine (Procardia Xl) 30 mg DAILY PO Last administered on 08/20/17 08:48 ; Admin Dose 30 MG; Start 08/18/17 at 11:00 Diphenhydramine HCl (Benadryl) 25 mg Q8H PRN PO ITCHING Last administered on 21:00; Admin Dose 25 MG; Start 08/18/17 at 20:00 DARRICK MANNING NP Aug 20, 2017 10:05
--- NOTE | 2017-08-20 14:05 | PN ---
DATE: 08/20/2017 SUBJECTIVE: The patient is stable. No events overnight. No fevers, chills, nausea, vomiting. OBJECTIVE: VITAL SIGNS: Blood pressure is 146/72, respirations 16, pulse 66, temperature 98.5. HEENT: Head is normocephalic. NECK: Supple. HEART: Regular rate. LUNGS: Show diminished breath sounds at base. ABDOMEN: Soft, nontender to palpation. No rebound or guarding. EXTREMITIES: Negative for clubbing, cyanosis, no edema. DERMATOLOGIC: No rashes. MUSCULOSKELETAL: No joint effusions. NEUROLOGIC: No change in exam. MEDICATIONS: The patient's medications have been reviewed. LABORATORY DATA: Shows a white count of 12.3, hemoglobin 10.5, hematocrit 31.2, platelet count 364. ASSESSMENT AND PLAN: 1. Nonoliguric acute kidney injury with unknown baseline creatinine. Etiology of acute kidney inju ry is secondary to hemodynamics. Renal function has stabilized. Continue current treatment plan, s upportive care, renally dose all meds. 2. Chronic kidney disease stage IIIB. The patient is currently in acute kidney injury as stated ab ove. Renal function has returned back to baseline. Continue disease factor modification. Continue glycemic control, good blood pressure control. 3. Hypertension, . Continue current blood pressure regimen. 4. Anemia. Monitor hemoglobin and hematocrit levels. 5. Mineral bone disorder. Monitor calcium and phosphorus levels. 6. Diabetes. Continue current insulin regimen. 7. Hyponatremia, improved. 8. Metabolic acidosis, resolved. Dictated By: DENTON MCCORMACK/CLARENCE Conf#: [id number] DID#: [id number]
--- NOTE | 2017-08-20 16:02 | CONS ---
Date/Time of Note Date/Time of Note DATE: 08/20/17 TIME: 16:00 Assessment/Plan Assessment/Plan Problems: (1) Diabetes mellitus type 2 in nonobese Status: Chronic Comment: Continue medication treatment. I have given her prescription for an Accu-Chek Nevin glucose meter, if she is unable to handle her mealtime insulin she is to telephone me (I have given her my business card) how switch this over to [facility] Consultation Date/Type/Reason Admit Date/Time Aug 10, 2017 at 22:23 Initial Consult Date August 162016 Type of Consultation: Endocrinology Reason for Consultation Diabetes mellitus type 2 Referring Provider: ARNOL DODSON MD, [facility] 24 HR Interval Summary Free Text/Dictation Patient is improved and is able to go home today. Please note she states she can handle her insulin Exam/Review of Systems Vital Signs Vitals Vital Signs Date Time Temp Pulse Resp B/P Pulse Ox O2 Delivery O2 Flow Rate FiO2 08/20/17 08:00 98.3 65 18 168/67 99 Room Air Intake and Output 08/19/17 08/19/17 08/20/17 15:00 23:00 07:00 Intake Total 500 ml 150 ml 200 ml Output Total 750 ml Balance 500 ml 150 ml -550 ml Results No change in exam Result Diagram: 08/19/17 0610 08/19/17 0610 Results 24 hrs Laboratory Tests Test 08/19/17 17:19 08/19/17 20:52 08/20/17 08:10 08/20/17 12:34 Bedside Glucose 104 119 130 213 Medications Medications Current Medications Aspirin (Halfprin) 81 mg DAILY PO Last administered on 08/20/17 08:47; Admin Dose 81 MG; Start 08/11/17 at 09:00 Atorvastatin Calcium (Lipitor) 20 mg DAILY@21 PO Last administered on 20:57; Admin Dose 20 MG; Start 08/11/17 at 21:00 Miscellaneous Information 1 ea NOTE XX ; Start 08/10/17 at 23:45 Glucose (Glutose) 15 gm Q15M PRN PO DECREASED GLUCOSE; Start 08/10/17 at 23:45 Glucose (Glutose) 22.5 gm Q15M PRN PO DECREASED GLUCOSE; Start 08/10/17 at 23: 45 Dextrose (D50w Syringe) 25 ml Q15M PRN IV DECREASED GLUCOSE; Start 08/10/17 at 23:45 Dextrose (D50w Syringe) 50 ml Q15M PRN IV DECREASED GLUCOSE; Start 08/10/17 at 23:45 Glucagon (Glucagen) 1 mg Q15M PRN IM DECREASED GLUCOSE; Start 08/10/17 at 23: 45 Glucose (Glutose) 15 gm Q15M PRN BUCCAL DECREASED GLUCOSE; Start 08/10/17 at 23:45 Diagnostic Test (Pha) (Accu-Chek) 1 ea 02 XX Last administered on 08/17/17 02 :42; Admin Dose 1 EA; Start 08/11/17 at 02:00 Carvedilol (Coreg) 25 mg BID PO Last administered on 08/20/17 08:45; Admin Dose 25 MG; Start 08/11/17 at 09:00 Senna (Senokot) 2 tab BID PO Last administered on 08/18/17 08:30; Admin Dose 2 TAB; Start 08/11/17 at 09:00 Docusate Sodium (Colace) 100 mg BID PO Last administered on 08/19/17 21:00; Admin Dose 100 MG; Start 08/11/17 at 09:00 Senna (Senokot) 1 tab HS PO ; Start 08/11/17 at 21:00 Acetaminophen (Tylenol Tab) 650 mg Q4H PRN PO PAIN Last administered on 21:00; Admin Dose 650 MG; Start 08/11/17 at 03:30 Magnesium Hydroxide (Milk Of Mag) 30 ml BID PRN PO CONSTIPATION; Start at 03:30 Lactulose (Enulose) 20 gm DAILY PRN PO CONSTIPATION; Start 08/11/17 at 03:30 Betamethasone/ Clotrimazole (Lotrisone Cr) 1 applic BID PRN TOP PRURITUS Last administered on 08/15/17 08:24; Admin Dose 1 APPLIC; Start 08/11/17 at 11:00 Hydralazine HCl (Apresoline) 100 mg BID PO Last administered on 08/20/17 08: 46; Admin Dose 100 MG; Start 08/14/17 at 21:00 Insulin Glargine (Lantus) 20 unit DAILY@20 SC Last administered on 08/19/17 20:54; Admin Dose 20 UNIT; Start 08/16/17 at 20:00 Losartan Potassium (Cozaar) 100 mg DAILY PO Last administered on 08/20/17 08: 47; Admin Dose 100 MG; Start 08/17/17 at 09:00 Meclizine HCl (Antivert) 12.5 mg TID PRN PO dizziness; Start 08/17/17 at 10:30 Hydralazine HCl (Apresoline) 10 mg Q4H PRN IV ELEVATED BLOOD PRESSURE Last administered on 08/18/17 06:42; Admin Dose 10 MG; Start 08/18/17 at 06:30 Nifedipine (Procardia Xl) 30 mg DAILY PO Last administered on 08/20/17 08:48 ; Admin Dose 30 MG; Start 08/18/17 at 11:00 Diphenhydramine HCl (Benadryl) 25 mg Q8H PRN PO ITCHING Last administered on 21:00; Admin Dose 25 MG; Start 08/18/17 at 20:00 CELIO YAN MD Aug 20, 2017 16:02
[2017-08-20] MEDS: ATORVASTATIN 20 MG TAB PO SCH (19:37)
[2017-08-20] MEDS: INSULIN GLARGINE [LANtus] 3 ML PEN SC SCH (19:42)
== END 2017-08-20 19:57 | disposition home health service (06) | DRG 391 ==
LOC: VRC 22:23
PROVIDERS: ADMIT Physical Medicine & Rehabilitation; ATTEND Internal Medicine Pulmonary Disease
DX: R13.10 Dysphagia, unspecified (principal); I21.4 Non-ST elevation (NSTEMI) myocardial infarction; N17.9 Acute kidney failure, unspecified; E11.9 Type 2 diabetes mellitus without complications; I12.9 Hypertensive chronic kidney disease with stage 1 through stage 4 chronic kidney disease, or unspecified chronic kidney disease; D63.1 Anemia in chronic kidney disease; Z74.09 Other reduced mobility; E03.9 Hypothyroidism, unspecified; N18.9 Chronic kidney disease, unspecified; F06.31 Mood disorder due to known physiological condition with depressive features; N18.3 Chronic kidney disease, stage 3 (moderate)
CPT/HCPCS: 80048; 80053; 81001; 82575; 82962; 83735; 84100; 84156; 85025; 86803; 87081; 87086; 87340; 92507; 92526; 92610; 97110; 97112; 97116; 97163; 97167; 97530; 97535; J0360; J1815

== ENCOUNTER 2017-09-06 16:52 | Inpatient (IN) | END 2017-09-15 11:25 | DRG 57 ==

== ENCOUNTER → 2017-10-19 | Outpatient (CLI) | END | disposition home or self-care (01) ==

== ENCOUNTER 2017-10-24 11:49 | Emergency (ER) | END 2017-10-24 18:12 | disposition home or self-care (01) ==